=== PATIENT | male | born 1950 | race Caucasian/White ===

== ENCOUNTER 2019-09-27 09:14 | Outpatient (RCR) | payer MEDICARE, BC, SELFPAY ==
[2019-09-27 09:48] VITALS: BP 123/80; PULSE 100; RESP 20; TEMP 35.9; BMI 25.7
--- NOTE | 2019-09-27 17:45 | HP.PCM_ITS ---
(1) Sacral decubitus ulcer, stage IV Status: Chronic Current Visit: Yes Code(s): L89.154 - Pressure ulcer of sacral region, stage 4 (2) Hypertension Status: Chronic Current Visit: Yes Qualifiers: Hypertension type: essential hypertension Qualified Code(s): I10 - Essential (primary) hypertension Code(s): I10 - Essential (primary) hypertension (3) Hyperlipidemia Status: Chronic Current Visit: Yes Qualifiers: Hyperlipidemia type: unspecified Qualified Code(s): E78.5 - Hyperlipidemia, unspecified Code(s): E78.5 - Hyperlipidemia, unspecified (4) Cellulitis and abscess of buttock Status: Chronic Current Visit: Yes Code(s): L02.31 - Cutaneous abscess of buttock; L03.317 - Cellulitis of buttock History of Present Illness Date of Service: 09/27/19 Chief Complaint: pressure ulcer of sacrum/coccyx History of Wound: Jose is a very pleasant 69 yo gentleman who presents to the wound healing center for treatment of a pressure ulcer of his sacral area upon suggestion of his home health nurse. He was hospitalized on 08/23/2019 for bilateral pneumonia and exposure to COVID-19 and transferred from [place] to [facility] in [place] where he was intubated and in the ICU for he thinks approx. 2 weeks. He had pressure ulcer at the end of his hospital stay and reports that he was not turned while he was in the ICU and then was transferred to [facility] facility for another 10 days for strengthening and the physician at the Rehab facility did not examine the ulcer but prescribed optifoam dressing and when he was finally discharged home on 09/19/2019 he was prescribed to use Santyl and optifoam. He began receiving Home Health services this week and the nurse evaluated his sacral ulcer and felt it was likely infected and needed treatment and evaluation by a wound healing specialist and referred him to [facility] wound center. He reports that he and his have been using maxi pads and incontinence briefs to absorb the heavy drainage from the ulcer with changing up to 4 times/day. They have also been applying Santyl daily since he was discharged from rehab facility. He was started on doxycycline on 09/26/2019 by the supervising physician from Home Health. No cultures were taken of the ulcer. He denies any fever or chills, cough, dyspnea but admits to an odor and very heavy drainage and severe pain from his wound. He has been trying to offload his sacral area as it is very painful for him to lie on his back or sit because of the ulcer. Minimal hospital reports were received from [facility] that indicate that he was tested for multiple virus and bacterial causes of pneumonia, including coronaviruses but not COVID-19 specifically but based on his hospital course as he provides history and the imaging findings desccribed in the reports it is likely that he suffered from COVID-19 infection, although he does not exhibit any respiratory symptoms currently. Past Medical History Past Medical History: Chronic Problems Cellulitis and abscess of buttock (Chronic) Former smoker (Chronic) History of pneumonia (Chronic) Sacral decubitus ulcer, stage IV (Chronic) Benign prostatic hyperplasia (Chronic) Hypertension (Chronic) Hyperlipidemia (Chronic) Surgical History: appendectomy, herniorrhaphy, total knee arthroplasty, - - Back surgery, shoulder surgery. Allergies/Adverse Reactions: Allergies meloxicam Allergy (Verified 09/27/19 11:52) Swelling Home Medications: Ambulatory Orders Medication Instructions Recorded Metoprolol(XL)Succ [Toprol Xl 50 mg PO QHS 12/12/13 (Beta Tre)] Multivitamins,Therapeutic 1 tab PO DAILY 12/12/13 [Multivitamin] Aspirin E.C. [Ecotrin] 81 mg PO DAILY@0800 09/27/19 Lisinopril [Zestril] 10 mg PO DAILY 09/27/19 Pantoprazole Sodium [Protonix] 20 mg PO DAILY 09/27/19 Simvastatin 40 mg PO QHS 09/27/19 - Family History Maternal No pertinent history Paternal No pertinent history Lives: Spouse/ Significant Other Smoking Status: Former smoker Tobacco Use: Non-smoker Alcohol: None Drugs: None Review of Systems Constitutional: Reports: Weight Change - due to hospitalization. Denies: Chill s, Fever Eyes: Denies: Pain, Vision Change HEENT: Denies: Difficulty Hearing, Difficulty Swallowing, Sinus Congestion Cardiovascular: Denies: Chest Pain, Palpitations Respiratory: Reports: Shortness of breath upon exertion. Denies: Cough, Shortness of Breath Gastrointestinal: Denies: Diarrhea, Nausea, Vomiting Genitourinary: Denies: Dysuria, Hematuria Skin: Reports: Wounds Neurological: Denies: Numbness, Tingling Endocrine: Denies: Heat/ Cold Intolerance, Polydipsia, Polyuria Hematologic/ Lymphatic: Denies: Easy Bruising, Easy Bleeding - Physical Exam Vital Signs Temp Pulse Resp BP 96.6 F L 100 20 H 123/80 H 09/27/19 09:48 09/27/19 09:48 09/27/19 09:48 09/27/19 09:48 General: Alert, Oriented x3, Cooperative, No apparent distress HEENT: Atraumatic, Normocephalic Oral: Moist Mucosa Neck: Supple Abdomen: Soft, Non Tender Extremities: No edema Skin: Ulcer/ Wound Wound Measurements and Assessment WC - Nurse 1 - General Ulcer Measurement Start: 09/27/19 09:48 Freq: Status: Active Protocol: Activity Type Activity Date Activity User E-Sign Co-Sign Detail Recorded Client Recorded Date Recorded By Document 09/27/19 09:48 MW [id number] 09/27/19 10:04 MW 09/27/19 09:48 Wound Center Nurse 1 [Ulcer Assessment] #1 Sacrum -Combined with other wound No -Current Size (cm) - Length 10.5 -Current Size (cm) - Width 6.0 -Current Size (cm) - Depth 0.6 -Total Square Cm 63.00 -Date of Last Picture (Recall this 09/27/19 field) -Photo Taken Yes -Epithelialization None Present -Tunneling No -Undermining/Tunneling No -Circular Undermining No -Exudate Amt Large -Exudate Type Yellow/Green -Wound Margin Flat & Intact -Granulation Amt None Present (0 %) -Granulation Quality N/A -Slough/Fibrin Yes -Necrosis Amt Large (67-100%) -Necrotic Tissue Type Adherent Slough -Structure Exposed N/A -Texture (Kori-wound Skin Appearance) No Abnormality, Assessed -Moisture (Kori-wound Skin Appearance Assessed ) -Color (Kori-wound Skin Appearance) Assessed, Erythema -Temperature (Kori-wound Skin No Abnormality Appearance) (Pt Warm) -Tenderness on Palpation (Kori-wound No Skin Appearance) -Ulcer Cleansing soap and water -Foul Odor after Cleansing No -Anesthetic Used 4% Lidocaine Solution,5% Lidocaine Gel [Edema Assessment] -Lower Limb Edema Present No WC - Nurse 2 - General Ulcer CM Notes Start: 09/27/19 09:48 Freq: Status: Active Protocol: Activity Type Activity Date Activity User E-Sign Co-Sign Detail Recorded Client Recorded Date Recorded By Document 09/27/19 10:42 DV [id number] 09/27/19 11:06 DV 09/27/19 10:42 Wound Center Nurse 2 [Procedure/Treatment] #1 Sacrum -Time 10:48 -Correct Patient Yes -Correct Side, Site, Position Yes -Correct Procedure Yes -Procedure Performed Yes -Type of Procedure Debridement -Clinical Debridement Subcutaneous -Post Debridement Size (cm) - Length 11.3 -Post Debridement Size (cm) - Width 5.0 -Post Debridement Size (cm) - Depth 3.5 -Total Square Cm 56.50 -Wound/Ulcer Outcome Not Healed -Ulcer Cleansing Rinsed/ Irrigated with Saline -Foul Odor after Cleansing No -Bioengineered Tissue No -Bleeding Controlled with Pressure -Offloading No -Treatment Response Procedure Tolerated Well [See Physician Procedure note for Specifics] Pain Scale: 0-10 Numeric [Pain] -Is Patient Pain Free? Yes Psych/Mental Status: Normal Affect, Appropriate Debridement Note Post-Debridement Measurements/Treatment WC - Nurse 2 - General Ulcer CM Notes Start: 09/27/19 09:48 Freq: Status: Active Protocol: Activity Type Activity Date Activity User E-Sign Co-Sign Detail Recorded Client Recorded Date Recorded By Document 09/27/19 10:42 DV [id number] 09/27/19 11:06 DV 09/27/19 10:42 Wound Center Nurse 2 #1 Sacrum -Time 10:48 -Correct Patient Yes -Correct Side, Site, Position Yes -Correct Procedure Yes -Procedure Performed Yes -Type of Procedure Debridement -Clinical Debridement Subcutaneous -Post Debridement Size (cm) - Length 11.3 -Post Debridement Size (cm) - Width 5.0 -Post Debridement Size (cm) - Depth 3.5 -Total Square Cm 56.50 -Wound/Ulcer Outcome Not Healed -Ulcer Cleansing Rinsed/ Irrigated with Saline -Foul Odor after Cleansing No -Bioengineered Tissue No -Bleeding Controlled with Pressure -Offloading No -Treatment Response Procedure Tolerated Well Pain Scale: 0-10 Numeric Is Patient Pain Free? Yes Wound debrided: sacrum Laterality: Not Applicable Wound Grade/Stage: Stage IV Type of Debridement: Excisional debridement Anesthesia Used: 4% Lidocaine Solution, 5% Lidocaine Gel Depth: Down to and including healthy tissue, in the subcutaneous layer, to muscle, to bone Percentage of wound debrided: 100 Instrument Used: #15 blade, Forceps Tissue Removed: devitalized tissue, necrotic fatty tissue Severity: Necrosis of Muscle Amount of bleeding with debridement: Mild Bleeding Controlled with: Compression and gauze Patient tolerated procedure well Assessment/Plan Active Problems Cellulitis and abscess of buttock (Chronic) Sacral decubitus ulcer, stage IV (Chronic) Hypertension (Chronic) Hyperlipidemia (Chronic) Assessment: Stage IV pressure ulcer of sacrum/coccyx - possible osteomyelitis. Cellulitis buttock. HTN. h/o bilateral pneumonia - likely COVID-19 - resolved Plan: Jose's ulcer was evaluated and debrided but debridement was discontinued once the bony sacrum was identified and it was clear that a larger more in-depth surgical debridement would be necessary. Discussed options for further treatment and he was referred to the ER at [facility] for imaging and labs as well as consultation with ID and surgery for definitive and comprehensive treatment and to expedite his care as an inpatient to improve potential outcome and prevent further tissue loss. His case was discussed with Dr. Prasad in the ER as well as Dr. Dooley. His wound was dressed with a wet to dry dressing and his transported him to the ER via their private vehicle. He will likely require a wound vac to help mediate drainage and fill the deficit that surgical debridement will leave and this was explained and discussed with the patient. Will follow up based upon his hospital course and testing. Encouraged to call when he is discharged from hospital to schedule appointment for follow up.
== END 2019-10-13 23:59 ==
LOC: WC 09:14
PROVIDERS: PCP Internal Medicine Infectious Disease; Referring Provider Internal Medicine Infectious Disease; Visit Provider Family Medicine
DX: L89.154 Pressure ulcer of sacral region, stage 4 (principal); I10 Essential (primary) hypertension; E78.5 Hyperlipidemia, unspecified; L03.317 Cellulitis of buttock; Z87.891 Personal history of nicotine dependence; Z79.82 Long term (current) use of aspirin; Z79.899 Other long term (current) drug therapy
CPT/HCPCS: 11042; 11045; 99204; G0463

== ENCOUNTER 2019-09-27 11:48 | Inpatient (IN) | payer MEDICARE, SELFPAY ==
[2019-09-27] VITALS (7 sets, daily range): BP systolic 120–138; BP diastolic 80–107; PULSE 76–104; RESP 17–18; TEMP 36.4–36.9; O2SAT 92–99; BMI 25.7; BMI 26.1
[2019-09-27 13:22] LABS: Absolute Lymphocyte Count 2.02 X10^3/uL (0.83-4.51); Absolute Neutrophil Count 6.8 X10^3/uL (2.0-7.7); Basophil# 0.06 X10^3/uL; Basophil% 0.6 % (0-1); Eosinophil# 0.07 X10^3/uL; Eosinophils% 0.7 % (0-5); Hematocrit 33.6 % (40-54); Hemoglobin 10.8 g/dL (13.0-16.5); Lymphocyte # 2.02 X10^3/ul (4.0); Lymphocyte % 20.2 % (19-41); Mean Corp Hgb Conc 32.1 g/dL (32-36); Mean Corpuscular Hgb 29.8 pg (27.0-32.0); Mean Corpuscular Volume 92.6 fL (80-94); Mean Platelet Vol. 10.1 fl (6.2-12.0); Monocyte# 0.95 X10^3/uL; Monocyte% 9.5 % (0-10); NRBC Flagged by Analyzer 0 % (0-5); Neutrophil # 6.81 X10^3/uL (2.7-7.7); Neutrophil % 68.1 % (47-70); Platelet Count 273 K/mm3 (150-450); RBC Distribution Width CV 13.4 % (11.6-14.6); RBC Distribution Width SD 45.3 fl (35.1-43.9); Red Blood Count 3.63 M/mm3 (4.6-6.2)
[2019-09-27 13:30] LABS: International Normalized Ratio 1.1
[2019-09-27 13:31] LABS: Partial Thromboplast Time 25.8 Seconds (24.1-36.2)
--- NOTE | 2019-09-27 13:36 | CT_ITS ---
STUDY: CT ABDOMEN AND PELVIS WITHOUT CONTRAST REASON FOR EXAM: Male, 69 years old. DECUBITUS ULCER SENT TO BE ADMITTED FOR SACRAL WOUND SX WAS ON VENT FOR 2 WEEKS GOT OUT OF HOSP 2 WEEKS AGO. RADIATION DOSAGE (If Supplied By Facility): CTDIvol = ( 9.05 ) mGy, DLP = ( 544.99 ) mGycm TECHNIQUE: Transaxial images were obtained from the dome of the diaphragm to the symphysis pubis without oral contrast, and without intravenous contrast. Sagittal and coronal images were reconstructed. Individualized dose optimization techniques were used for this CT. COMPARISON: None. FINDINGS: There is a 2.8 cm x 3.9 cm ulceration in the central buttocks just distal to the coccyx. The ulceration extends into the right gluteus maximum muscle with air within it. This also extends into the medial left gluteus maximum muscle. I also suspect involvement of the overlying lowest coccygeal segment. Persistent increased linear markings in the lower lobes as well as in the right middle lobe with focal areas of bronchiectasis. The visualized portions of the heart are within normal limits. Normal liver. Normal gallbladder and extrahepatic biliary system. Normal spleen. Normal pancreas. Normal bilateral adrenal glands. Normal right kidney. Normal left kidney. Moderate sized hiatal hernia. Normal small intestine. There are multiple colonic diverticula consistent with diverticulosis. The appendix is visualized and appears normal. There is diffuse atherosclerotic calcification of the abdominal aorta, without a demonstrated aneurysm. Normal inferior vena cava. There is borderline retroperitoneal lymphadenopathy with enlarged nodes no greater than 10mm in the short axis diameter. Normal urinary bladder. There is a left-sided inguinal hernia containing adipose tissue. There are diffuse degenerative changes of the visualized lumbar spine. CT/Abdomen/Pelvis without Cont IMPRESSION: Soft tissue ulceration with extension into the right and left gluteus maximum muscle as with air. I suspect involvement of the distal coccygeal bony element. Electronically Signed: Yuri Valadez, at 14:22 EDT , Service support ,
[2019-09-27 13:39] LABS: ALB/GLOB Ratio 0.7 RATIO (0.9-2.4); AST(SGOT) 18 U/L (15-37); Alanine Aminotransfer ALT/SGPT 28 U/L (16-61); Albumin, Serum 2.9 g/dL (3.2-5.0); Alkaline Phosphatase 79 U/L (45-117); Anion Gap 6 (5-15); BUN 13 mg/dL (7-18); BUN/Creat Ratio 13.9 RATIO (10-20); Calcium,Total 9.5 mg/dL (8.5-10.1); Chloride 107 mmol/L (98-107); Creatinine, Serum 0.93 mg/dL (0.70-1.30); EST Glomerular Filtration Rate 86 mL/min (>60); Est Glom Filt Rate - Afr Amer 104 mL/min (>60); Estimated Creatinine Clearance 89.61 ml/min; Glucose 98 mg/dL (74-106); Potassium 3.8 mmol/L (3.5-5.1); Protein, Total 6.9 g/dL (6.4-8.2); Sodium Level 141 mmol/L (136-145)
[2019-09-27 13:42] LABS: Lactic Acid 1.9 mmol/L (0.4-1.9)
--- NOTE | 2019-09-27 14:46 | NURSING ---
MED SURG DECUBITUS ULCER ASHELFAH
--- NOTE | 2019-09-27 14:58 | PCM.HP.STD ---
Problem List (1) Sacral decubitus ulcer, stage IV Status: Acute (2) Benign prostatic hyperplasia Status: Chronic (3) Hypertension Status: Chronic (4) Hyperlipidemia Status: Chronic History of Present Illness Date of Admission: 09/27/19 Chief Complaint: Patient was sent to ED by wound care center for infected sacral ulcer. The patient is a 69 year old M with past medical history as mentioned above who was sent by Dr. Cannon at the wound care center today for infected decubitus sacral ulcer. Patient had a history of pneumonia on August 23, 2019, ended up in the ICU on mechanical ventilation for 2 weeks at [facility] and then he was transferred to the floor for 1 week and then he went to a longterm for rehabilitation for another week. He was discharged home in early September. During that time, he developed sacral ulcer which has been draining since he came out of the longterm. Since that time, he has been having pain at the sacral region, dull aching constant pain, 4-5 out of 10 in severity, sometimes becomes more sharp pain upon moving and standing, not radiating, associated with pus discharge and without aggravating or relieving factors. He denied fever or chills. He mentioned that his has been changing the dressing almost 4 times a day because of extensive drainage which is mainly pus. In the emergency department, his vital signs were stable. Routine blood work was remarkable for hemoglobin of 10.8 g/dL, otherwise normal. Lactic acid was normal. LFT was unremarkable. CT scan abdomen and pelvis without contrast revealed soft tissue ulceration with extension into the right and left gluteus reese muscles with air, possible involvement of the distal coccygeal bone. Patient is being admitted for infected stage IV decubitus sacral ulcer with extension into the bilateral gluteal reese muscles and possible coccygeal bone involvement. Past Medical History Past Medical History (Chronic Problems): Chronic Problems Benign prostatic hyperplasia (Chronic) Hypertension (Chronic) Hyperlipidemia (Chronic) Allergies meloxicam Allergy (Verified 09/27/19 11:52) Swelling Home Medications: Ambulatory Orders Medication Instructions Recorded Metoprolol(XL)Succ [Toprol Xl 50 mg PO QHS 12/12/13 (Beta Tre)] Multivitamins,Therapeutic 1 tab PO DAILY 12/12/13 [Multivitamin] Aspirin E.C. [Ecotrin] 81 mg PO DAILY@0800 09/27/19 Lisinopril [Zestril] 10 mg PO DAILY 09/27/19 Pantoprazole Sodium [Protonix] 20 mg PO DAILY 09/27/19 Simvastatin 40 mg PO QHS 09/27/19 Surgical History: appendectomy, herniorrhaphy, total knee arthroplasty, - - Back surgery, shoulder surgery. Psychiatric History: No pertinent psych hx Lives: Spouse/ Significant Other Smoking Status: Former smoker - Smoked for short period Of time when he was younger. Alcohol: Occasional Drugs: None - *Family History Maternal History Items: No pertinent history Paternal History Items: No pertinent history Review of Systems Constitutional: Denies: Anorexia, Chills, Fever, Weakness Eyes: Denies: Blurred vision, Double vision, Drainage, Redness HEENT: Denies: Difficulty Hearing, Ear Pain, Eye Pain, Nasal Congestion, Sore Throat Cardiovascular: Denies: Chest Pain, Chest Pressure, Chest Tightness, Edema, Heaviness, Palpitations, Syncope Respiratory: Denies: Cough, Pleuritic Pain, Shortness of Breath, Sputum production, Wheezing Gastrointestinal: Denies: Abdominal Pain, Constipation, Diarrhea, Nausea, Vomiting Genitourinary: Denies: Dysuria, Frequency, Hematuria Musculoskeletal: Reports: Back Pain. Denies: Arm Pain, Foot Pain Skin: Denies: Dryness, Rash Neurological: Denies: Balance problems, Double vision, Change in Speech, Slurred speech, Headaches, Incoordination, Numbness Psychiatric: Denies: Anxiety, Depression Endocrine: Denies: Change in Body Habitus, Polydipsia, Polyuria VTE Information - Inpt Only VTE Present on Admission: No VTE Mechan Device Prophylaxis: None VTE Pharm Prophylaxis ordered?: Yes Patient Problems: Active and Suspected Problems Sacral decubitus ulcer, stage IV (Acute) - Physical Exam Vitals/I&O's: Vital Signs Temp Pulse Resp BP Pulse Ox 98.2 F 81 17 127/107 H 98 09/27/19 13:40 09/27/19 13:49 09/27/19 13:49 09/27/19 13:49 09/27/19 13:49 Oxygen Delivery Method Room Air Weight: 203 lb 6.4 oz Body Mass Index (BMI) 26.1 General: Alert, Oriented x3, Cooperative, No apparent distress HEENT: Atraumatic, PERRLA, EOMI, Normocephalic Oral: Moist Mucosa, No Gingival or Mucosal Lesions/ Ulcerations Neck: Supple, No JVD, Negative Carotid Bruits, Trachea Midline, Thyroid Normal Size and Texture Lungs: Clear to auscultation, Normal air movement, No rhonchi, No wheeze, No rales Cardiovascular: Regular rate, Regular Rhythm, Normal S1, Normal S2, PMI Normal Abdomen: Bowel Sounds Present, Soft, Non Tender, Non-Distended, No Hepato-splenomegaly Extremities: No clubbing, No cyanosis, No edema Skin: No rashes, Ulcer/ Wound, - - Lower back: Decubitus sacral ulcer measuring about 6 x 7 cm, very deep, pus with surrounding mild erythema. Lymphatic: No Cervical, Supraclavicular, or Inguinal Adenopathy Neurological: Cranial nerves II-XII grossly intact, Motor Exam 5/5 strength throughout Psych/Mental Status: Normal Affect, Appropriate, Alert and oriented to time, place, person, mood and affect Laboratory Results 09/27/19 13:10: WBC 10.0, RBC 3.63 L, Hgb 10.8 L, Hct 33.6 L, MCV 92.6, MCH 29.8, MCHC 32.1, RDW Std Deviation 45.3 H, RDW Coeff of Thelma 13.4, Plt Count 273, MPV 10.1, Immature Gran % (Auto) 0.900, Neut % (Auto) 68.1, Lymph % (Auto) 20.2, [place] % (Auto) 9.5, Eos % (Auto) 0.7, Baso % (Auto) 0.6, Absolute Neuts (auto) 6.8, Absolute Lymphs (auto) 2.02, Nucleated RBC % 0 09/27/19 13:10: PT 14.0, INR 1.1, APTT 25.8 09/27/19 13:10: Sodium 141, Potassium 3.8, Chloride 107, Carbon Dioxide 28.0, Anion Gap 6, BUN 13, Creatinine 0.93, Estim Creat Clear Calc 89.61, Est GFR (MDRD) Af Amer 104, Est GFR (MDRD) Non-Af 86, BUN/Creatinine Ratio 13.9, Glucose 98, Calcium 9.5, Total Bilirubin 0.50, AST 18, ALT 28, Alkaline Phosphatase 79, Total Protein 6.9, Albumin 2.9 L, Globulin 4.0, Albumin/Globulin Ratio 0.7 L 09/27/19 13:10: Lactic Acid 1.9 Clinical Impression(s) from Imaging Studies Abdomen/Pelvis CT 09/27/19 13:36 IMPRESSION: Soft tissue ulceration with extension into the right and left gluteus maximum muscle as with air. I suspect involvement of the distal coccygeal bony element. Electronically Signed: Yuri Valadez, at 14:22 EDT , Service support , Assessment/Plan All Active Problems Sacral decubitus ulcer, stage IV (Acute) This is a 69 years old male patient was sent to ED from the wound care center by Dr. Cannon for infected stage IV decubitus sacral ulcer and he is being admitted for treatment and he may need surgical intervention. #1 infected stage IV decubitus sacral ulcer: With involvement of bilateral gluteal reese muscles and possible coccygeal bone involvement. No evidence of sepsis or severe sepsis. This also developed after patient was in ICU for 2 weeks for pneumonia at [facility]. It has been draining pus for several weeks. Vital signs are stable, no leukocytosis. Plan: Admit to MedSurg floor, blood culture, wound culture, urinalysis, urine culture, MRSA wound screen by PCR, Tylenol PRN, OxyIR PRN, Zofran PRN, start IV vancomycin and Zosyn, plastic surgery consult, wound care nurse consult, preoperative chest x-ray and EKG, repeat CBC and BMP after tomorrow, PT OT evaluation and treatment. #2 recent history of pneumonia: Completed course of antibiotics several weeks ago, resolved. Respiratory status stable, pulse ox is maintained on room air. #3 anemia: Likely chronic because of the acute recent illness. Hemoglobin is 10.8 g/dL. No evidence of active bleeding. No indication for blood transfusion. Plan to monitor. #4 hypertension: Blood pressure stable, continue lisinopril and metoprolol as well as aspirin. #5 hyperlipidemia: Stable, continue statins. #6 benign prostatic hypertrophy: Patient told me that he does have BPH but he is not taking medications. He denied any significant urinary symptoms. #7 DVT prophylaxis: Subcu Lovenox. This note was generated with Dragon dictation software. It may contain incorrect words, spelling, and punctuation that were not noted in checking the note before signing. Inpatient E&M: 96720 Init Hosp L3
--- NOTE | 2019-09-27 15:05 | ED.DCSUM_ITS ---
- ER Visit Summary Date of Service: 09/27/19 Chief Complaint: Decubitus ulcer History of Present Illness: The patient is a [address] Alvarado. He reports that he was admitted to [facility] in August and was in the ICU on a ventilator for 2 weeks. He was then there for a week after that. During this period of time he developed a decubitus ulcer. States that he tested negative for COVID-19 twice while there. Patient went to the wound clinic today and saw Dr. Cannon and had debridement of his decubitus ulcer, but he is got purulent drainage and that extends to bone so she sent him to the emergency department for further evaluation. Physical Examination: Vitals: Stable. Afebrile. General: Well-nourished and well-developed. Head: Normocephalic atraumatic. Neck: Supple, no lymphadenopathy. No JVD. Nontender. Cardiovascular: Regular rate and rhythm. No murmurs. Respiratory: No respiratory distress. Clear to auscultation bilaterally. Abdominal: Soft, nontender, nondistended, normal bowel sounds. No guarding, rebound, or peritoneal signs. Back: Nontender. Extremities: Nontender, no edema. Skin: Approximately 11 cm in diameter decubitus ulcer over the sacrum with purulent drainage that is foul-smelling. This does appear to extend to bone. Neurologic: Alert and oriented ?3. Cranial nerves II through XII are intact. Normal strength and sensation. Psych: Normal affect. Test Results: CBC shows an H&H of 10.8 and 33.6. Chem-7 is normal. Lactic acid is 1.9. LFTs show an albumin of 2.9. INR is 1.1. PTT is 25.8. Clinical Impression(s) from Imaging Studies Abdomen/Pelvis CT 09/27/19 13:36 IMPRESSION: Soft tissue ulceration with extension into the right and left gluteus maximum muscle as with air. I suspect involvement of the distal coccygeal bony element. Electronically Signed: Yuri Valadez, at 14:22 EDT , Service support , Emergency Department Course and Treatment: Aerobic and anaerobic cultures were obtained from the wound. Blood cultures were sent. The patient was given Zosyn and vancomycin IV. Treatment Plan: The patient was discussed with Dr. Dooley and Dr. Mills. He will be admitted to the hospital for further evaluation and treatment. Disposition: Admitted in stable condition. Impression: 1. Decubitus ulcer, infected. This note was generated with [employer] dictation software. It may contain incorrect words, spelling, and punctuation that were not noted in review of the chart prior to signing
--- NOTE | 2019-09-27 15:18 | EKG12_ITS ---
Test Reason : Blood Pressure : / mmHG Vent. Rate : 084 BPM Atrial Rate : 084 BPM P-R Int : 166 ms QRS Dur : 090 ms QT Int : 408 ms P-R-T Axes : 026 021 041 degrees QTc Int : 482 ms Poor data quality, interpretation may be adversely affected Normal sinus rhythm Prolonged QT Abnormal ECG When compared with ECG of 01-AUG-2013 17:41, Vent. rate has increased BY 28 BPM Confirmed by MIRA PENN, EYAD ([id number]), assistant production editor ARIS EDMOND ([id number]) on 10/01/2019 4:03:01 PM Referred By: MAHENDRA Confirmed By:EYAD MEYERS MD
--- NOTE | 2019-09-27 15:26 | RAD_ITS ---
STUDY: X-RAY CHEST REASON FOR EXAM: Male, 69 years old. PRE-OP FOR SACRAL WOUND TECHNIQUE: 1 view COMPARISON: None. FINDINGS: Mild linear type and interstitial changes of the right lung likely to be chronic in nature. Slight elevation of the right diaphragm. Negative for substantial pleural. Negative for major consolidation. Normal size heart. Normal mediastinum and alice. Normal visualized pulmonary arteries. Mild elongation of the thoracic aorta. Normal visualized thoracic spine. Normal visualized ribs, clavicles, and shoulders. There is no demonstrated abnormality of the visualized soft tissue structures of the upper abdomen. RAD/Chest 1 View (Portable) IMPRESSION: Chronic changes right lung. Negative for major consolidation, atelectasis, cardiomegaly or pleural effusion. Electronically Signed: Andressa Mitchell MD at 16:51 EDT , Service support ,
--- NOTE | 2019-09-27 16:01 | PCM.RX.CS ---
Consult Pharmacy has been consulted to manage selected antiobiotic: Vancomycin Type of Consult: New start Suspected Infection: Skin/Soft tissue, Other - possible bone involvement Prior Doses of Antibiotics Received/Current Regimen: Received 1500mg IV x1 in E.R. starting at 15:00 today Labs: Sodium 141 mmol/L (136-145) 09/27/19 13:10 Potassium 3.8 mmol/L (3.5-5.1) 09/27/19 13:10 Chloride 107 mmol/L (98-107) 09/27/19 13:10 Carbon Dioxide 28.0 mmol/L (21.0-32.0) 09/27/19 13:10 Anion Gap 6 (5-15) 09/27/19 13:10 BUN 13 mg/dL (7-18) 09/27/19 13:10 Creatinine 0.93 mg/dL (0.70-1.30) 09/27/19 13:10 Est GFR (MDRD) Af Amer 104 mL/min (>60) 09/27/19 13:10 Est GFR (MDRD) Non-Af 86 mL/min (>60) 09/27/19 13:10 BUN/Creatinine Ratio 13.9 RATIO (10-20) 09/27/19 13:10 Glucose 98 mg/dL (74-106) 09/27/19 13:10 Microbiology: Microbiology 09/27/19 12:10 Wound - Sacral Gram Stain - Final Weight used for dosin.7 kg Estimated Creatinine Clearance: 89.6ml/min Goal Trough: 15-20 mcg/mL Pharmacy Plan for Drug Dosing: After initial dose, continue with 1500mg IV q12h. Obtain a trough level before the 4th dose in the morning of 09/29/19. Pharmacy Service will continue to monitor and adjust dosing as required. Follow-Up Labs: Trough Vancomycin Labs to be done on [date and time ordered]: 09/29/19 02:30
[2019-09-27 17:44] LABS: M R Staph aureus DNA By PCR Negative (Negative); Probe Check PASS; Specimen Processing Control PASS; Staph aureus DNA By PCR NEGATIVE (Negative)
[2019-09-27 18:21] LABS: Bacteria 0 SEEN /hpf (None Seen); Mucous, Urine 0 SEEN /hpf (<or=2+); Squamous Epithelial Cells - UA 0 SEEN /hpf (0-5)
[2019-09-27 18:38] LABS: Color, Urine Yellow (Yellow); Glucose, Dipstick Normal (Normal); Ketone-Dipstick Negative (Negative); Leukocyte Esterase-Dipstick Negative /ul (Negative); Nitrite-Dipstick Negative (Negative); Occult Blood-Urine Negative /ul (Negative); Protein-Dipstick Negative (Negative); Urine Bilirubin Dipstick Negative (Negative); Urine Clarity Clear (Clear); Urine Urobilinogen Normal (Normal)
[2019-09-27 19:01] LABS: Red Blood Cells-Urine 0-5 SEEN /hpf (0-5)
[2019-09-27 19:02] LABS: White Blood Cells 0-5 SEEN /hpf (0-5)
--- NOTE | 2019-09-27 19:09 | PCM.CONS.GEN ---
Reason for Consult Date of Consultation: 09/27/19 Reason for Consultation: Infected necrotic sacral pressure sore, Stage IV, with osteomyelitis. REFERRING PHYSICIAN: Dr. Mills. LOCKSTITCH POCKET SETTER: Dr. Dooley. History of Present Illness: The patient is a 69 year old M with recent history of pneumonia requiring hospitalization and intubation at [facility] on 08/23/19, developed a sacral pressure sore that has worsened over the last couple of weeks. Patient is ambulatory. He reports he was exposed to someone at work with COVID-19. He was recently discharged from a Rehab Unit. He went to the Wound Center for the first time with a foul smelling necrotic sacral pressure sore. The pressure sore was unroofed in the Wound Center by Dr. Cannon, and he was sent to the ED. Initial WBC was normal. CT Pelvis showed suspicion for osteomyelitis. He was started on Vancomycin and Zosyn and for more aggressive wound care. Patient does complain of pain in the sacral pressure sore area. He states he has no trouble with his bowel movements. I was asked to evaluate this patient for surgical options for treatment. Past Medical History Past Medical History (Chronic Problems): Chronic Problems Former smoker (Chronic) History of pneumonia (Chronic) Benign prostatic hyperplasia (Chronic) Hypertension (Chronic) Hyperlipidemia (Chronic) Allergies meloxicam Allergy (Verified 09/27/19 11:52) Swelling Home Medications: Ambulatory Orders Medication Instructions Recorded Metoprolol(XL)Succ [Toprol Xl 50 mg PO QHS 12/12/13 (Beta Tre)] Multivitamins,Therapeutic 1 tab PO DAILY 12/12/13 [Multivitamin] Aspirin E.C. [Ecotrin] 81 mg PO DAILY@0800 09/27/19 Lisinopril [Zestril] 10 mg PO DAILY 09/27/19 Pantoprazole Sodium [Protonix] 20 mg PO DAILY 09/27/19 Simvastatin 40 mg PO QHS 09/27/19 Surgical History: appendectomy, herniorrhaphy, total knee arthroplasty, - - Back surgery, shoulder surgery. Psychiatric History: No pertinent psych hx Lives: Spouse/ Significant Other Smoking Status: Former smoker Alcohol: Occasional Drugs: None - *Family History Maternal History Items: No pertinent history Paternal History Items: No pertinent history Review of Systems Comment: Constitutional: Denies: Anorexia, Chills, Fever, Weakness. Eyes: Denies: Blurred vision, Double vision, Drainage, Redness. HEENT: Denies: Difficulty Hearing, Ear Pain, Eye Pain, Nasal Congestion, Sore Throat. Cardiovascular: Denies: Chest Pain, Chest Pressure, Chest Tightness, Edema, Heaviness, Palpitations, Syncope. Respiratory: Denies: Cough, Pleuritic Pain, Shortness of Breath, Sputum production, Wheezing. Gastrointestinal: Denies: Abdominal Pain, Constipation, Diarrhea, Nausea, Vomiting. Genitourinary: Denies: Dysuria, Frequency, Hematuria. Musculoskeletal: Reports: Back Pain. Denies: Arm Pain, Foot Pain. Skin: Denies: Dryness, Rash. Neurological: Denies: Balance problems, Double vision, Change in Speech, Slurred speech, Headaches, Incoordination, Numbness. Psychiatric: Denies: Anxiety, Depression. Endocrine: Denies: Change in Body Habitus, Polydipsia, Polyuria - Physical Exam Vitals/I&O's: General: Alert, Oriented x3, Cooperative. HEENT: PERRLA, EOMI. Oral: Moist Mucosa. Neck: Supple, Nontender. No cervical adenopathy. Lungs: Clear to auscultation. Cardiovascular: Regular rate, Regular Rhythm. Abdomen: Soft, Non-Distended. Extremities: No clubbing, No cyanosis, No edema Skin: No rashes, Ulcer/ Wound, - - There is a large sacral pressure sore that extends through muscle down to the bone. Some periwound redness noted. Tenderness to palpation. Some drainage noted. Some odor noted. Measures 10 x 6 x 3 cm. Stage IV pressure sore. Lymphatic: No Cervical, Supraclavicular, or Inguinal Adenopathy Neurological: Cranial nerves II-XII grossly intact. Psych/Mental Status: Normal Affect, Appropriate. Vital Signs Temp Pulse Resp BP Pulse Ox 98.2 F 86 18 137/93 H 97 09/27/19 15:46 09/27/19 15:46 09/27/19 15:46 09/27/19 15:46 09/27/19 15:46 Oxygen Delivery Method Room Air Weight: 200 lb Body Mass Index (BMI) 25.7 Intake and Output for Last 24 Hours 09/25/19 09/26/19 09/27/19 23:59 23:59 23:59 Intake Total 1490 / 1490 Output Total 200 / 200 Balance 1290 / 1290 Microbiology Past 72 Hours 09/27/19 12:10 Wound - Sacral Gram Stain - Final Laboratory Results 09/27/19 13:10: WBC 10.0, RBC 3.63 L, Hgb 10.8 L, Hct 33.6 L, MCV 92.6, MCH 29.8, MCHC 32.1, RDW Std Deviation 45.3 H, RDW Coeff of Thelma 13.4, Plt Count 273, MPV 10.1, Immature Gran % (Auto) 0.900, Neut % (Auto) 68.1, Lymph % (Auto) 20.2, [place] % (Auto) 9.5, Eos % (Auto) 0.7, Baso % (Auto) 0.6, Absolute Neuts (auto) 6.8, Absolute Lymphs (auto) 2.02, Nucleated RBC % 0 09/27/19 13:10: PT 14.0, INR 1.1, APTT 25.8 09/27/19 13:10: Sodium 141, Potassium 3.8, Chloride 107, Carbon Dioxide 28.0, Anion Gap 6, BUN 13, Creatinine 0.93, Estim Creat Clear Calc 89.61, Est GFR (MDRD) Af Amer 104, Est GFR (MDRD) Non-Af 86, BUN/Creatinine Ratio 13.9, Glucose 98, Calcium 9.5, Total Bilirubin 0.50, AST 18, ALT 28, Alkaline Phosphatase 79, Total Protein 6.9, Albumin 2.9 L, Globulin 4.0, Albumin/Globulin Ratio 0.7 L 09/27/19 13:10: Lactic Acid 1.9 09/27/19 15:30: S.aureus Protein A PCR NEGATIVE, MRSA (PCR) Negative 09/27/19 18:10: Urine Color Yellow, Urine Clarity Clear, Urine pH 8.0, Ur Specific [place] 1.010, Urine Protein Negative, Urine Glucose (UA) Normal, Urine Ketones Negative, Urine Occult Blood Negative, Urine Nitrite Negative, Urine Bilirubin Negative, Urine Urobilinogen Normal, Ur Leukocyte Esterase Negative, Urine RBC 0-5 SEEN, Urine WBC 0-5 SEEN, Ur Squamous Epith Cells 0 SEEN, Urine Bacteria 0 SEEN, Urine Mucus 0 SEEN Diagnostic Data Abdomen/Pelvis CT 09/27/19 13:36 IMPRESSION: Soft tissue ulceration with extension into the right and left gluteus maximum muscle as with air. I suspect involvement of the distal coccygeal bony element. Electronically Signed: Yuri Allyson, at 14:22 EDT , Service support , Chest X-Ray 09/27/19 15:26 IMPRESSION: Chronic changes right lung. Negative for major consolidation, atelectasis, cardiomegaly or pleural effusion. Electronically Signed: Andressa Mitchell MD at 16:51 EDT , Service support , Current Medications Acetaminophen (Tylenol) 650 mg PO Q6H PRN PRN PRN Reason: Pain Score 1-10/Temp > 100.7 F Aspirin (Ecotrin) 81 mg PO DAILY@0800 [facility] Atorvastatin Calcium (Lipitor) 20 mg PO QHS [facility] Enoxaparin Sodium (Lovenox) 40 mg SC DAILY [facility] Piperacillin Sod/Tazobactam (Sod 3.375 gm/ Sodium Chloride) 50 mls @ 12.5 mls/hr IV Q8 [facility] Sodium Chloride () 250 mls @ 15 mls/hr IV .[id number] PRN PRN Reason: Saline Flush Vancomycin HCl 1,500 mg/ (Sodium Chloride) 530 mls @ 250 mls/hr IV Q12H [facility] Vancomycin IV Pharmacy to Dose (1 ea/ Sodium Chloride) 500 mls @ 250 mls/hr IV X1 PRN; Protocol PRN Reason: Rx to Dose Lisinopril (Zestril) 10 mg PO DAILY [facility] Metoprolol Succinate (Toprol Xl (Beta Tre)) 50 mg PO QHS [facility] Ondansetron HCl (Zofran) 4 mg IV Q8H PRN PRN PRN Reason: NAUSEA/VOMITING Oxycodone HCl (Oxyir) 5 mg PO Q4H PRN PRN PRN Reason: Pain Score 4-10/10 Pantoprazole Sodium (Protonix) 20 mg PO DAILY [facility] Senna/Docusate Sodium (Senokot-S, Kori-Colace) 2 tablet PO BID PRN PRN PRN Reason: Constipation Sodium Chloride () 10 - 40 ml IV UD PRN PRN Reason: SALINE FLUSH Zolpidem Tartrate (Ambien (Generic)) 5 mg PO QHS PRN PRN PRN Reason: INSOMNIA Assessment/Plan All Active Problems Osteomyelitis of pelvis (Acute) Skin necrosis (Acute) Sacral decubitus ulcer, stage IV (Acute) 1. Infected necrotic sacral pressure sore, Stage IV. 2. Clinical osteomyelitis. 3. Recent intubation for pneumonia. 4. Former smoker. Continue Vancomycin and Zosyn antibiotics. Wound cultures have been obtained. CT Pelvis reviewed. It shows suspicion for osteomyelitis. The pressure sore was unroofed of some necrotic tissue in the Wound Center today. His pressure sore is extensive and will need operative intervention. There will be excision of some nonviable muscle and I anticipate excision of bone as well that will be sent to Pathology for analysis to rule out carcinoma and to evaluate for osteomyelitis. Tissue and bone will also be sent to Microbiology for culture. A positive culture will necessitate antibiotic therapy. Postop wound care will be with the VAC. The patient is ambulatory as this pressure sore developed when he was recently hospitalized and intubated for pneumonia. I anticipate adequate enough healing of this pressure sore that I doubt a myocutaneous flap would be necessary for wound closure. Today with the size of the wound, bilateral myocutaneous flaps would be needed for wound closure. The problem with that is those muscles are useful with ambulation so detaching them from the trochanter would have ambulatory issues for this patient. So the goal is to proceed with adequate excision and debridement, wound care with the VAC, antibiotic therapy, and maximizing nutrition in order to make the wound more manageable for would closure with a single fasciocutaneous flap where the muscle itself is not detached from the trochanter and/or a possible skin graft if enough improvement is seen in the wound with bone covered with granulation tissue. Anticipate increased metabolic demands from the wound and will check a Prealbumin. Will encourage nutritional supplementation with protein to help the healing process. Will proceed with the surgery early next week under general anesthesia. With his history of exposure at work to COVID-19 and with his recent intubation for pneumonia, a COVID-19 test will be obtained before surgery. With the size of the pressure sore, patient will need a specialty bed such as a low air loss during his hospital stay. Patient was informed of the risks and complications of the procedure including alternatives to surgery. These were discussed with the patient personally. Patient voices understanding and wishes to proceed. Patient voices understanding the wound will be made larger from the excision and debridement. He also voices understanding that additional surgery for wound closure will be necessary in the future. Essential Procedure Criteria Procedure Essential: Yes Criteria Note: On 07/30/2019 the [facility] ([facility]) Public Order signed by [facility] Director Radha Duran M.D., regarding the Management of Non-Essential Surgeries and Procedures for the purpose of preserving Personal Protective Equipment (PPE) and critical hospital capacity and resources within [place] went into effect as of 07/31/2019 at 5:00PM. According to the [facility] Public Order: This action will remain in full force and effect until the State of Emergency declared by the Governor no longer exists or the Director of the [facility] rescinds or modifies this Order.. This [facility] order stated all non-essential or elective surgeries and procedures that utilize PPE should be delayed unless there is undue risk to the current or future health of a patient. After reviewing the aforementioned [facility] Public Order and the patients clinical case, I have determined that the scheduled procedure meets the criteria to go forward. Risk to Patient if Procedure Delayed: Risk of rapidly worsening to severe symptoms if delayed - patient developed a large infected necrotic sacral pressure sore with underlying bone involvement while recently intubated for pneumonia. Inpatient E&M: 97475 Init Hosp L2 - ICD-10 - L89.154, I96, M86.9, Z87.01, Z87.891
[2019-09-27] MEDS: Acetaminophen 325 MG Tablet 650 MG PO (20:51)
[2019-09-27] MEDS: Metoprolol(XL)Succ 50 MG Tablet PO (22:23)
[2019-09-27] MEDS: Atorvastatin Calcium 20 MG Tablet PO (22:24)
[2019-09-28 03:00] VITALS: BP 112/72; PULSE 84; RESP 16; TEMP 36.7; O2SAT 95
--- NOTE | 2019-09-28 07:42 | PN_ITS ---
Patient Problems: Active and Suspected Problems Sacral decubitus ulcer, stage IV (Acute) Subjective: Chief complaint: Follow-up after admission for infected stage IV decubitus sacral ulcer. Patient seen and examined. No acute events overnight. He has no complaints apart from lower back for which he took Tylenol. He denied fever or chills. His vital signs are stable. - Physical Exam Vitals/I&O's: Vital Signs Temp Pulse Resp BP Pulse Ox 98.1 F 84 16 112/72 95 09/28/19 03:00 09/28/19 03:00 09/28/19 03:00 09/28/19 03:00 09/28/19 03:00 Oxygen Delivery Method Room Air Weight: 200 lb Body Mass Index (BMI) 25.7 Intake and Output for Last 24 Hours 09/26/19 09/27/19 09/28/19 23:59 23:59 23:59 Intake Total 1490 / 1990 1280 / 1280 Output Total 200 / 200 Balance 1290 / 1790 1280 / 1280 General: Alert, Oriented x3, Cooperative, No apparent distress HEENT: Atraumatic, PERRLA, EOMI, Normocephalic Oral: Moist Mucosa, No Gingival or Mucosal Lesions/ Ulcerations Neck: Supple, No JVD, Negative Carotid Bruits, Trachea Midline, Thyroid Normal Size and Texture Lungs: Clear to auscultation, Normal air movement, No rhonchi, No wheeze Cardiovascular: Regular rate, Regular Rhythm, Normal S1, Normal S2, PMI Normal Abdomen: Bowel Sounds Present, Soft, Non Tender, Non-Distended, No Hepato-splenomegaly Extremities: No clubbing, No cyanosis, No edema Skin: No rashes, Ulcer/ Wound Lymphatic: No Cervical, Supraclavicular, or Inguinal Adenopathy Neurological: Cranial nerves II-XII grossly intact, Motor Exam 5/5 strength throughout Psych/Mental Status: Normal Affect, Appropriate, Alert and oriented to time, place, person, mood and affect Microbiology Past 72 Hours 09/27/19 12:10 Wound - Sacral Gram Stain - Final Laboratory Results 09/27/19 13:10: WBC 10.0, RBC 3.63 L, Hgb 10.8 L, Hct 33.6 L, MCV 92.6, MCH 29.8, MCHC 32.1, RDW Std Deviation 45.3 H, RDW Coeff of Thelma 13.4, Plt Count 273, MPV 10.1, Immature Gran % (Auto) 0.900, Neut % (Auto) 68.1, Lymph % (Auto) 20.2, Early % (Auto) 9.5, Eos % (Auto) 0.7, Baso % (Auto) 0.6, Absolute Neuts (auto) 6.8, Absolute Lymphs (auto) 2.02, Nucleated RBC % 0 09/27/19 13:10: PT 14.0, INR 1.1, APTT 25.8 09/27/19 13:10: Sodium 141, Potassium 3.8, Chloride 107, Carbon Dioxide 28.0, Anion Gap 6, BUN 13, Creatinine 0.93, Estim Creat Clear Calc 89.61, Est GFR (MDRD) Af Amer 104, Est GFR (MDRD) Non-Af 86, BUN/Creatinine Ratio 13.9, Glucose 98, Calcium 9.5, Total Bilirubin 0.50, AST 18, ALT 28, Alkaline Phosphatase 79, Total Protein 6.9, Albumin 2.9 L, Globulin 4.0, Albumin/Globulin Ratio 0.7 L 09/27/19 13:10: Lactic Acid 1.9 09/27/19 15:30: S.aureus Protein A PCR NEGATIVE, MRSA (PCR) Negative 09/27/19 18:10: Urine Color Yellow, Urine Clarity Clear, Urine pH 8.0, Ur Specific Freeman 1.010, Urine Protein Negative, Urine Glucose (UA) Normal, Urine Ketones Negative, Urine Occult Blood Negative, Urine Nitrite Negative, Urine Bilirubin Negative, Urine Urobilinogen Normal, Ur Leukocyte Esterase Negative, Urine RBC 0-5 SEEN, Urine WBC 0-5 SEEN, Ur Squamous Epith Cells 0 SEEN, Urine Bacteria 0 SEEN, Urine Mucus 0 SEEN Clinical Impression(s) from Imaging Studies Abdomen/Pelvis CT 09/27/19 13:36 IMPRESSION: Soft tissue ulceration with extension into the right and left gluteus maximum muscle as with air. I suspect involvement of the distal coccygeal bony element. Electronically Signed: Yuri Valadez, at 14:22 EDT , Service support , Chest X-Ray 09/27/19 15:26 IMPRESSION: Chronic changes right lung. Negative for major consolidation, atelectasis, cardiomegaly or pleural effusion. Electronically Signed: Andressa Mitchell MD at 16:51 EDT , Service support , Current Medications Acetaminophen (Tylenol) 650 mg PO Q6H PRN PRN PRN Reason: Pain Score 1-10/Temp > 100.7 F Last Admin: 09/27/19 20:51 Dose: 650 mg Documented by: Aspirin (Ecotrin) 81 mg PO DAILY@0800 [facility] Atorvastatin Calcium (Lipitor) 20 mg PO QHS [facility] Last Admin: 09/27/19 22:24 Dose: 20 mg Documented by: Enoxaparin Sodium (Lovenox) 40 mg SC DAILY [facility] Piperacillin Sod/Tazobactam (Sod 3.375 gm/ Sodium Chloride) 50 mls @ 12.5 mls/hr IV Q8 [facility] Last Admin: 09/28/19 05:53 Dose: 12.5 mls/hr Documented by: Sodium Chloride () 250 mls @ 15 mls/hr IV .[id number] PRN PRN Reason: Saline Flush Vancomycin HCl 1,500 mg/ (Sodium Chloride) 530 mls @ 250 mls/hr IV Q12H [facility] Last Infusion: 09/28/19 05:39 Dose: Infused Documented by: Vancomycin IV Pharmacy to Dose (1 ea/ Sodium Chloride) 500 mls @ 250 mls/hr IV X1 PRN; Protocol PRN Reason: Rx to Dose Lisinopril (Zestril) 10 mg PO DAILY [facility] Metoprolol Succinate (Toprol Xl (Beta Tre)) 50 mg PO QHS [facility] Last Admin: 09/27/19 22:23 Dose: 50 mg Documented by: Ondansetron HCl (Zofran) 4 mg IV Q8H PRN PRN PRN Reason: NAUSEA/VOMITING Oxycodone HCl (Oxyir) 5 mg PO Q4H PRN PRN PRN Reason: Pain Score 4-10/10 Pantoprazole Sodium (Protonix) 20 mg PO DAILY [facility] Senna/Docusate Sodium (Senokot-S, Kori-Colace) 2 tablet PO BID PRN PRN PRN Reason: Constipation Sodium Chloride () 10 - 40 ml IV UD PRN PRN Reason: SALINE FLUSH Zolpidem Tartrate (Ambien (Generic)) 5 mg PO QHS PRN PRN PRN Reason: INSOMNIA Medical Necessity - Tobacco Use Smoking Status: Former smoker Assessment/Plan All Active Problems Sacral decubitus ulcer, stage IV (Acute) This is a 69 years old male patient was sent to ED from the wound care center by Dr. Cannon for infected stage IV decubitus sacral ulcer and he is being admitted for treatment and he may need surgical intervention. #1 infected stage IV decubitus sacral ulcer: With involvement of bilateral gl uteal reese muscles and possible coccygeal bone involvement. He is on IV vancomycin and Zosyn. Blood and wound cultures are pending. Vital signs are stable, has been afebrile, no leukocytosis. Dr. Dooley evaluated the patient and plan to go for surgery on Monday. Preoperative chest x-ray showed no acute findings. Preoperative EKG revealed normal sinus rhythm, normal [place] interval, normal QRS, no acute ischemic changes. Pain is well controlled. Plan to continue same treatment, repeat CBC and BMP tomorrow morning, surgery on Monday. #2 recent history of pneumonia: Completed course of antibiotics several weeks ago, resolved. Respiratory status stable, remained pulse ox is maintained on room air. #3 anemia: Likely chronic because of the acute recent illness. Admission hemoglobin is 10.8 g/dL. No evidence of active bleeding. No indication for blood transfusion. Plan to repeat CBC tomorrow morning. #4 hypertension: Blood pressure stable, continue lisinopril and metoprolol as w ell as aspirin. #5 hyperlipidemia: Stable, continue statins. #6 benign prostatic hypertrophy: Patient told me that he does have BPH but he is not taking medications. He denied any significant urinary symptoms. #7 DVT prophylaxis: Subcu Lovenox. This note was generated with [employer] dictation software. It may contain incorrect words, spelling, and punctuation that were not noted in checking the note before signing. Inpatient E&M: 16433 Subs Hosp L2
[2019-09-28] MEDS: Aspirin E.C. 81 MG Tablet PO (08:07)
[2019-09-28 08:33] VITALS: BP 122/84; PULSE 82; RESP 18; TEMP 37.2; O2SAT 98
--- NOTE | 2019-09-28 10:19 | CASEMGMT ---
TANA MOTTA called patient in room for initial transition planning/care coordination assessment. TANA MOTTA introduced self and role at [facility]. Patient alert and oriented. Patient willing to participate in assessment and is able to answer all questions appropriately. Care providers, pharmacy, and demographics verified. Patient wishes to discharge home with resumption of HHC through [facility]. Patient states he has no further needs or concerns at this time. CM to follow for discharge planning needs that may arise. PCP: [facility] Specialists: Follows in wound center [facility]erred [facility]acy: [facility] Insurance: [facility] Prescription Benefit: yes, [employer] Living Will/HPOA: yes, Agnieszka Wise LNOK: Living Arrangements: Patient lives with in 2 story home with bed and bath on first floor. 2 step with railing to enter the home. Patient states that he is independent at home. Transportation: self/ DME/HHC: Patient states he has cane and walker at home. Patient states he is active with [facility]. TANA MOTTA attempted to call [facility], no answer. Patient states that the doctor mentioned a wound vac at discharge. CM will continue to monitor. Disposition Plan: Patient to discharge home with resumption of HHC, family support, and follow-up plans in place. Yancy PEREZ, RN, CM
[2019-09-28] MEDS: DAKIN'S SOL HALF STRENGTH (=0.25%) 1 APPLIC TOPICAL ×2 (10:57→22:23)
[2019-09-28] MEDS: Enoxaparin 40 MG/0.4 ML Syringe SC (10:58)
[2019-09-28] MEDS: Lisinopril 10 MG Tablet PO (10:58)
[2019-09-28] MEDS: Pantoprazole Sodium 20 MG Tablet PO (10:58)
[2019-09-28] MEDS: Acetaminophen 325 MG Tablet 650 MG PO ×2 (14:36→22:22)
[2019-09-28 15:05] VITALS: BP 99/67; PULSE 80; RESP 18; TEMP 36.9; O2SAT 98
[2019-09-28 22:19] VITALS: BP 143/79; PULSE 87; RESP 16; TEMP 36.6; O2SAT 95
[2019-09-28 22:22] VITALS: PULSE 87
[2019-09-28] MEDS: Metoprolol(XL)Succ 50 MG Tablet PO (22:22)
[2019-09-28] MEDS: Atorvastatin Calcium 20 MG Tablet PO (22:23)
[2019-09-29 03:22] VITALS: BP 129/66; PULSE 67; RESP 16; TEMP 36.6; O2SAT 95
[2019-09-29 06:29] LABS: Absolute Lymphocyte Count 1.56 X10^3/uL (0.83-4.51); Absolute Neutrophil Count 3.6 X10^3/uL (2.0-7.7); Basophil# 0.05 X10^3/uL; Basophil% 0.8 % (0-1); Eosinophil# 0.17 X10^3/uL; Eosinophils% 2.8 % (0-5); Hematocrit 30.6 % (40-54); Hemoglobin 9.8 g/dL (13.0-16.5); Lymphocyte # 1.56 X10^3/ul (4.0); Lymphocyte % 25.6 % (19-41); Mean Corpuscular Hgb 29.5 pg (27.0-32.0); Mean Corpuscular Volume 92.2 fL (80-94); Mean Platelet Vol. 10.5 fl (6.2-12.0); Monocyte# 0.71 X10^3/uL; Monocyte% 11.6 % (0-10); NRBC Flagged by Analyzer 0 % (0-5); Neutrophil # 3.58 X10^3/uL (2.7-7.7); Neutrophil % 58.7 % (47-70); Platelet Count 221 K/mm3 (150-450); RBC Distribution Width CV 13.5 % (11.6-14.6); RBC Distribution Width SD 44.4 fl (35.1-43.9); Red Blood Count 3.32 M/mm3 (4.6-6.2); White Blood Count 6.1 K/mm3 (4.4-11.0)
[2019-09-29 06:42] LABS: Anion Gap 8 (5-15); BUN 13 mg/dL (7-18); BUN/Creat Ratio 14.1 RATIO (10-20); Calcium,Total 8.5 mg/dL (8.5-10.1); Chloride 109 mmol/L (98-107); Creatinine, Serum 0.92 mg/dL (0.70-1.30); EST Glomerular Filtration Rate 87 mL/min (>60); Est Glom Filt Rate - Afr Amer 105 mL/min (>60); Estimated Creatinine Clearance 90.59 ml/min; Glucose 103 mg/dL (74-106); Potassium 3.8 mmol/L (3.5-5.1); Prealbumin 18.9 mg/dL (20.0-40.0); Sodium Level 141 mmol/L (136-145)
--- NOTE | 2019-09-29 07:38 | PN_ITS ---
Patient Problems: Active and Suspected Problems Sacral decubitus ulcer, stage IV (Acute) Subjective: Chief complaint: Follow-up after admission for infected stage IV decubitus sacral ulcer. Patient seen and examined. No acute events overnight. Apart from pain at the sacral region which is manageable, no other complaints. No fever chills. His vital signs are stable. - Physical Exam Vitals/I&O's: Vital Signs Temp Pulse Resp BP Pulse Ox 98 F 67 16 129/66 H 95 09/29/19 03:22 09/29/19 03:22 09/29/19 03:22 09/29/19 03:22 09/29/19 03:22 Oxygen Delivery Method Room Air Weight: 199 lb 15.983 oz Body Mass Index (BMI) 25.7 Intake and Output for Last 24 Hours 09/27/19 09/28/19 09/29/19 23:59 23:59 23:59 Intake Total 1490 / 1990 3510.00 / 3510.00 580 / 580 Output Total 200 / 200 Balance 1290 / 1790 3510.00 / 3510.00 580 / 580 General: Alert, Oriented x3, Cooperative, No apparent distress HEENT: Atraumatic, PERRLA, EOMI, Normocephalic Oral: Moist Mucosa, No Gingival or Mucosal Lesions/ Ulcerations Neck: Supple, No JVD, Negative Carotid Bruits, Trachea Midline, Thyroid Normal Size and Texture Lungs: Clear to auscultation, Normal air movement, No rhonchi, No wheeze, No rales Cardiovascular: Regular rate, Regular Rhythm, Normal S1, Normal S2, PMI Normal Abdomen: Bowel Sounds Present, Soft, Non Tender, Non-Distended, No Hepato- splenomegaly Extremities: No clubbing, No cyanosis, No edema Skin: No rashes, Ulcer/ Wound Lymphatic: No Cervical, Supraclavicular, or Inguinal Adenopathy Neurological: Cranial nerves II-XII grossly intact, Neuro grossly intact Psych/Mental Status: Normal Affect, Appropriate, Alert and oriented to time, place, person, mood and affect Microbiology Past 72 Hours 09/28/19 13:20 Mucosa - Nasopharyngeal Coronavirus COVID-19 PCR - Preliminary 09/27/19 18:10 Urine, Clean Catch Urine Culture - Preliminary Culture exhibits no growth. 09/27/19 12:10 Wound - Sacral Gram Stain - Final 09/27/19 12:10 Wound - Sacral Wound Culture - Preliminary No growth-Final to follow Laboratory Results 09/28/19 13:20: COVID-19 (FRANKY) Cancelled 09/29/19 05:55: WBC 6.1, RBC 3.32 L, Hgb 9.8 L, Hct 30.6 L, MCV 92.2, MCH 29.5, MCHC 32.0, RDW Std Deviation 44.4 H, RDW Coeff of Thelma 13.5, Plt Count 221, MPV 10.5, Immature Gran % (Auto) 0.500, Neut % (Auto) 58.7, Lymph % (Auto) 25.6, [place] % (Auto) 11.6 H, Eos % (Auto) 2.8, Baso % (Auto) 0.8, Absolute Neuts (auto) 3.6, Absolute Lymphs (auto) 1.56, Nucleated RBC % 0 09/29/19 05:55: Sodium 141, Potassium 3.8, Chloride 109 H, Carbon Dioxide 24.0, Anion Gap 8, BUN 13, Creatinine 0.92, Estim Creat Clear Calc 90.59, Est GFR (MDRD) Af Amer 105, Est GFR (MDRD) Non-Af 87, BUN/Creatinine Ratio 14.1, Glucose 103, Calcium 8.5, Prealbumin 18.9 L Current Medications Acetaminophen (Tylenol) 650 mg PO Q6H PRN PRN PRN Reason: Pain Score 1-10/Temp > 100.7 F Last Admin: 09/28/19 22:22 Dose: 650 mg Documented by: Aspirin (Ecotrin) 81 mg PO DAILY@0800 [facility] Last Admin: 09/28/19 08:07 Dose: 81 mg Documented by: Atorvastatin Calcium (Lipitor) 20 mg PO QHS [facility] Last Admin: 09/28/19 22:23 Dose: 20 mg Documented by: Enoxaparin Sodium (Lovenox) 40 mg SC DAILY [facility] Last Admin: 09/28/19 10:58 Dose: 40 mg Documented by: Piperacillin Sod/Tazobactam (Sod 3.375 gm/ Sodium Chloride) 50 mls @ 12.5 mls/hr IV Q8 [facility] Last Admin: 09/29/19 06:13 Dose: 12.5 mls/hr Documented by: Sodium Chloride () 250 mls @ 15 mls/hr IV .[id number] PRN PRN Reason: Saline Flush Vancomycin HCl 1,500 mg/ (Sodium Chloride) 530 mls @ 250 mls/hr IV Q12H [facility] Last Infusion: 09/29/19 05:56 Dose: Infused Documented by: Vancomycin IV Pharmacy to Dose (1 ea/ Sodium Chloride) 500 mls @ 250 mls/hr IV X1 PRN; Protocol PRN Reason: Rx to Dose Lisinopril (Zestril) 10 mg PO DAILY [facility] Last Admin: 09/28/19 10:58 Dose: 10 mg Documented by: Metoprolol Succinate (Toprol Xl (Beta Tre)) 50 mg PO QHS [facility] Last Admin: 09/28/19 22:22 Dose: 50 mg Documented by: Nutritional Formula (Yusuf - [place] Flavor[facility] Last Admin: 09/28/19 17:18 Dose: 1 packet Documented by: Ondansetron HCl (Zofran) 4 mg IV Q8H PRN PRN PRN Reason: NAUSEA/VOMITING Oxycodone HCl (Oxyir) 5 mg PO Q4H PRN PRN PRN Reason: Pain Score 4-10/10 Pantoprazole Sodium (Protonix) 20 mg PO DAILY [facility] Last Admin: 09/28/19 10:58 Dose: 20 mg Documented by: Senna/Docusate Sodium (Senokot-S, Kori-Colace) 2 tablet PO BID PRN PRN PRN Reason: Constipation Sodium Chloride () 10 - 40 ml IV UD PRN PRN Reason: SALINE FLUSH Sodium Hypochlorite (Dakins Solution 0.25% (1/2 Strength)) 1 applic TOPICAL BID [facility]; Protocol Last Admin: 09/28/19 22:23 Dose: 1 applicatio Documented by: Zolpidem Tartrate (Ambien (Generic)) 5 mg PO QHS PRN PRN PRN Reason: INSOMNIA Medical Necessity - Tobacco Use Smoking Status: Former smoker Assessment/Plan All Active Problems Sacral decubitus ulcer, stage IV (Acute) This is a 69 years old male patient was sent to ED from the wound care center by Dr. Cannon for infected stage IV decubitus sacral ulcer and he is being admitted for treatment and he may need surgical intervention. #1 infected stage IV decubitus sacral ulcer: With involvement of bilateral gluteal reese muscles and possible coccygeal bone involvement, osteomyelitis. Remained on IV vancomycin and Zosyn. Blood and wound cultures are pending. Urine culture showed no growth. Vital signs are stable, has been afebrile, no leukocytosis. Repeat routine blood work from today was remarkable for hemoglobin of 9.8 g/dL, otherwise normal. Dr. Dooley evaluated the patient and plan to go for surgery on Monday. Preoperative chest x-ray showed no acute findings. Preoperative EKG revealed normal sinus rhythm, normal [place] interval, normal QRS, no acute ischemic changes. Pain is well controlled. Plan for surgery tomorrow. #2 preoperative evaluation: 69 years old male patient with mild systemic disease, recent history of pneumonia. Preoperative chest x-ray and EKG reviewed and was unremarkable. Based on his past medical history, age, functional status and serum creatinine, his estimated risk for perioperative myocardial infarction or cardiac arrest is 0.16%. Based on ACS NSQIP surgical risk calculator, risk for serious complications as below average and predicted length of status 3.5 days after surgery. His risk for intraoperative and postoperative complications is moderate. No indication for any further work-up. We can proceed with surgery. #3 recent history of pneumonia: Completed course of antibiotics several weeks ago, resolved. Respiratory status stable, remained pulse ox is maintained on room air. #4 anemia: Likely chronic because of the recent pneumonia that required intubation and ICU stay. Admission hemoglobin is 10.8 g/dL, today's hemoglobin is 8.9 g/dL.. No evidence of active bleeding. No indication for blood transfusion. #5 hypertension: Blood pressure stable, continue lisinopril and metoprolol as well as aspirin. #6 hyperlipidemia: Stable, continue statins. #7 benign prostatic hypertrophy: Patient told me that he does have BPH but he is not taking medications. He denied any significant urinary symptoms. #8 DVT prophylaxis: Subcu Lovenox. This note was generated with [employer]arket dictation software. It may contain incorrect words, spelling, and punctuation that were not noted in checking the note before signing. Inpatient E&M: 67558 Subs Hosp L2
[2019-09-29] MEDS: Aspirin E.C. 81 MG Tablet PO (08:19)
[2019-09-29 09:22] VITALS: BP 122/76; PULSE 80; RESP 18; TEMP 37.2; O2SAT 98
[2019-09-29] MEDS: DAKIN'S SOL HALF STRENGTH (=0.25%) 1 APPLIC TOPICAL ×2 (09:38→22:00)
[2019-09-29] MEDS: Pantoprazole Sodium 20 MG Tablet PO (09:39)
[2019-09-29] MEDS: Lisinopril 10 MG Tablet PO (09:39)
[2019-09-29] MEDS: Enoxaparin 40 MG/0.4 ML Syringe SC (09:39)
[2019-09-29 15:00] LABS: Vancomycin, Trough Level 19.4 ug/mL (5.0-15.0)
--- NOTE | 2019-09-29 15:35 | PCM.RX.CS ---
Consult Pharmacy has been consulted to manage selected antiobiotic: Vancomycin Type of Consult: New start Labs: Sodium 141 mmol/L (136-145) 09/29/19 05:55 Potassium 3.8 mmol/L (3.5-5.1) 09/29/19 05:55 Chloride 109 mmol/L (98-107) H 09/29/19 05:55 Carbon Dioxide 24.0 mmol/L (21.0-32.0) 09/29/19 05:55 Anion Gap 8 (5-15) 09/29/19 05:55 BUN 13 mg/dL (7-18) 09/29/19 05:55 Creatinine 0.92 mg/dL (0.70-1.30) 09/29/19 05:55 Est GFR (MDRD) Af Amer 105 mL/min (>60) 09/29/19 05:55 Est GFR (MDRD) Non-Af 87 mL/min (>60) 09/29/19 05:55 BUN/Creatinine Ratio 14.1 RATIO (10-20) 09/29/19 05:55 Glucose 103 mg/dL (74-106) 09/29/19 05:55 Vancomycin Trough 19.4 ug/mL (5.0-15.0) H 09/29/19 14:20 Microbiology: Microbiology 09/28/19 13:20 Mucosa - Nasopharyngeal Coronavirus COVID-19 PCR - Final 09/27/19 13:35 Blood Culture (Wb) - Anticubital Right Blood Culture - Preliminary No growth in 48 hours. 09/27/19 13:10 Blood Culture (Wb) - Anticubital Left Blood Culture - Preliminary No growth in 48 hours. 09/27/19 18:10 Urine, Clean Catch Urine Culture - Preliminary Culture exhibits no growth. 09/27/19 12:10 Wound - Sacral Gram Stain - Final 09/27/19 12:10 Wound - Sacral Wound Culture - Preliminary No growth-Final to follow Weight used for dosin kg Goal Trough: 15-20 mcg/mL Pharmacy Plan for Drug Dosing: Trough 1 hour early, is within range. Continue and recheck in 4 day. Cx and PCR negative so far, may be able to stop before then. Pharmacy Service will continue to monitor and adjust dosing as required. Follow-Up Labs: Trough Vancomycin - 10/02 @ 1430
[2019-09-29 17:00] VITALS: BP 146/59; PULSE 84; RESP 18; TEMP 36.6; O2SAT 98
[2019-09-29 22:00] VITALS: BP 137/92; PULSE 84; RESP 16; TEMP 36.8; O2SAT 96
[2019-09-29] MEDS: Atorvastatin Calcium 20 MG Tablet PO (22:00)
[2019-09-29] MEDS: Metoprolol(XL)Succ 50 MG Tablet PO (22:00)
[2019-09-30] VITALS (13 sets, daily range): BP systolic 120–145; BP diastolic 69–100; PULSE 66–92; RESP 16–18; TEMP 36.2–37; O2SAT 93–99; BMI 25.7
[2019-09-30] MEDS: 0.9% Saline Lock 10 ML Syringe IV (02:30)
[2019-09-30 05:23] LABS: Hematocrit 31.8 % (40-54); Mean Corp Hgb Conc 31.4 g/dL (32-36); Mean Corpuscular Hgb 29.2 pg (27.0-32.0); Platelet Count 250 K/mm3 (150-450); RBC Distribution Width CV 13.6 % (11.6-14.6); RBC Distribution Width SD 45.9 fl (35.1-43.9); Red Blood Count 3.42 M/mm3 (4.6-6.2); White Blood Count 7.2 K/mm3 (4.4-11.0)
[2019-09-30 05:30] LABS: International Normalized Ratio 1.2; Prothrombin Time (Protime)PT. 14.6 SECONDS (11.7-14.9)
[2019-09-30 05:31] LABS: Partial Thromboplast Time 26.6 Seconds (24.1-36.2)
--- NOTE | 2019-09-30 08:21 | NURSING ---
wound photo: sacrum
--- NOTE | 2019-09-30 10:10 | PCM.PN.HOSP ---
Reason for Visit: Infected sacral decubitus ulcer Objective: Patient had prolonged hospital course in [facility] for about 3 weeks. Was intubated, 2 weeks in ICU and then 1 week on floor. Patient further said he was exposed to COVID-19 at work. Vitals/I&O's: Vital Signs Temp Pulse Resp BP Pulse Ox 98.1 F 71 16 124/80 H 98 09/30/19 07:42 09/30/19 07:42 09/30/19 07:42 09/30/19 07:42 09/30/19 07:42 Oxygen Delivery Method Room Air Weight: 199 lb 15.983 oz Body Mass Index (BMI) 25.7 Intake and Output for Last 24 Hours 09/28/19 09/29/19 09/30/19 23:59 23:59 23:59 Intake Total 3510.00 / 3510.00 2910 / 2910 630 / 630 Balance 3510.00 / 3510.00 2910 / 2910 630 / 630 General: Alert, Oriented x3, Cooperative HEENT: Atraumatic, PERRLA, EOMI, Normocephalic Neck: Supple, No JVD, Negative Carotid Bruits Lungs: Clear to auscultation, No rhonchi, No wheeze, No rales, Diminished Cardiovascular: Regular rate, Regular Rhythm, Normal S1, Normal S2, No murmurs Abdomen: Bowel Sounds Present, Soft, Non Tender, Non-Distended Extremities: No edema, Capillary Refill Less than 3 Seconds Skin: Ulcer/ Wound - Stage IV sacral decubitus pressure ulcer. It is a large, just anterior to anus. Musculoskeletal: No Tenderness to Palpation of Joints or Extremities, Arthritic Changes Neurological: Cranial nerves II-XII grossly intact, Neuro grossly intact Psych/Mental Status: Normal Affect, Appropriate Microbiology Past 72 Hours 09/27/19 12:10 Wound - Sacral Gram Stain - Final 09/27/19 12:10 Wound - Sacral Wound Culture - Preliminary Gram positive organism 09/28/19 13:20 Mucosa - Nasopharyngeal Coronavirus COVID-19 PCR - Final 09/27/19 13:35 Blood Culture (Wb) - Anticubital Right Blood Culture - Preliminary No growth in 48 hours. 09/27/19 13:10 Blood Culture (Wb) - Anticubital Left Blood Culture - Preliminary No growth in 48 hours. 09/27/19 18:10 Urine, Clean Catch Urine Culture - Preliminary Culture exhibits no growth. Laboratory Results 09/29/19 14:20: Vancomycin Trough 19.4 H 09/30/19 05:00: WBC 7.2, RBC 3.42 L, Hgb 10.0 L, Hct 31.8 L, MCV 93.0, MCH 29.2, MCHC 31.4 L, RDW Std Deviation 45.9 H, RDW Coeff of Thelma 13.6, Plt Count 250, MPV 10.0 09/30/19 05:00: PT 14.6, INR 1.2, APTT 26.6 Current Medications Acetaminophen (Tylenol) 650 mg PO Q6H PRN PRN PRN Reason: Pain Score 1-10/Temp > 100.7 F Last Admin: 09/28/19 22:22 Dose: 650 mg Documented by: Aspirin (Ecotrin) 81 mg PO DAILY@0800 [facility] Last Admin: 09/30/19 07:48 Dose: Not Given Documented by: Atorvastatin Calcium (Lipitor) 20 mg PO QHS [facility] Last Admin: 09/29/19 22:00 Dose: 20 mg Documented by: Enoxaparin Sodium (Lovenox) 40 mg SC DAILY [facility] Last Admin: 09/30/19 07:48 Dose: Not Given Documented by: Piperacillin Sod/Tazobactam (Sod 3.375 gm/ Sodium Chloride) 50 mls @ 12.5 mls/hr IV Q8 [facility] Last Infusion: 09/30/19 10:07 Dose: Infused Documented by: Sodium Chloride () 250 mls @ 15 mls/hr IV .[id number] PRN PRN Reason: Saline Flush Vancomycin HCl 1,500 mg/ (Sodium Chloride) 530 mls @ 250 mls/hr IV Q12H [facility] Last Infusion: 09/30/19 05:09 Dose: Infused Documented by: Vancomycin IV Pharmacy to Dose (1 ea/ Sodium Chloride) 500 mls @ 250 mls/hr IV X1 PRN; Protocol PRN Reason: Rx to Dose Lisinopril (Zestril) 10 mg PO DAILY [facility] Last Admin: 09/30/19 07:48 Dose: Not Given Documented by: Metoprolol Succinate (Toprol Xl (Beta Tre)) 50 mg PO QHS [facility] Last Admin: 09/29/19 22:00 Dose: 50 mg Documented by: Nutritional Formula (Yusuf - [place] Flavor) 1 packet PO BIDCM [facility] Last Admin: 09/30/19 07:48 Dose: Not Given Documented by: Ondansetron HCl (Zofran) 4 mg IV Q8H PRN PRN PRN Reason: NAUSEA/VOMITING Oxycodone HCl (Oxyir) 5 mg PO Q4H PRN PRN PRN Reason: Pain Score 4-10/10 Pantoprazole Sodium (Protonix) 20 mg PO DAILY [facility] Last Admin: 09/30/19 07:48 Dose: Not Given Documented by: Senna/Docusate Sodium (Senokot-S, Kori-Colace) 2 tablet PO BID PRN PRN PRN Reason: Constipation Sodium Chloride () 10 - 40 ml IV UD PRN PRN Reason: SALINE FLUSH Last Admin: 09/30/19 02:30 Dose: 10 ml Documented by: Sodium Hypochlorite (Dakins Solution 0.25% (1/2 Strength)) 1 applic TOPICAL BID [facility]; Protocol Last Admin: 09/29/19 22:00 Dose: 1 applicatio Documented by: Zolpidem Tartrate (Ambien (Generic)) 5 mg PO QHS PRN PRN PRN Reason: INSOMNIA STROKE Vital Signs/Narrative: Vital Signs Temp Pulse Resp BP Pulse Ox 09/30/19 07:42 98.1 F 71 16 124/80 H 98 Medical Necessity - Tobacco Use Smoking Status: Former smoker Assessment/Plan All Active Problems Osteomyelitis of pelvis (Acute) Skin necrosis (Acute) This is a 69 years old male patient was sent to ED from the wound care center by Dr. Cannon for infected stage IV decubitus sacral ulcer and was admitted. 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 Extension into the distal coccygeal bone. Clinically osteomyelitis. On IV vancomycin and Zosyn. COVID-19 PCR negative. No leukocytosis. Prelim Gram stain of wound culture shows gram-positive organism. Blood culture negative for 48 hours along with urine culture. Seen by plastic surgeon Dr. Dooley. Preoperative chest x-ray showed no acute findings. Preoperative EKG revealed normal sinus rhythm, normal ND interval, normal QRS, no acute ischemic changes. Plan for surgery today. #2 Perioperative surgical risk evaluation: The estimated risk for perioperative myocardial infarction or cardiac arrest is 0.16%. Based on ACS NSQIP surgical risk calculator, risk for serious complications as below average and predicted length of status 3.5 days after surgery. His risk for intraoperative and postoperative complications are moderate. Will follow in perioperative period. #3 Recent ecent history of pneumonia, seems COVID-19 pneumonia: [facility] COVID-19 PCR negative. Chest x-ray shows chronic changes in the right lung. #4 anemia: Likely chronic because of the recent pneumonia that required intubation and ICU stay. Admission hemoglobin is 10.8 g/dL, today hemoglobin 10.0. No evidence of active bleeding. Monitor CBC daily. #5 hypertension: Blood pressure stable, continue lisinopril and metoprolol as well as aspirin. #6 hyperlipidemia: Stable, continue statins. #7 benign prostatic hypertrophy: He denies irritative or obstructive lower urinary tract symptoms #8 DVT prophylaxis: Subcu Lovenox. Inpatient E&M: 31420 Subs Hosp L2
--- NOTE | 2019-09-30 10:24 | NURSING ---
attempted to call at home no answer.
--- NOTE | 2019-09-30 12:08 | NURSING ---
pt left for surgery
--- NOTE | 2019-09-30 12:30 | PRES_PTH ---
PATIENT: BESS EDMOND LOC: MS3 U#:[id number] AGE/SX: 69/M ROOM: AL308 RE09/27/[address]: Dr. Nato Martini MD : [id number] BED: 1 DIS: 10/02/2019 SPEC #: [id number] RECD: 10/01/19 08:04 STATUS: SWAPNA REQ #: [id number] REDD: 09/30/19 12:[address]: Solomon Dooley DEPT: SURGICAL PATHOLOGY RECD BY: Сергей Zarate ENTERED: 10/01/19 09:26 SP TYPE: PRESS SORE OTHR DR: MD Dr. 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 Skin and soft tissue of sacral region, excision: Ulceration with associated acute and chronic inflammation, granulation and fat necrosis. B. Sacral bone, biopsy: Chronic change. No evidence of acute osteomyelitis. Fragments of soft tissue with acute inflammation. AM:cleve 10/04/19 MICROSCOPIC DESCRIPTION Slides are reviewed. GROSS DESCRIPTION A - Received in fixative is one container labeled with the patient's name and designated sacral soft tissue. The specimen consists of a ring-shaped piece of ovoid skin with underlying tissue measuring 10 x 6 cm and up to 3.5 cm in thickness. Also present in the container are multiple pieces of adipose tissue measuring in aggregate 5.5 x 5.5 x 1.5 cm. The skin surface shows extensive area of ulceration. No mass lesion is identified. Center Medical Director sections are submitted in three cassettes. B - Received in fixative is one container labeled with the patient's name and designated sacral bone. The specimen consists of multiple fragments of bone that in aggregate measure 3 x 2.5 x 0.4 cm. The entire specimen is submitted in one cassette after decalcification. / SJ:cleve 10/01/19 TC:2 CPT: 94880 x2, 52236
--- NOTE | 2019-09-30 13:00 | CASEMGMT ---
Addendum entered by Yancy Max 10/01/19 14:56: SW updated pt that HCPOA/LW are not on file at [facility]. Pt states he is aware, states that he goes to the wound center and can just bring in copies to the wound center. Original Note: Social Work Note Per dredge mechanic questions, pt has completed HCPOA and LW and provided copies to [facility]. SW reviewed pt's chart, no copies found. SW attempted to update pt, pt off floor at this time. SW will update pt as time allows. Yancy Max DINNER COOK, EMBEDDED SOFTWARE TEST ENGINEER
--- NOTE | 2019-09-30 13:21 | CASEMGMT ---
[facility] notified of pt admission at this time and advised that we would let them now regarding discharge date, voices understanding. Pt is active with SN, PT through them at this time. Taz FAJARDO CM
[2019-09-30] MEDS: 0.9% Normal Saline 1,000 ML 100 ML IV ×2 (13:30→22:44)
--- NOTE | 2019-09-30 14:17 | OP.PCM_ITS ---
Report of Operation Date of Procedure: 09/30/19 Pre-Operative Diagnosis: 1. Infected necrotic sacral pressure sore, Stage IV. 2. Clinical osteomyelitis. 3. Recent intubation for pneumonia. 4. Former smoker. Post-Operative Diagnosis: Same. Surgery/Procedure Performed:: Excision infected necrotic sacral pressure sore, Stage IV, with partial ostectomy for osteomyelitis. Description of Surgical Findings:: The patient is a 69 year old M with recent history of pneumonia requiring hospitalization and intubation at [facility] on 08/23/19, developed a sacral pressure sore that has worsened over the last couple of weeks. Patient is ambulatory. He reports he was exposed to someone at work with COVID-19. He was recently discharged from a Rehab Unit. He went to the Wound Center for the first time with a foul smelling necrotic sacral pressure sore. The pressure sore was unroofed in the Wound Center by Dr. Cannon, and he was sent to the ED. Initial WBC was normal. CT Pelvis showed suspicion for osteomyelitis. He was started on Vancomycin and Zosyn and for more aggressive wound care. Patient does complain of pain in the sacral pressure sore area. He states he has no trouble with his bowel movements. I was asked to evaluate this patient for surgical options for treatment. Patient was informed of the risks and complications of the procedure including alternatives to surgery. These were discussed with the patient personally. Patient voices understanding and wishes to proceed. His COVID-19 PCR test was negative. Size of defect sacral area - 10 x 9 x 4.5 cm. transition lead: None Type of Anesthesia:: General Specimen's removed: 1. Infected necrotic sacral pressure sore soft tissue to Pathology and Microbiology. 2. Infected necrotic sacral pressure sore bone to Pathology and Microbiology. Drains: None. Estimated Blood Loss (mL): 250 ml. Description of Procedure: Patient was taken to OR in supine position and was placed under general anesthesia. He was placed in the prone position. SCD's were placed for DVT prophylaxis. Perioperative antibiotics were given intravenously. The sacral area was prepped and draped in the usual fashion. Using xylocaine with epinephrine, the sacral pressure sore was infiltrated. After waiting 5 minutes for the anesthetic to take effect, I excised the sacral pressure sore in a circular fashion through subcutaneous tissue and extensive necrotic muscle which extended down to the bone. A partial ostectomy was then performed using rongeurs. The bone looked grayish and was not very hard. Clinically the bone looked suspicious for osteomyelitis. Specimens from several areas of bone were taken. A rasp was used to smooth out the bony edges. After excising the extensive fat necrosis and muscle necrosis and abnormal bursal scar tissue, the remaining soft tissue showed good bleeding. Hemostasis was obtained with electrocautery. The size of the sacral pressure sore after excision was 10 x 9 x 4.5 cm. The wound was irrigated with saline. I placed bone wax on the sacral bone to help minimize bone bleeding. I then dressed the wound by placing Mepitel nonadherent dressing in the base of the wound followed by Kerlix gauze and Betadine and dry Kerlix gauze followed by ABD pads compression dressing. Half the soft tissue and half the bone was sent to Pathology for analysis to rule out carcinoma and to evaluate for osteomyelitis. Half the soft tissue and half the bone was sent to Microbiology for culture. A positive culture will necessitate antibiotic therapy. If pathology is positive for osteomyelitis, then shelter IV antibiotics would be needed through a PICC line. Patient tolerated the procedure well and was sent to PACU in satisfactory condition. Patient will be sent upstairs for continued postop care. The VAC will be placed tomorrow. Anticipate increased metabolic demands. Prealbumin was 18.9. Will encourage nutritional supplementation with protein to help the healing process. Grafts/Implants Used: None. - Complications None. - Admit VTE Documentation VTE Present on Admission: No VTE Mechan Device Prophylaxis: SCD's VTE Pharm Prophylaxis ordered?: Yes Surgery Charges CPT - 44585 ICD-10 - L89.154, I96, M86.9, Z87.01, Z87.891
[2019-09-30] MEDS: Atorvastatin Calcium 20 MG Tablet PO (22:34)
[2019-09-30] MEDS: Metoprolol(XL)Succ 50 MG Tablet PO (22:34)
[2019-10-01 00:28] VITALS: BP 134/83; PULSE 87; RESP 18; TEMP 37; O2SAT 95; BMI 25.7
[2019-10-01 04:33] VITALS: BP 137/74; PULSE 73; RESP 16; TEMP 36.7; O2SAT 97
[2019-10-01 04:35] VITALS: BMI 25.7
[2019-10-01 06:09] LABS: Hematocrit 29.4 % (40-54); Hemoglobin 9.4 g/dL (13.0-16.5); Mean Corpuscular Hgb 29.7 pg (27.0-32.0); Mean Corpuscular Volume 92.7 fL (80-94); Mean Platelet Vol. 10.5 fl (6.2-12.0); Platelet Count 236 K/mm3 (150-450); RBC Distribution Width CV 13.6 % (11.6-14.6); RBC Distribution Width SD 45.5 fl (35.1-43.9); Red Blood Count 3.17 M/mm3 (4.6-6.2); White Blood Count 10.9 K/mm3 (4.4-11.0)
[2019-10-01 06:27] LABS: Anion Gap 7 (5-15); BUN 9 mg/dL (7-18); Calcium,Total 8.5 mg/dL (8.5-10.1); Chloride 109 mmol/L (98-107); EST Glomerular Filtration Rate 89 mL/min (>60); Est Glom Filt Rate - Afr Amer 108 mL/min (>60); Glucose 91 mg/dL (74-106); Potassium 3.6 mmol/L (3.5-5.1); Sodium Level 141 mmol/L (136-145)
[2019-10-01 07:48] VITALS: BMI 25.7
[2019-10-01 07:57] VITALS: BP 139/80; PULSE 80; RESP 20; TEMP 36.8; O2SAT 96
[2019-10-01] MEDS: Enoxaparin 40 MG/0.4 ML Syringe SC (08:02)
[2019-10-01] MEDS: Pantoprazole Sodium 20 MG Tablet PO (08:03)
[2019-10-01] MEDS: Aspirin E.C. 81 MG Tablet PO (08:03)
[2019-10-01] MEDS: Lisinopril 10 MG Tablet PO (08:03)
--- NOTE | 2019-10-01 10:50 | PN_ITS ---
Reason for Visit: Decubitus ulcer sacrococcygeal region, stage IV with osteomyelitis Objective: General: Alert, Oriented x3, Cooperative HEENT: Atraumatic, PERRLA, EOMI, Normocephalic Neck: Supple, No JVD, Negative Carotid Bruits Lungs: Clear to auscultation, No rhonchi, No wheeze, No rales, air entry bilaterally diminished Cardiovascular: Regular rate, Regular Rhythm, Normal S1, Normal S2, No murmurs Abdomen: Bowel Sounds Present, Soft, Non Tender, Non-Distended Extremities: No edema, Capillary Refill Less than 3 Seconds Skin: Ulcer/ Wound - Stage IV sacral decubitus pressure ulcer, just anterior to anus present on admission. Had operative debridement and ostectomy. Surgical dressing dry with Betadine stain. Musculoskeletal: No Tenderness to Palpation of Joints or Extremities, Arthritic Changes Neurological: Cranial nerves II-XII grossly intact, Neuro grossly intact Psych/Mental Status: Normal Affect, Appropriate Vitals/I&O's: Vital Signs Temp Pulse Resp BP Pulse Ox 98.3 F 80 20 H 139/80 H 96 10/01/19 07:57 10/01/19 07:57 10/01/19 07:57 10/01/19 07:57 10/01/19 07:57 Oxygen Flow Rate (L/min) 2 Oxygen Delivery Method Room Air Weight: 199 lb 15.983 oz Body Mass Index (BMI) 25.7 Intake and Output for Last 24 Hours 09/29/19 09/30/19 10/01/19 23:59 23:59 23:59 Intake Total 2910 / 2910 2578.33 / 2578.33 1351.58 / 1351.58 Output Total 500 / 500 500 / 500 Balance 2910 / 2910 2078.33 / 2078.33 851.58 / 851.58 Microbiology Past 72 Hours 09/27/19 12:10 Wound - Sacral Gram Stain - Final 09/27/19 12:10 Wound - Sacral Wound Culture - Final Granulicatella adiacens 09/27/19 18:10 Urine, Clean Catch Urine Culture - Final Culture exhibits no growth. 09/28/19 13:20 Mucosa - Nasopharyngeal Coronavirus COVID-19 PCR - Final 09/27/19 13:35 Blood Culture (Wb) - Anticubital Right Blood Culture - Preliminary No growth in 48 hours. 09/27/19 13:10 Blood Culture (Wb) - Anticubital Left Blood Culture - Preliminary No growth in 48 hours. Laboratory Results 10/01/19 05:28: WBC 10.9, RBC 3.17 L, Hgb 9.4 L, Hct 29.4 L, MCV 92.7, MCH 29.7, MCHC 32.0, RDW Std Deviation 45.5 H, RDW Coeff of Thelma 13.6, Plt Count 236, MPV 10.5 10/01/19 05:28: Sodium 141, Potassium 3.6, Chloride 109 H, Carbon Dioxide 25.0, Anion Gap 7, BUN 9, Creatinine 0.90, Estim Creat Clear Calc 92.60, Est GFR (MDRD) Af Amer 108, Est GFR (MDRD) Non-Af 89, BUN/Creatinine Ratio 10.0, Glucose 91, Calcium 8.5 Current Medications Acetaminophen (Tylenol) 650 mg PO Q6H PRN PRN PRN Reason: Pain Score 1-10/Temp > 100.7 F Last Admin: 09/28/19 22:22 Dose: 650 mg Documented by: Aspirin (Ecotrin) 81 mg PO DAILY@0800 [facility] Last Admin: 10/01/19 08:03 Dose: 81 mg Documented by: Atorvastatin Calcium (Lipitor) 20 mg PO QHS [facility] Last Admin: 09/30/19 22:34 Dose: 20 mg Documented by: Diazepam (Valium) 5 mg PO 4X/DAY PRN PRN PRN Reason: SPASMS Enoxaparin Sodium (Lovenox) 40 mg SC DAILY [facility] Last Admin: 10/01/19 08:02 Dose: 40 mg Documented by: Hydromorphone HCl (Dilaudid Inj) 1 mg IV Q3H PRN PRN PRN Reason: Pain Score 6-10/10 Piperacillin Sod/Tazobactam (Sod 3.375 gm/ Sodium Chloride) 50 mls @ 12.5 mls/hr IV Q8 [facility] Last Infusion: 10/01/19 10:31 Dose: Infused Documented by: Sodium Chloride () 250 mls @ 15 mls/hr IV .[id number] PRN PRN Reason: Saline Flush Last Infusion: 10/01/19 06:30 Dose: 0 mls/hr Documented by: Vancomycin HCl 1,500 mg/ (Sodium Chloride) 530 mls @ 250 mls/hr IV Q12H [facility] Last Infusion: 10/01/19 06:00 Dose: Infused Documented by: Vancomycin IV Pharmacy to Dose (1 ea/ Sodium Chloride) 500 mls @ 250 mls/hr IV X1 PRN; Protocol PRN Reason: Rx to Dose Sodium Chloride () 1,000 mls @ 100 mls/hr IV .Q10H [facility] Last Infusion: 10/01/19 06:00 Dose: 100 mls/hr Documented by: Lisinopril (Zestril) 10 mg PO DAILY [facility] Last Admin: 10/01/19 08:03 Dose: 10 mg Documented by: Metoprolol Succinate (Toprol Xl (Beta Tre)) 50 mg PO QHS [facility] Last Admin: 09/30/19 22:34 Dose: 50 mg Documented by: Nutritional Formula (Yusuf - [place] Flavor) [facility] Last Admin: 10/01/19 08:01 Dose: Not Given Documented by: Ondansetron HCl (Zofran) 4 mg IV Q8H PRN PRN PRN Reason: NAUSEA/VOMITING Oxycodone HCl (Oxyir) 5 mg PO Q4H PRN PRN PRN Reason: Pain Score 4-10/10 Pantoprazole Sodium (Protonix) 20 mg PO DAILY [facility] Last Admin: 10/01/19 08:03 Dose: 20 mg Documented by: Senna/Docusate Sodium (Senokot-S, Kori-Colace) 2 tablet PO BID PRN PRN PRN Reason: Constipation Sodium Chloride () 10 - 40 ml IV UD PRN PRN Reason: SALINE FLUSH Last Admin: 09/30/19 02:30 Dose: 10 ml Documented by: Sodium Hypochlorite (Dakins Solution 0.25% (1/2 Strength)) 1 applic TOPICAL BID [facility]; Protocol Last Admin: 10/01/19 09:44 Dose: Not Given Documented by: Zolpidem Tartrate (Ambien (Generic)) 5 mg PO QHS PRN PRN PRN Reason: INSOMNIA STROKE Vital Signs/Narrative: Vital Signs Temp Pulse Resp BP Pulse Ox 10/01/19 07:57 98.3 F 80 20 H 139/80 H 96 Medical Necessity - Tobacco Use Smoking Status: Former smoker Assessment/Plan All Active Problems Osteomyelitis of pelvis (Acute) Skin necrosis (Acute) This is a 69 years old male patient was sent to ED from the wound care center by Dr. Cannon for infected stage IV decubitus sacral ulcer and was admitted. 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 Extension into the distal coccygeal bone. Clinically osteomyelitis. On IV vancomycin and Zosyn. COVID-19 PCR negative. No leukocytosis. Prelim Gram stain of wound culture shows gram-positive organism. Blood culture negative for 48 hours along with urine culture. Seen by plastic surgeon Dr. Dooley. Preoperative chest x-ray showed no acute findings. Preoperative EKG revealed normal sinus rhythm, normal WI interval, normal QRS, no acute ischemic changes. 09/30: Patient had surgery on 09/29. Patient had PICC line on left arm. Discussed with ID. Operative tissue culture and bone culture are still pending therefore will need to follow culture and select antibiotic for discharge based on culture. Patient will need prolonged IV antibiotic about 6 weeks for osteomyelitis. Patient being seen by wound nurse for wound VAC #2 Perioperative surgical risk evaluation: The estimated risk for perioperative myocardial infarction or cardiac arrest is 0.16%. Based on ACS NSQIP surgical risk calculator, risk for serious complications as below average and predicted length of status 3.5 days after surgery. His risk for intraoperative and postoperative complications are moderate. #3 Recent ecent history of pneumonia, seems COVID-19 pneumonia: Patient had an [facility]. COVID-19 PCR negative. Chest x-ray shows chronic changes in the right lung. #4 anemia: Likely chronic because of the recent pneumonia that required intubation and ICU stay. Admission hemoglobin is 10.8 g/dL, today hemoglobin 10.0. No evidence of active bleeding. Monitor CBC daily. #5 hypertension: Blood pressure stable, continue lisinopril and metoprolol as well as aspirin. #6 hyperlipidemia: Stable, continue statins. #7 benign prostatic hypertrophy: He denies irritative or obstructive lower urinary tract symptoms #8 DVT prophylaxis: Subcu Lovenox. Inpatient E&M: 48366 Subs Hosp L2
--- NOTE | 2019-10-01 11:29 | NURSING ---
wound photo: sacrum
[2019-10-01] MEDS: 0.9% Normal Saline 1,000 ML 100 ML IV (13:16)
[2019-10-01 13:22] VITALS: BMI 25.7
--- NOTE | 2019-10-01 13:26 | CASEMGMT ---
TANA MOTTA updated that patient will need IV ATBs at discharge. TANA MOTTA discussed discharge planning with patient regarding IV ATBs, wound vac, and HHC. TANA MOTTA provided list of infusion companies to patient and he would like [facility]. Patient is established with [facility] for SN and PT. TANA MOTTA sent referral to [facility] and updated HHC. TANA MOTTA inquired if patient had his prescription coverage card with him, he stated no. TANA MOTTA received permission to call and obtain RX coverage [facility] RX: ID: [id number] Plan: [id number] RxBIN: [id number] RX PCN: [id number] RxGroup: [id number]
[2019-10-01 15:30] VITALS: BP 109/55; PULSE 75; RESP 16; TEMP 36.8; O2SAT 98
[2019-10-01 15:39] VITALS: BMI 25.7
--- NOTE | 2019-10-01 18:13 | PN.SURG_ITS ---
Subjective: Postop #1 VAC applied today. Patient is resting comfortably. - Physical Exam Vitals/I&O's: Vital Signs Temp Pulse Resp BP Pulse Ox 98.2 F 75 16 109/55 L 98 10/01/19 15:30 10/01/19 15:30 10/01/19 15:30 10/01/19 15:30 10/01/19 15:30 Oxygen Flow Rate (L/min) 2 Oxygen Delivery Method Room Air Weight: 199 lb 15.983 oz Body Mass Index (BMI) 25.7 Intake and Output for Last 24 Hours 09/29/19 09/30/19 10/01/19 23:59 23:59 23:59 Intake Total 2910 / 2910 2578.33 / 2578.33 2103.25 / 2103.25 Output Total 500 / 500 975 / 975 Balance 2910 / 2910 2078.33 / 2078.33 1128.25 / 1128.25 General: Alert, Oriented x3 HEENT: PERRLA, EOMI Oral: Moist Mucosa Neck: Supple Abdomen: Soft, Non-Distended Skin: Ulcer/ Wound - sacral wound is stable. No active bleeding seen. No evidence of further necrosis. Neurological: Cranial nerves II-XII grossly intact Psych/Mental Status: Normal Affect, Appropriate Microbiology Past 72 Hours 09/30/19 14:28 Bone - Other Gram Stain - Final 09/30/19 14:26 Tissue - Sacral Gram Stain - Final 09/27/19 12:10 Wound - Sacral Gram Stain - Final 09/27/19 12:10 Wound - Sacral Wound Culture - Final Granulicatella adiacens 09/27/19 18:10 Urine, Clean Catch Urine Culture - Final Culture exhibits no growth. 09/28/19 13:20 Mucosa - Nasopharyngeal Coronavirus COVID-19 PCR - Final 09/27/19 13:35 Blood Culture (Wb) - Anticubital Right Blood Culture - Preliminary No growth in 48 hours. 09/27/19 13:10 Blood Culture (Wb) - Anticubital Left Blood Culture - Preliminary No growth in 48 hours. Pathology - pending Laboratory Results 10/01/19 05:28: WBC 10.9, RBC 3.17 L, Hgb 9.4 L, Hct 29.4 L, MCV 92.7, MCH 29.7, MCHC 32.0, RDW Std Deviation 45.5 H, RDW Coeff of Thelma 13.6, Plt Count 236, MPV 10.5 10/01/19 05:28: Sodium 141, Potassium 3.6, Chloride 109 H, Carbon Dioxide 25.0, Anion Gap 7, BUN 9, Creatinine 0.90, Estim Creat Clear Calc 92.60, Est GFR (MDRD) Af Amer 108, Est GFR (MDRD) Non-Af 89, BUN/Creatinine Ratio 10.0, Glucose 91, Calcium 8.5 Current Medications Acetaminophen (Tylenol) 650 mg PO Q6H PRN PRN PRN Reason: Pain Score 1-10/Temp > 100.7 F Last Admin: 09/28/19 22:22 Dose: 650 mg Documented by: Aspirin (Ecotrin) 81 mg PO DAILY@0800 [facility] Last Admin: 10/01/19 08:03 Dose: 81 mg Documented by: Atorvastatin Calcium (Lipitor) 20 mg PO QHS [facility] Last Admin: 09/30/19 22:34 Dose: 20 mg Documented by: Diazepam (Valium) 5 mg PO 4X/DAY PRN PRN PRN Reason: SPASMS Enoxaparin Sodium (Lovenox) 40 mg SC DAILY [facility] Last Admin: 10/01/19 08:02 Dose: 40 mg Documented by: Hydromorphone HCl (Dilaudid Inj) 1 mg IV Q3H PRN PRN PRN Reason: Pain Score 6-10/10 Piperacillin Sod/Tazobactam (Sod 3.375 gm/ Sodium Chloride) 50 mls @ 12.5 mls/hr IV Q8 [facility] Last Admin: 10/01/19 13:16 Dose: 12.5 mls/hr Documented by: Sodium Chloride () 250 mls @ 15 mls/hr IV .[id number] PRN PRN Reason: Saline Flush Last Infusion: 10/01/19 06:30 Dose: 0 mls/hr Documented by: Vancomycin HCl 1,500 mg/ (Sodium Chloride) 530 mls @ 250 mls/hr IV Q12H [facility] Last Admin: 10/01/19 15:27 Dose: 250 mls/hr Documented by: Vancomycin IV Pharmacy to Dose (1 ea/ Sodium Chloride) 500 mls @ 250 mls/hr IV X1 PRN; Protocol PRN Reason: Rx to Dose Sodium Chloride () 1,000 mls @ 100 mls/hr IV .Q10H [facility] Last Infusion: 10/01/19 15:28 Dose: 0 mls/hr Documented by: Lisinopril (Zestril) 10 mg PO DAILY [facility] Last Admin: 10/01/19 08:03 Dose: 10 mg Documented by: Metoprolol Succinate (Toprol Xl (Beta Tre)) 50 mg PO QHS [facility] Last Admin: 09/30/19 22:34 Dose: 50 mg Documented by: Nutritional Formula (Yusuf - [place] Flavor) 1 packet [facility] Last Admin: 10/01/19 15:28 Dose: Not Given Documented by: Ondansetron HCl (Zofran) 4 mg IV Q8H PRN PRN PRN Reason: NAUSEA/VOMITING Oxycodone HCl (Oxyir) 5 mg PO Q4H PRN PRN PRN Reason: Pain Score 4-10/10 Pantoprazole Sodium (Protonix) 20 mg PO DAILY [facility] Last Admin: 10/01/19 08:03 Dose: 20 mg Documented by: Senna/Docusate Sodium (Senokot-S, Kori-Colace) 2 tablet PO BID PRN PRN PRN Reason: Constipation Sodium Chloride () 10 - 40 ml IV UD PRN PRN Reason: SALINE FLUSH Last Admin: 09/30/19 02:30 Dose: 10 ml Documented by: Sodium Hypochlorite (Dakins Solution 0.25% (1/2 Strength)) 1 applic TOPICAL BID [facility]; Protocol Last Admin: 10/01/19 09:44 Dose: Not Given Documented by: Zolpidem Tartrate (Ambien (Generic)) 5 mg PO QHS PRN PRN PRN Reason: INSOMNIA Medical Necessity - Tobacco Use Smoking Status: Former smoker Assessment/Plan All Active Problems Osteomyelitis of pelvis (Acute) Skin necrosis (Acute) 1. Infected necrotic sacral pressure sore, Stage IV. 2. Clinical osteomyelitis. 3. Recent intubation for pneumonia. 4. Former smoker. Continue Vancomycin and Zosyn antibiotics. Culture thus far shows Granulicatella adiacens. Pathology is pending. VAC applied today without difficulty. To be changed three times per week at 150 mmHg continuous suction. Anticipate increased metabolic demands from the wound. Prealbumin was 18.9. Will encourage nutritional supplementation with protein to help the healing process. Depending on the culture results, the patient may need IV antibiotics. Followup at Wound Center after discharge.
[2019-10-01 20:06] VITALS: BP 119/62; PULSE 81; RESP 16; TEMP 36.9; O2SAT 95
[2019-10-01 22:18] VITALS: PULSE 74
[2019-10-01] MEDS: Atorvastatin Calcium 20 MG Tablet PO (22:18)
[2019-10-01] MEDS: Metoprolol(XL)Succ 50 MG Tablet PO (22:18)
[2019-10-01] MEDS: Acetaminophen 325 MG Tablet 650 MG PO (22:18)
[2019-10-02] MEDS: 0.9% Normal Saline 1,000 ML 100 ML IV (01:36)
[2019-10-02 01:55] VITALS: BP 110/63; PULSE 71; RESP 20; TEMP 37.1; O2SAT 93
[2019-10-02 06:06] LABS: Absolute Lymphocyte Count 1.78 X10^3/uL (0.83-4.51); Absolute Neutrophil Count 5.5 X10^3/uL (2.0-7.7); Basophil# 0.06 X10^3/uL; Basophil% 0.7 % (0-1); Eosinophil# 0.16 X10^3/uL; Eosinophils% 1.9 % (0-5); Hematocrit 27.5 % (40-54); Hemoglobin 8.7 g/dL (13.0-16.5); Lymphocyte # 1.78 X10^3/ul (4.0); Lymphocyte % 21.6 % (19-41); Mean Corp Hgb Conc 31.6 g/dL (32-36); Mean Corpuscular Hgb 29.6 pg (27.0-32.0); Mean Corpuscular Volume 93.5 fL (80-94); Mean Platelet Vol. 10.1 fl (6.2-12.0); Monocyte# 0.74 X10^3/uL; NRBC Flagged by Analyzer 0 % (0-5); Neutrophil # 5.46 X10^3/uL (2.7-7.7); Neutrophil % 66.4 % (47-70); Platelet Count 210 K/mm3 (150-450); RBC Distribution Width CV 14.1 % (11.6-14.6); RBC Distribution Width SD 46.7 fl (35.1-43.9); Red Blood Count 2.94 M/mm3 (4.6-6.2); White Blood Count 8.2 K/mm3 (4.4-11.0)
[2019-10-02 06:24] LABS: Anion Gap 7 (5-15); BUN 12 mg/dL (7-18); BUN/Creat Ratio 11.2 RATIO (10-20); Chloride 114 mmol/L (98-107); Creatinine, Serum 1.07 mg/dL (0.70-1.30); EST Glomerular Filtration Rate 73 mL/min (>60); Est Glom Filt Rate - Afr Amer 89 mL/min (>60); Estimated Creatinine Clearance 77.89 ml/min; Glucose 81 mg/dL (74-106); Potassium 3.7 mmol/L (3.5-5.1); Sodium Level 146 mmol/L (136-145)
--- NOTE | 2019-10-02 09:00 | CASEMGMT ---
TANA MOTTA received message that [facility] will not be able to see patient today if discharged on q 8 hour antibiotic. [facility] would be able to do start of care for 10/03/19 at 1400. TANA MOTTA updated patient regarding C. Patient voiced understanding. TANA MOTTA awaiting script for ATB from ID.
[2019-10-02 10:02] VITALS: BP 127/72; PULSE 67; RESP 16; TEMP 36.8; O2SAT 97
[2019-10-02] MEDS: Pantoprazole Sodium 20 MG Tablet PO (10:27)
[2019-10-02] MEDS: Enoxaparin 40 MG/0.4 ML Syringe SC (10:27)
[2019-10-02] MEDS: Lisinopril 10 MG Tablet PO (10:27)
[2019-10-02] MEDS: Aspirin E.C. 81 MG Tablet PO (10:27)
--- NOTE | 2019-10-02 15:00 | CASEMGMT ---
TANA MOTTA updated by ID with script for IV ATB for Invanz once daily. TANA MOTTA updated the hospitalist and patient to discharge today. TANA MOTTA updated the patient. TANA MOTTA sent script to [facility] and [facility] and call both regarding Invanz and planned discharge for today. CSI to call patient with ATB cost.
--- NOTE | 2019-10-02 15:04 | DCINST_ITS ---
You will use the following diet at home:: Cardiac Your food should be the consistency of: Regular Your liquids should be the consistency of: Regular/Thin Discharge Activity: May Not Drive Call your doctor if you observe: Fever of 101 or Higher, Numbness or Tingling, Change in Color, Inability to have a bowel movement, Shortness of breath, Dizziness, Fainting spells, Swelling in the ankles, Increased palpitations (irregular heartbeat), Calf discomfort, Uncontrolled pain Allergies/Adverse Reactions: Allergies meloxicam Allergy (Verified 09/27/19 11:52) Swelling Medications to take at Discharge Metoprolol(XL)Succ [Toprol Xl (Beta Tre)] 50 mg PO QHS 12/12/13 Multivitamins,Therapeutic [Multivitamin] 1 tab PO DAILY 12/12/13 Aspirin E.C. [Ecotrin] 81 mg PO DAILY@0800 09/27/19 Lisinopril [Zestril] 10 mg PO DAILY 09/27/19 Pantoprazole Sodium [Protonix] 20 mg PO DAILY 09/27/19 Simvastatin 40 mg PO QHS 09/27/19 Ertapenem Sodium [Ertapenem] 1 gm IV DAILY 40 Days #40 vial 10/02/19 The following prescriptions were given: Ertapenem Sodium [Ertapenem] 1 gm IV DAILY 40 Days #40 vial Prescription Printed Primary Care Physician: Lucy Alvarado MD [Primary Care Provider] - Please follow up with your Primary Care Physician in: in 2 weeks Test Results: Test results from this visit will be discussed in further detail at your follow- up appointment, if applicable. Please Follow Up With: Solomon Dooley MD When: in 1-2 weeks. weekly visit to wound center Please Follow Up With: Lyndon Agee MD When: as needed in 2-3 weeks
--- NOTE | 2019-10-02 15:06 | DS.PCM_ITS ---
Discharge Date and Diagnosis Date of Admission: 09/27/19 Date of Discharge: 10/02/19 - Primary Discharge Diagnosis Acute Problems: Stage IV infected decubitus ulcer in the sacrococcygeal region, complicated with acute osteomyelitis - Secondary Discharge Diagnosis Chronic Problems: Chronic Problems Cellulitis and abscess of buttock (Chronic) Former smoker (Chronic) History of pneumonia (Chronic) Sacral decubitus ulcer, stage IV (Chronic) Benign prostatic hyperplasia (Chronic) Hypertension (Chronic) Hyperlipidemia (Chronic) Hospital Course and Treatment Consultations 09/27/19 15:18 Consult: Onc/Wound/assistant men's soccer coach Routine Comment: Summary of Care Provided: This is a 69 years old male patient was sent to ED from the wound care center by Dr. Cannon for infected stage IV decubitus sacral ulcer and was admitted. 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 Extension into the distal coccygeal bone. Clinically osteomyelitis. On IV vancomycin and Zosyn during the hospital stay. COVID-19 PCR negative. No leukocytosis. Blood culture negative for 48 hours along with urine culture. Preliminary Gram stain of tissue culture from 09/29 shows 2+ gram-positive cocci and first wound culture on 09/26 shows anaerobic c occi and gram-negative errol. Full culture pending. Patient has PICC line on left arm. Seen by ID and advised Invanz 1 g daily. Wound VAC was inserted at home wound VAC approved. [] Preoperative chest x-ray showed no acute findings. Preoperative EKG revealed normal sinus rhythm, normal OH interval, normal QRS, no acute ischemic changes. #2 Perioperative surgical risk evaluation: The estimated risk for perioperative myocardial infarction or cardiac arrest is 0.16%. Based on ACS NSQIP surgical risk calculator, risk for serious complications as below average and predicted length of status 3.5 days after surgery. His risk for intraoperative and postoperative complications are moderate. Patient did not had significant/major perioperative complication. #3 Recent history of pneumonia, seems COVID-19 pneumonia: Patient had an [facility] hospital. COVID-19 PCR negative. Chest x-ray shows chronic changes in the right lung. #4 anemia: Likely chronic because of the recent pneumonia that required intubation and ICU stay. Admission hemoglobin is 10.8 g/dL, today hemoglobin 10.0. No evidence of active bleeding. Monitor CBC daily. #5 hypertension: Blood pressure stable, continue lisinopril and metoprolol as well as aspirin. #6 hyperlipidemia: Stable, continue statins. #7 benign prostatic hypertrophy: He denies irritative or obstructive lower urinary tract symptoms #8 DVT prophylaxis: Subcu Lovenox. Discharge medication reconciliation done. Discharge follow-up instructions completed. Discharge process discussed with the patient and all questions were answered to patient's satisfaction. Total time spent, exact 35 minutes on discharge meds reconciliation, examination, coordination of care with nurses and ancillary staff, review of imaging and blood test and discussion with the patient on follow-up instructions Subjective: No fever or chills. Hemodynamically stable. Objective: General: Alert, Oriented x3, Cooperative HEENT: Atraumatic, PERRLA, EOMI, Normocephalic Neck: Supple, No JVD, Negative Carotid Bruits Lungs: Clear to auscultation, No rhonchi, No wheeze, No rales, air entry bilaterally diminished Cardiovascular: Regular rate, Regular Rhythm, Normal S1, Normal S2, No murmurs Abdomen: Bowel Sounds Present, Soft, Non Tender, Non-Distended Extremities: No edema, Capillary Refill Less than 3 Seconds Skin: Ulcer/ Wound - Stage IV sacral decubitus pressure ulcer, just anterior to anus present on admission. Had operative debridement and ostectomy. Wound VAC placed Musculoskeletal: No Tenderness to Palpation of Joints or Extremities, Arthritic Changes Neurological: Cranial nerves II-XII grossly intact, Neuro grossly intact Psych/Mental Status: Normal Affect, Appropriate - Physical Exam Vitals/I&O's: Vital Signs Temp Pulse Resp BP Pulse Ox 98.2 F 67 16 127/72 H 97 10/02/19 10:02 10/02/19 10:02 10/02/19 10:02 10/02/19 10:10/02/19 10:02 Oxygen Flow Rate (L/min) 2 Oxygen Delivery Method Room Air Weight: 199 lb 15.983 oz Body Mass Index (BMI) 25.7 Intake and Output for Last 24 Hours 09/30/19 10/01/19 10/02/19 23:59 23:59 23:59 Intake Total 2578.33 / 2578.33 2683.25 / 3383.25 3742.5 / 3742.5 Output Total 500 / 500 1625 / 2375 3325 / 3325 Balance 8.33 / 2077.33 1058.25 / 1008.25 417.5 / 417.5 Microbiology Past 72 Hours 09/27/19 13:35 Blood Culture (Wb) - Anticubital Right Blood Culture - Final No growth in 5 days. 09/27/19 13:10 Blood Culture (Wb) - Anticubital Left Blood Culture - Final No growth in 5 days. 09/27/19 12:10 Wound - Sacral Gram Stain - Final 09/27/19 12:10 Wound - Sacral Wound Culture - Final Granulicatella adiacens 09/27/19 12:10 Wound - Sacral Anaerobic Culture - Preliminary Anaerobic cocci Gram negative errol 09/30/19 14:26 Tissue - Sacral Gram Stain - Final 09/30/19 14:26 Tissue - Sacral Wound Culture - Preliminary No growth-Final to follow 09/30/19 14:28 Bone - Other Gram Stain - Final 09/27/19 18:10 Urine, Clean Catch Urine Culture - Final Culture exhibits no growth. 09/28/19 13:20 Mucosa - Nasopharyngeal Coronavirus COVID-19 PCR - Final Laboratory Results 10/02/19 05:46: WBC 8.2, RBC 2.94 L, Hgb 8.7 L, Hct 27.5 L, MCV 93.5, MCH 29.6, MCHC 31.6 L, RDW Std Deviation 46.7 H, RDW Coeff of Thelma 14.1, Plt Count 210, MPV 10.1, Immature Gran % (Auto) 0.400, Neut % (Auto) 66.4, Lymph % (Auto) 21.6, Preston % (Auto) 9.0, Eos % (Auto) 1.9, Baso % (Auto) 0.7, Absolute Neuts (auto) 5.5, Absolute Lymphs (auto) 1.78, Nucleated RBC % 0 10/02/19 05:46: Sodium 146 H, Potassium 3.7, Chloride 114 H, Carbon Dioxide 25.0, Anion Gap 7, BUN 12, Creatinine 1.07, Estim Creat Clear Calc 77.89, Est GFR (MDRD) Af Amer 89, Est GFR (MDRD) Non-Af 73, BUN/Creatinine Ratio 11.2, Glucose 81, Calcium 8.0 L Current Medications Acetaminophen (Tylenol) 650 mg PO Q6H PRN PRN PRN Reason: Pain Score 1-10/Temp > 100.7 F Last Admin: 10/01/19 22:18 Dose: 650 mg Documented by: Aspirin (Ecotrin) 81 mg PO DAILY@0800 [facility] Last Admin: 10/02/19 10:27 Dose: 81 mg Documented by: Atorvastatin Calcium (Lipitor) 20 mg PO QHS [facility] Last Admin: 10/01/19 22:18 Dose: 20 mg Documented by: Diazepam (Valium) 5 mg PO 4X/DAY PRN PRN PRN Reason: SPASMS Enoxaparin Sodium (Lovenox) 40 mg SC DAILY [facility] Last Admin: 10/02/19 10:27 Dose: 40 mg Documented by: Hydromorphone HCl (Dilaudid Inj) 1 mg IV Q3H PRN PRN PRN Reason: Pain Score 6-10/10 Sodium Chloride () 250 mls @ 15 mls/hr IV .[id number] PRN PRN Reason: Saline Flush Last Infusion: 10/01/19 06:30 Dose: 0 mls/hr Documented by: Sodium Chloride () 1,000 mls @ 100 mls/hr IV .Q10H [facility] Last Admin: 10/02/19 01:36 Dose: 100 mls/hr Documented by: Ertapenem 1 gm/ Sodium (Chloride) 60 mls @ 100 mls/hr IV X1 ONE Stop: 10/02/19 15:35 Lisinopril (Zestril) 10 mg PO DAILY [facility] Last Admin: 10/02/19 10:27 Dose: 10 mg Documented by: Metoprolol Succinate (Toprol Xl (Beta Tre)) 50 mg PO QHS [facility] Last Admin: 10/01/19 22:18 Dose: 50 mg Documented by: Nutritional Formula (Yusuf - [place] Flavor) 1 packet PO BIDCM [facility] Last Admin: 10/02/19 10:01 Dose: Not Given Documented by: Ondansetron HCl (Zofran) 4 mg IV Q8H PRN PRN PRN Reason: NAUSEA/VOMITING Oxycodone HCl (Oxyir) 5 mg PO Q4H PRN PRN PRN Reason: Pain Score 4-10/10 Pantoprazole Sodium (Protonix) 20 mg PO DAILY [facility] Last Admin: 10/02/19 10:27 Dose: 20 mg Documented by: Senna/Docusate Sodium (Senokot-S, Kori-Colace) 2 tablet PO BID PRN PRN PRN Reason: Constipation Sodium Chloride () 10 - 40 ml IV UD PRN PRN Reason: SALINE FLUSH Last Admin: 09/30/19 02:30 Dose: 10 ml Documented by: Zolpidem Tartrate (Ambien (Generic)) 5 mg PO QHS PRN PRN PRN Reason: INSOMNIA Discharge Activity: May Not Drive Call your doctor if you observe: Fever of 101 or Higher, Numbness or Tingling, Change in Color, Inability to have a bowel movement, Shortness of breath, Dizziness, Fainting spells, Swelling in the ankles, Increased palpitations (irregular heartbeat), Calf discomfort, Uncontrolled pain Home Medications: Medications to take at Discharge Metoprolol(XL)Succ [Toprol Xl (Beta Tre)] 50 mg PO QHS 12/12/13 Multivitamins,Therapeutic [Multivitamin] 1 tab PO DAILY 12/12/13 Aspirin E.C. [Ecotrin] 81 mg PO DAILY@0800 09/27/19 Lisinopril [Zestril] 10 mg PO DAILY 09/27/19 Pantoprazole Sodium [Protonix] 20 mg PO DAILY 09/27/19 Simvastatin 40 mg PO QHS 09/27/19 Ertapenem Sodium [Ertapenem] 1 gm IV DAILY 40 Days #40 vial 10/02/19 Following Prescrptions Were Given to Patient: Ertapenem Sodium [Ertapenem] 1 gm IV DAILY 40 Days #40 vial Prescription Printed Primary Care Physician: Lucy Alvarado MD [Primary Care Provider] - Please follow up with your Primary Care Physician in: in 2 weeks Please Follow Up With: Solomon Dooley MD When: in 1-2 weeks. weekly visit to wound center Please Follow Up With: Lyndon Agee MD When: as needed in 2-3 weeks Medical Necessity - Tobacco Use Smoking Status: Former smoker Meaningful Use Info Meaningful Use Diagnoses (Choose all that apply): None applicable Inpatient E&M: 73277 Disch Hosp
[2019-10-02 15:38] VITALS: BP 145/73; PULSE 77; RESP 18; TEMP 37; O2SAT 97
--- NOTE | 2019-10-02 15:41 | CASEMGMT ---
Social Work Note RN updated this worker that pt was at [facility] for about a month, was on the vent, some vivid dreams while on the vent and may have some depression/PTSD. SW in to speak with pt. SW spoke with pt regarding his last month of being in the hospital a lot of the time. Pt states that it has been rough to say the least. Pt states that he was on the hospital side of [facility] for three weeks with two weeks of being on the vent and then spent another week on the rehab side at [facility] for a total of 4 weeks. Pt states that he is handling things well. Pt states that he has good family support and is looking forward to returning home, retiring, and spending time with his family. 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 Pt states that his is retired and he is looking forward to being able to sit on the front porch and look over his pond and watch deer. Pt states that it has been hard not being able to see his all that much lately. Pt states that he was only home for about a week before he was admitted to [facility]. Pt again states that he is very much so looking forward to getting home and enjoying his life at home. SW asked pt about any Mental Health History, depression specifically, etc. Pt denied any mental health history, denied any depressive symptoms, didn't mention any vivid dreams to this worker during conversation. Pt appears in good spirits during conversation and was laughing during conversation. Pt denied additional needs or concerns at this time. Pt thanked this worker for speaking to him. Yancy Max CONCRETE PRODUCTS MACHINE OPERATOR, WIRE COATING MACHINE OPERATOR
--- NOTE | 2019-10-02 17:09 | CON.PCM_ITS ---
Problem List (1) Osteomyelitis of pelvis Status: Acute Reason for Consult: osteo Consulted by: Dr. Martini History of Present Illness: The patient is a 69 year old M with admission to [facility] in August for pneumonia and suspected covid. Was on vent for 2 weeks. Discharged home with home health, had progressive decub ulcer, referred to wound care here, sent to the hospital. No fever, no cough or SOB, does not think stool was contaminating the wound. Started on vanc/zosyn, taken to OR 09/[address] Dooley. Feeling better, wound vac in place. Full ROS performed and neg except as noted above. - Medical History Past Medical History (Chronic Problems): Chronic Problems Cellulitis and abscess of buttock (Chronic) Former smoker (Chronic) History of pneumonia (Chronic) Sacral decubitus ulcer, stage IV (Chronic) Benign prostatic hyperplasia (Chronic) Hypertension (Chronic) Hyperlipidemia (Chronic) Allergies/Adverse Reactions: Allergies meloxicam Allergy (Verified 09/27/19 11:52) Swelling Home Medications: Ambulatory Orders Medication Instructions Recorded Metoprolol(XL)Succ [Toprol Xl 50 mg PO QHS 12/12/13 (Beta Tre)] Multivitamins,Therapeutic 1 tab PO DAILY 12/12/13 [Multivitamin] Aspirin E.C. [Ecotrin] 81 mg PO DAILY@0800 09/27/19 Lisinopril [Zestril] 10 mg PO DAILY 09/27/19 Pantoprazole Sodium [Protonix] 20 mg PO DAILY 09/27/19 Simvastatin 40 mg PO QHS 09/27/19 Ertapenem Sodium [Ertapenem] 1 gm IV DAILY 40 Days #40 vial 10/02/19 - Social History SMOKING STATUS:: Former smoker Vital Signs Temp Pulse Resp BP Pulse Ox 98.6 F 77 18 145/73 H 97 10/02/19 15:38 10/02/19 15:38 10/02/19 15:38 10/02/19 15:38 10/02/19 15:38 Oxygen Flow Rate (L/min) 2 Oxygen Delivery Method Room Air Weight: 90.718 kg Body Mass Index (BMI) 25.7 Microbiology Past 72 Hours 09/27/19 12:10 Gram Stain - Final Wound - Sacral Wound Culture - Final Granulicatella adiacens Anaerobic Culture - Final Anaerobic cocci Bacteroides thetaiotaomicron 09/27/19 13:35 Blood Culture - Final Blood Culture (Wb) - Anticubital Right No growth in 5 days. 09/27/19 13:10 Blood Culture - Final Blood Culture (Wb) - Anticubital Left No growth in 5 days. 09/30/19 14:26 Gram Stain - Final Tissue - Sacral Wound Culture - Preliminary No growth-Final to follow 09/30/19 14:28 Gram Stain - Final Bone - Other 09/27/19 18:10 Urine Culture - Final Urine, Clean Catch Culture exhibits no growth. 09/28/19 13:20 Coronavirus COVID-19 PCR - Final Mucosa - Nasopharyngeal Laboratory Tests Past 24 Hrs 10/02/19 10/02/19 05:46 05:46 WBC 8.2 RBC 2.94 L Hgb 8.7 L Hct 27.5 L MCV 93.5 MCH 29.6 MCHC 31.6 L RDW Std Deviation 46.7 H RDW Coeff of Thelma 14.1 Plt Count 210 MPV 10.1 Immature Gran % (Auto) 0.400 Neut % (Auto) 66.4 Lymph % (Auto) 21.6 Ralls % (Auto) 9.0 Eos % (Auto) 1.9 Baso % (Auto) 0.7 Absolute Neuts (auto) 5.5 Absolute Lymphs (auto) 1.78 Nucleated RBC % 0 Sodium 146 H Potassium 3.7 Chloride 114 H Carbon Dioxide 25.0 Anion Gap 7 BUN 12 Creatinine 1.07 Estim Creat Clear Calc 77.89 Est GFR (MDRD) Af Amer 89 Est GFR (MDRD) Non-Af 73 BUN/Creatinine Ratio 11.2 Glucose 81 Calcium 8.0 L - Other Studies Radiology: [] reviewed Other Studies: [] Route of nutrition/ use of supplements: [] Nutritional Intake: [] IV Site: [] Banks Catheter: [] - Physical Exam General: Alert, Oriented x3, Cooperative, No apparent distress HEENT: Atraumatic, PERRLA, EOMI Neck: Supple, No Nodes Lungs: Clear to auscultation, Normal air movement Cardiovascular: Regular rate, Regular Rhythm Abdomen: Soft, Non Tender, Non-Distended Extremities: No edema Skin: Ulcer/ Wound - wound vac in place IV Site: PICC, without redness Musculoskeletal: No Tenderness to Palpation of Joints or Extremities Neurological: Cranial nerves II-XII grossly intact - Assessment/Plan Antibiotics: [] Assessment/Plan: [] Pelvic osteo after long hospital stay at [facility] with suspected covid - now s/p OR with Dr. Dooley 10/01/19. Bone cx neg so far. Wound cx with granulicatella and anaerobes. Ok for d/c home on 6 week course of iv ertapenem, stop date 11/12/19, weekly bmp, cbc, LFT, and esr. Followup with me in 2-3 weeks at wound center. Will follow, thank you, d/w bilingual patient support caseworker and primary team.
== END 2019-10-02 16:51 | disposition home health service (06) | DRG 981 ==
LOC: ED 14:28 → MS3 14:52
PROVIDERS: Anesthesiology; Surgery; Admitting Provider Hospitalist; Emergency Provider Emergency Medicine; PCP Internal Medicine Infectious Disease; Visit Provider Internal Medicine
PROC: 0QB10ZZ Excision of Sacrum, Open Approach (ICD-10-PCS; CPT 15999; principal; 2019-09-30 12:15)
DX: I96 Gangrene, not elsewhere classified (principal); L89.154 Pressure ulcer of sacral region, stage 4; L02.31 Cutaneous abscess of buttock; L03.317 Cellulitis of buttock; M86.18 Other acute osteomyelitis, other site; B96.89 Other specified bacterial agents as the cause of diseases classified elsewhere; I10 Essential (primary) hypertension; E78.5 Hyperlipidemia, unspecified; N40.0 Benign prostatic hyperplasia without lower urinary tract symptoms; D64.89 Other specified anemias; Z87.891 Personal history of nicotine dependence; Z87.898 Personal history of other specified conditions; Z87.01 Personal history of pneumonia (recurrent); Z79.82 Long term (current) use of aspirin; Z79.899 Other long term (current) drug therapy
CPT/HCPCS: 11042; 11045; 36415; 36569; 71045; 74176; 80048; 80053; 80202; 81001; 83605; 84134; 85025; 85027; 85610; 85730; 87015; 87040; 87070; 87075; 87076; 87077; 87086; 87102; 87116; 87186; 87205; 87206; 87635; 87640; 88305; 88311; 93005; 96365; 97161; 97802; 99204; 99285; G2023; J7030; J7040; J7050; A4216; G0463; J2405; U0002

== ENCOUNTER 2019-11-11 13:30 | Outpatient (RCR) | payer MEDICARE, BC, SELFPAY ==
[2019-09-30 02:38] VITALS: BMI 25.7
[2019-10-14 00:34] VITALS: BP 123/80; PULSE 100; RESP 20; TEMP 35.9
[2019-10-21 14:26] VITALS: BP 186/102; PULSE 87; RESP 16; TEMP 36.8; BMI 25.7
--- NOTE | 2019-10-21 15:59 | PCM.WC.PN ---
(1) Sacral decubitus ulcer, stage IV Status: Chronic Code(s): L89.154 - Pressure ulcer of sacral region, stage 4 (2) Osteomyelitis of pelvis Status: Acute Code(s): M86.9 - Osteomyelitis, unspecified (3) Former smoker Status: Chronic Code(s): Z87.891 - Personal history of nicotine dependence (4) History of pneumonia Status: Chronic Code(s): Z87.01 - Personal history of pneumonia (recurrent) Type of Wound Date of Service: 10/21/19 Chief Complaint: pressure ulcer of sacrum/coccyx History of Wound: Jose is a very pleasant 69 yo gentleman who presents to the wound healing center for treatment of a pressure ulcer of his sacral area upon suggestion of his home health nurse. He was hospitalized on 08/23/2019 for bilateral pneumonia and exposure to COVID-19 and transferred from [place] to [facility] in [place] where he was intubated and in the ICU for he thinks approx. 2 weeks. He had pressure ulcer at the end of his hospital stay and reports that he was not turned while he was in the ICU and then was transferred to [facility] [place] [facility] for another 10 days for strengthening and the physician at the Rehab facility did not examine the ulcer but prescribed optifoam dressing and when he was finally discharged home on 09/19/2019 he was prescribed to use Santyl and optifoam. He began receiving Home Health services this week and the nurse evaluated his sacral ulcer and felt it was likely infected and needed treatment and evaluation by a wound healing specialist and referred him to [facility] wound center. He reports that he and his have been using maxi pads and incontinence briefs to absorb the heavy drainage from the ulcer with changing up to 4 times/day. They have also been applying Santyl daily since he was discharged from rehab facility. He was started on doxycycline on 09/26/2019 by the supervising physician from Home Health. No cultures were taken of the ulcer. He denies any fever or chills, cough, dyspnea but admits to an odor and very heavy drainage and severe pain from his wound. He has been trying to offload his sacral area as it is very painful for him to lie on his back or sit because of the ulcer. Minimal hospital reports were received from [place] that indicate that he was tested for multiple virus and bacterial causes of pneumonia, including coronaviruses but not COVID-19 specifically but based on his hospital course as he provides history and the imaging findings desccribed in the reports it is likely that he suffered from COVID-19 infection, although he does not exhibit any respiratory symptoms currently. Surgery 10/10/19 - Excision infected necrotic sacral pressure sore, Stage IV, with partial ostectomy for osteomyelitis. Surgical wound culture from 09/30/19 of soft tissue positive for Anaerobic cocci and Bacteroides thetaiotaomicron and from bone positive for Anaerobic cocci. Dr. Agee was consulted and he was placed on Ertapenem daily. Wound Care - Wound VAC with adaptic over the exposed bone. Today denies fever or chills. States appetite is good. Progress of Wound: Stable. - Physical Exam Vital Signs Temp Pulse Resp BP 98.2 F 87 16 186/102 H 10/21/19 14:26 10/21/19 14:26 10/21/19 14:26 10/21/19 14:26 General: Alert, Oriented x3, Cooperative HEENT: Atraumatic Oral: Moist Mucosa Lungs: Normal air movement Cardiovascular: Regular rate, Regular Rhythm Abdomen: Bowel Sounds Present Extremities: No edema, Capillary Refill Less than 3 Seconds Skin: Ulcer/ Wound - Sacral ulcer, stage IV, beefy pink in color. No odor Wound Measurements and Assessment WC - Nurse 1 - General Ulcer Measurement Start: 10/21/19 09:45 Freq: Status: Active Protocol: Activity Type Activity Date Activity User E-Sign Co-Sign Detail Recorded Client Recorded Date Recorded By Document 10/21/19 14:26 [facility] [id number] 10/21/19 14:42 [facility] 10/21/19 14:26 Wound Center Nurse 1 [Ulcer Assessment] #1 Sacrum -Combined with other wound No -Current Size (cm) - Length 11.1 -Current Size (cm) - Width 6 -Current Size (cm) - Depth 2.4 -Total Square Cm 66.6 -Date of Last Picture (Recall this 10/21/19 field) -Photo Taken Yes -Epithelialization None Present -Tunneling No -Undermining/Tunneling Yes -Undermining/Tunneling Starts (O' 1 clock) -Undermining/Tunneling Ends (O'clock) 4 -Maximum Distance (cm) 4 -Circular Undermining No -Exudate Amt Medium -Exudate Type Serosanguineous -Wound Margin Distinct, Outline Attached -Granulation Amt Medium (34-66%) -Granulation Quality Red -Slough/Fibrin Yes -Necrosis Amt Medium (34-66%) -Necrotic Tissue Type Adherent Slough -Texture (Kori-wound Skin Appearance) Assessed, Scarring -Moisture (Kori-wound Skin Appearance Assessed ) -Color (Kori-wound Skin Appearance) Assessed, Erythema -Temperature (Kori-wound Skin No Abnormality Appearance) (Pt Warm) -Tenderness on Palpation (Kori-wound No Skin Appearance) -Ulcer Cleansing soapy water -Foul Odor after Cleansing No -Anesthetic Used 4% Lidocaine Solution - Nurse 2 - General Ulcer CM Notes Start: 10/21/19 09:45 Freq: Status: Active Protocol: Activity Type Activity Date Activity User E-Sign Co-Sign Detail Recorded Client Recorded Date Recorded By Document 10/21/19 15:28 CINDY [id number] 10/21/19 15:29 10/21/19 15:28 Wound Center Nurse 2 [Procedure/Treatment] -Time 15:28 -Correct Patient Yes -Correct Side, Site, Position Yes -Correct Procedure Yes -Procedure Performed Yes -Type of Procedure Debridement -Clinical Debridement Muscle -Post Debridement Size (cm) - Length 11.0 -Post Debridement Size (cm) - Width 6.4 -Post Debridement Size (cm) - Depth 2.5 -Total Square Cm 70.40 -Wound/Ulcer Outcome Not Healed -Ulcer Cleansing Rinsed/ Irrigated with Saline -Foul Odor after Cleansing No -Bioengineered Tissue No -Bleeding Controlled with Pressure -Other tunnel-12-3:00- --4.0cm -Offloading No -Treatment Response Procedure Tolerated Well [See Physician Procedure note for Specifics] Pain Scale: 0-10 Numeric [Pain] -Is Patient Pain Free? Yes Musculoskeletal: No Tenderness to Palpation of Joints or Extremities Neurological: Neuro grossly intact Psych/Mental Status: Normal Affect, Appropriate Debridement Note Post-Debridement Measurements/Treatment - Nurse 2 - General Ulcer CM Notes Start: 10/21/19 09:45 Freq: Status: Active Protocol: Activity Type Activity Date Activity User E-Sign Co-Sign Detail Recorded Client Recorded Date Recorded By Document 10/21/19 15:28 [id number] 10/21/19 15:29 06/08/20 15:28 Wound Center Nurse 2 #1 Sacrum -Time 15:28 -Correct Patient Yes -Correct Side, Site, Position Yes -Correct Procedure Yes -Procedure Performed Yes -Type of Procedure Debridement -Clinical Debridement Muscle -Post Debridement Size (cm) - Length 11.0 -Post Debridement Size (cm) - Width 6.4 -Post Debridement Size (cm) - Depth 2.5 -Total Square Cm 70.40 -Wound/Ulcer Outcome Not Healed -Ulcer Cleansing Rinsed/ Irrigated with Saline -Foul Odor after Cleansing No -Bioengineered Tissue No -Bleeding Controlled with Pressure -Other tunnel-12-3:00- --4.0cm -Offloading No -Treatment Response Procedure Tolerated Well Pain Scale: 0-10 Numeric Is Patient Pain Free? Yes Wound debrided: Sacral ulcer Laterality: Not Applicable Type of Debridement: Excisional debridement Anesthesia Used: 5% Lidocaine Gel Depth: Down to and including healthy tissue, in the subcutaneous layer, to muscle Percentage of wound debrided: 100 Instrument Used: 7mm curette Tissue Removed: Subcutaneous tissue and slough into the muscle. Severity: Fat Layer Exposed Amount of bleeding with debridement: Mild Bleeding Controlled with: Pressure Patient tolerated procedure well Assessment/Plan Assessment: Stage IV pressure ulcer of sacrum/coccyx - possible osteomyelitis. Cellulitis buttock. HTN. h/o bilateral pneumonia - likely COVID-19 - resolved Plan: Surgery 10/10/19 - Excision infected necrotic sacral pressure sore, Stage IV, with partial ostectomy for osteomyelitis. Surgical wound culture from 09/30/19 of soft tissue positive for Anaerobic cocci and Bacteroides thetaiotaomicron and from bone positive for Anaerobic cocci. Dr. Agee was consulted and he was placed on Ertapenem daily. Wound Care - Wound VAC with adaptic over the exposed bone. Make sure to wash the ulcer and periwound with soap and water at the VAC changes and to coil the foam into the ulcer to make sure that it is getting into the base of the ulcer. Encouraged to increase protein in his diet. Follow up one week. [id number]: [id number] Global Visit
[2019-10-28 15:29] VITALS: BP 174/86; PULSE 70; RESP 16; TEMP 36.2; BMI 25.7
--- NOTE | 2019-10-28 15:38 | PN.PCM_ITS ---
<Solomon Dooley - Last Filed: 10/29/19 12:16> Type of Wound Date of Service: 10/29/19 - Physical Exam Vital Signs Temp Pulse Resp BP 97.2 F L 70 16 174/86 H 10/28/19 15:29 10/28/19 15:29 10/28/19 15:29 10/28/19 15:29 Wound Measurements and Assessment WC - Nurse 1 - General Ulcer Measurement Start: 10/21/19 09:45 Freq: Status: Active Protocol: Activity Type Activity Date Activity User E-Sign Co-Sign Detail Recorded Client Recorded Date Recorded By Document 10/28/19 15:29 CS [id number] 10/28/19 15:36 CS 10/28/19 15:29 Wound Center Nurse 1 [Ulcer Assessment] #1 Sacrum -Combined with other wound No -Current Size (cm) - Length 10.9 -Current Size (cm) - Width 6 -Current Size (cm) - Depth 1.3 -Total Square Cm 65.4 -Photo Taken No -Epithelialization None Present -Tunneling No -Undermining/Tunneling Yes -Undermining/Tunneling Starts (O' 12 clock) -Undermining/Tunneling Ends (O'clock) 4 -Maximum Distance (cm) 3.7 -Circular Undermining No -Exudate Amt Large -Exudate Type Serosanguineous -Wound Margin Distinct, Outline Attached -Granulation Amt Medium (34-66%) -Granulation Quality [place],Red -Slough/Fibrin Yes -Necrosis Amt Small (1-33%) -Necrotic Tissue Type Adherent Slough -Structure Exposed Bone -Texture (Kori-wound Skin Appearance) No Abnormality, Scarring -Moisture (Kori-wound Skin Appearance No Abnormality, ) Assessed -Color (Kori-wound Skin Appearance) No Abnormality, Assessed -Temperature (Kori-wound Skin No Abnormality Appearance) (Pt Warm) -Tenderness on Palpation (Kori-wound Yes Skin Appearance) -Ulcer Cleansing Rinsed/ Irrigated with Saline -Foul Odor after Cleansing No -Anesthetic Used 4% Lidocaine Solution [Edema Assessment] -Lower Limb Edema Present NA WC - Nurse 2 - General Ulcer CM Notes Start: 10/21/19 09:45 Freq: Status: Active Protocol: Activity Type Activity Date Activity User E-Sign Co-Sign Detail Recorded Client Recorded Date Recorded By Document 10/28/19 16:24 PL [id number] 10/28/19 16:25 PL 10/28/19 16:24 Wound Center Nurse 2 [Procedure/Treatment] #1 Sacrum -Time 15:50 -Correct Patient Yes -Correct Side, Site, Position Yes -Correct Procedure Yes -Procedure Performed Yes -Type of Procedure Debridement -Clinical Debridement Muscle -Post Debridement Size (cm) - Length 11 -Post Debridement Size (cm) - Width 6.3 -Post Debridement Size (cm) - Depth 1.9 -Total Square Cm 69.3 -Wound/Ulcer Outcome Not Healed -Ulcer Cleansing Rinsed/ Irrigated with Saline -Foul Odor after Cleansing No -Bleeding Controlled with Pressure -Treatment Response Procedure Tolerated Well [See Physician Procedure note for Specifics] Pain Scale: 0-10 Numeric [Pain] -Is Patient Pain Free? Yes Debridement Note Post-Debridement Measurements/Treatment WC - Nurse 2 - General Ulcer CM Notes Start: 10/21/19 09:45 Freq: Status: Active Protocol: Activity Type Activity Date Activity User E-Sign Co-Sign Detail Recorded Client Recorded Date Recorded By Document 10/21/19 15:28 [id number] 10/21/19 15:29 Document 10/28/19 16:24 [id number] 10/28/19 16:25 10/21/19 10/28/19 15:28 16:24 Wound Center Nurse 2 #1 Sacrum -Time 15:28 15:50 -Correct Patient Yes Yes -Correct Side, Site, Position Yes Yes -Correct Procedure Yes Yes -Procedure Performed Yes Yes -Type of Procedure Debridement Debridement -Clinical Debridement Muscle Muscle -Post Debridement Size (cm) - Length 11.0 11 -Post Debridement Size (cm) - Width 6.4 6.3 -Post Debridement Size (cm) - Depth 2.5 1.9 -Total Square Cm 70.40 69.3 -Wound/Ulcer Outcome Not Healed Not Healed -Ulcer Cleansing Rinsed/ Rinsed/ Irrigated with Irrigated with Saline Saline -Foul Odor after Cleansing No No -Bioengineered Tissue No -Bleeding Controlled with Pressure Pressure -Other tunnel-12-3:00- --4.0cm -Offloading No -Treatment Response Procedure Procedure Tolerated Well Tolerated Well Pain Scale: 0-10 Numeric Is Patient Pain Free? Yes Yes Assessment/Plan Active Problems Former smoker (Chronic) History of pneumonia (Chronic) Osteomyelitis of pelvis (Acute) Sacral decubitus ulcer, stage IV (Chronic) <Lin Rosales E - Last Filed: 10/30/19 14:00> (1) Sacral decubitus ulcer, stage IV Status: Chronic Current Visit: Yes Code(s): L89.154 - Pressure ulcer of sacral region, stage 4 (2) Osteomyelitis of pelvis Status: Acute Current Visit: Yes Code(s): M86.9 - Osteomyelitis, unspecified (3) Former smoker Status: Chronic Current Visit: Yes Code(s): Z87.891 - Personal history of nicotine dependence (4) History of pneumonia Status: Chronic Current Visit: Yes Code(s): Z87.01 - Personal history of pneumonia (recurrent) Type of Wound Date of Service: 10/28/19 Chief Complaint: pressure ulcer of sacrum/coccyx History of Wound: Jose is a very pleasant 69 yo gentleman who presents to the wound healing center for treatment of a pressure ulcer of his sacral area upon suggestion of his home health nurse. He was hospitalized on 08/23/2019 for bilateral pneumonia and exposure to COVID-19 and transferred from [place] to [facility] in [place] where he was intubated and in the ICU for he thinks approx. 2 weeks. He had pressure ulcer at the end of his hospital stay and reports that he was not turned while he was in the ICU and then was transferred to [facility] for another 10 days for strengthening and the physician at the Rehab facility did not examine the ulcer but prescribed optifoam dressing and when he was finally discharged home on 09/19/2019 he was prescribed to use Santyl and optifoam. He began receiving Home Health services this week and the nurse evaluated his sacral ulcer and felt it was likely infected and needed treatment and evaluation by a wound healing specialist and referred him to [facility] wound center. He reports that he and his have been using maxi pads and incontinence briefs to absorb the heavy drainage from the ulcer with changing up to 4 times/day. They have also been applying Santyl daily since he was discharged from rehab facility. He was started on doxycycline on 09/26/2019 by the supervising physician from Home Health. No cultures were taken of the ulcer. He denies any fever or chills, cough, dyspnea but admits to an odor and very heavy drainage and severe pain from his wound. He has been trying to offload his sacral area as it is very painful for him to lie on his back or sit because of the ulcer. Minimal hospital reports were received from [place] that indicate that he was tested for multiple virus and bacterial causes of pneumonia, including coronaviruses but not COVID-19 specifically but based on his hospital course as he provides history and the imaging findings desccribed in the reports it is likely that he suffered from COVID-19 infection, although he does not exhibit any respiratory symptoms currently. Surgery 10/10/19 - Excision infected necrotic sacral pressure sore, Stage IV, with partial ostectomy for osteomyelitis. Surgical wound culture from 09/30/19 of soft tissue positive for Anaerobic cocci and Bacteroides thetaiotaomicron and from bone positive for Anaerobic cocci. Dr. Agee was consulted and he was placed on Ertapenem daily. Wound Care - Wound VAC with adaptic over the exposed bone. Today denies fever or chills. States appetite is good. Progress of Wound: Stable. - Physical Exam Vital Signs Temp Pulse Resp BP 97.2 F L 70 16 174/86 H 10/28/19 15:29 10/28/19 15:29 10/28/19 15:29 10/28/19 15:29 General: Alert, Oriented x3, Cooperative HEENT: Atraumatic Oral: Moist Mucosa Lungs: Normal air movement Cardiovascular: Regular rate Extremities: No edema, Capillary Refill Less than 3 Seconds Skin: Ulcer/ Wound - Sacral ulcer is beefy pink. Kori wound looks good. Wound Measurements and Assessment WC - Nurse 1 - General Ulcer Measurement Start: 10/21/19 09:45 Freq: Status: Active Protocol: Activity Type Activity Date Activity User E-Sign Co-Sign Detail Recorded Client Recorded Date Recorded By Document 10/28/19 15:29 [id number] 10/28/19 15:36 CS 10/28/19 15:29 Wound Center Nurse 1 [Ulcer Assessment] #1 Sacrum -Combined with other wound No -Current Size (cm) - Length 10.9 -Current Size (cm) - Width 6 -Current Size (cm) - Depth 1.3 -Total Square Cm 65.4 -Photo Taken No -Epithelialization None Present -Tunneling No -Undermining/Tunneling Yes -Undermining/Tunneling Starts (O' 12 clock) -Undermining/Tunneling Ends (O'clock) 4 -Maximum Distance (cm) 3.7 -Circular Undermining No -Exudate Amt Large -Exudate Type Serosanguineous -Wound Margin Distinct, Outline Attached -Granulation Amt Medium (34-66%) -Granulation Quality [place],Red -Slough/Fibrin Yes -Necrosis Amt Small (1-33%) -Necrotic Tissue Type Adherent Slough -Structure Exposed Bone -Texture (Kori-wound Skin Appearance) No Abnormality, Scarring -Moisture (Kori-wound Skin Appearance No Abnormality, ) Assessed -Color (Kori-wound Skin Appearance) No Abnormality, Assessed -Temperature (Kori-wound Skin No Abnormality Appearance) (Pt Warm) -Tenderness on Palpation (Kori-wound Yes Skin Appearance) -Ulcer Cleansing Rinsed/ Irrigated with Saline -Foul Odor after Cleansing No -Anesthetic Used 4% Lidocaine Solution [Edema Assessment] -Lower Limb Edema Present NA Musculoskeletal: No Tenderness to Palpation of Joints or Extremities Neurological: Neuro grossly intact Psych/Mental Status: Normal Affect, Appropriate Debridement Note Post-Debridement Measurements/Treatment WC - Nurse 2 - General Ulcer CM Notes Start: 10/21/19 09:45 Freq: Status: Active Protocol: Activity Type Activity Date Activity User E-Sign Co-Sign Detail Recorded Client Recorded Date Recorded By Document 10/21/19 15:28 [id number] 10/21/19 15:29 10/21/19 15:28 Wound Center Nurse 2 #1 Sacrum -Time 15:28 -Correct Patient Yes -Correct Side, Site, Position Yes -Correct Procedure Yes -Procedure Performed Yes -Type of Procedure Debridement -Clinical Debridement Muscle -Post Debridement Size (cm) - Length 11.0 -Post Debridement Size (cm) - Width 6.4 -Post Debridement Size (cm) - Depth 2.5 -Total Square Cm 70.40 -Wound/Ulcer Outcome Not Healed -Ulcer Cleansing Rinsed/ Irrigated with Saline -Foul Odor after Cleansing No -Bioengineered Tissue No -Bleeding Controlled with Pressure -Other tunnel-12-3:00- --4.0cm -Offloading No -Treatment Response Procedure Tolerated Well Pain Scale: 0-10 Numeric Is Patient Pain Free? Yes Wound debrided: Sacral ulcer Type of Debridement: Excisional debridement Anesthesia Used: 5% Lidocaine Gel Depth: Down to and including healthy tissue, in the subcutaneous layer, to muscle Percentage of wound debrided: 100 Instrument Used: 7mm curette Tissue Removed: Subcutaneous tissue and slough into the muscle. Severity: Fat Layer Exposed Amount of bleeding with debridement: Mild Bleeding Controlled with: Compression and gauze Patient tolerated procedure well Assessment/Plan Assessment: Stage IV pressure ulcer of sacrum/coccyx - possible osteomyelitis. Cellulitis buttock. HTN. h/o bilateral pneumonia - likely COVID-19 - resolved Plan: Surgery 10/10/19 - Excision infected necrotic sacral pressure sore, Stage IV, with partial ostectomy for osteomyelitis. Surgical wound culture from 09/30/19 of soft tissue positive for Anaerobic cocci and Bacteroides thetaiotaomicron and from bone positive for Anaerobic cocci. Dr. Agee was consulted and he was placed on Ertapenem daily. Wound Care - Wound VAC with adaptic over the exposed bone. Make sure to wash the ulcer and periwound with soap and water at the VAC changes and to coil the foam into the ulcer to make sure that it is getting into the base of the ulcer. Encouraged to increase protein in his diet. Follow up one week. [id number]: [id number] Global Visit
[2019-11-04 08:32] VITALS: BP 158/83; PULSE 63; RESP 18; TEMP 36; BMI 25.7
--- NOTE | 2019-11-04 11:10 | PN.PCM_ITS ---
(1) Sacral decubitus ulcer, stage IV Status: Chronic Current Visit: Yes Code(s): L89.154 - Pressure ulcer of sacral region, stage 4 (2) Osteomyelitis of pelvis Status: Acute Current Visit: Yes Code(s): M86.9 - Osteomyelitis, unspecified (3) Former smoker Status: Chronic Current Visit: Yes Code(s): Z87.891 - Personal history of nicotine dependence (4) History of pneumonia Status: Chronic Current Visit: Yes Code(s): Z87.01 - Personal history of pneumonia (recurrent) Type of Wound Date of Service: 11/04/19 Chief Complaint: pressure ulcer of sacrum/coccyx History of Wound: Jose is a very pleasant 69 yo gentleman who presents to the wound healing center for treatment of a pressure ulcer of his sacral area upon suggestion of his home health nurse. He was hospitalized on 08/23/2019 for bilateral pneumonia and exposure to COVID-19 and transferred from [place] to [facility] in [place] where he was intubated and in the ICU for he thinks approx. 2 weeks. He had pressure ulcer at the end of his hospital stay and reports that he was not turned while he was in the ICU and then was transferred to [facility] facility for another 10 days for strengthening and the physician at the Rehab facility did not examine the ulcer but prescribed optifoam dressing and when he was finally discharged home on 09/19/2019 he was prescribed to use Santyl and optifoam. He began receiving Home Health services this week and the nurse evaluated his sacral ulcer and felt it was likely infected and needed treatment and evaluation by a wound healing specialist and referred him to [facility] wound center. He reports that he and his have been using maxi pads and incontinence briefs to absorb the heavy drainage from the ul cer with changing up to 4 times/day. They have also been applying Santyl daily since he was discharged from rehab facility. He was started on doxycycline on 09/26/2019 by the supervising physician from Home Health. No cultures were taken of the ulcer. He denies any fever or chills, cough, dyspnea but admits to an odor and very heavy drainage and severe pain from his wound. He has been trying to offload his sacral area as it is very painful for him to lie on his back or sit because of the ulcer. Minimal hospital reports were received from [facility] that indicate that he was tested for multiple virus and bacterial causes of pneumonia, including coronaviruses but not COVID-19 specifically but based on his hospital course as he provides history and the imaging findings desccribed in the reports it is likely that he suffered from COVID-19 infection, although he does not exhibit any respiratory symptoms currently. Surgery 10/10/19 - Excision infected necrotic sacral pressure sore, Stage IV, with partial ostectomy for osteomyelitis. Surgical wound culture from 09/30/19 of soft tissue positive for Anaerobic cocci and Bacteroides thetaiotaomicron and from bone positive for Anaerobic cocci. Dr. Agee was consulted and he was placed on Ertapenem daily. Wound Care - Wound VAC, will stop the adaptic over the exposed bone due to increased biofilm. If he doesn't tolerate not having the adaptic over the bone, then we can restart it. Today denies fever or chills. States appetite is good. Progress of Wound: Improved. - Physical Exam Vital Signs Temp Pulse Resp BP 96.8 F L 63 18 158/83 H 11/04/19 08:32 11/04/19 08:32 11/04/19 08:32 11/04/19 08:32 General: Alert, Oriented x3, Cooperative HEENT: Atraumatic Oral: Moist Mucosa Lungs: Normal air movement Cardiovascular: Regular rate Abdomen: Soft Extremities: Capillary Refill Less than 3 Seconds Skin: Ulcer/ Wound - Sacral ulcer, stage IV, into the muscle with bone exposure. Increased biofilm over the bone. He has a tunnel at 2-3 o'clock with significant amount of depth. Wound Measurements and Assessment WC - Nurse 1 - General Ulcer Measurement Start: 10/21/19 09:45 Freq: Status: Active Protocol: Activity Type Activity Date Activity User E-Sign Co-Sign Detail Recorded Client Recorded Date Recorded By Document 11/04/19 08:32 [facility] [id number] 11/04/19 08:46 [facility] 11/04/19 08:32 Wound Center Nurse 1 [Ulcer Assessment] #1 Sacrum -Combined with other wound No -Current Size (cm) - Length 11 -Current Size (cm) - Width 5.7 -Current Size (cm) - Depth 1.1 -Total Square Cm 62.7 -Photo Taken No -Epithelialization Small 1-33% -Tunneling No -Undermining/Tunneling Yes -Undermining/Tunneling Starts (O' 1 clock) -Undermining/Tunneling Ends (O'clock) 4 -Maximum Distance (cm) 3.6 -Circular Undermining No -Exudate Amt Large -Exudate Type Serosanguineous -Wound Margin Distinct, Outline Attached -Granulation Amt Medium (34-66%) -Granulation Quality Red -Slough/Fibrin Yes -Necrosis Amt Medium (34-66%) -Necrotic Tissue Type Adherent Slough -Structure Exposed Bone -Texture (Kori-wound Skin Appearance) Assessed, Scarring -Moisture (Kori-wound Skin Appearance Assessed ) -Color (Kori-wound Skin Appearance) Assessed -Temperature (Kori-wound Skin No Abnormality Appearance) (Pt Warm) -Tenderness on Palpation (Kori-wound Yes Skin Appearance) -Ulcer Cleansing soapy water -Foul Odor after Cleansing No -Anesthetic Used 4% Lidocaine Solution WC - Nurse 2 - General Ulcer CM Notes Start: 10/21/19 09:45 Freq: Status: Active Protocol: Activity Type Activity Date Activity User E-Sign Co-Sign Detail Recorded Client Recorded Date Recorded By Document 11/04/19 09:06 CINDY [id number] 11/04/19 09:10 CINDY 11/04/19 09:06 Wound Center Nurse 2 [Procedure/Treatment] -Time 09:08 -Correct Patient Yes -Correct Side, Site, Position Yes -Correct Procedure Yes -Procedure Performed Yes -Type of Procedure Debridement -Clinical Debridement Muscle -Post Debridement Size (cm) - Length 10.6 -Post Debridement Size (cm) - Width 5.8 -Post Debridement Size (cm) - Depth 2.0 -Total Square Cm 61.48 -Wound/Ulcer Outcome Not Healed -Ulcer Cleansing Rinsed/ Irrigated with Saline -Foul Odor after Cleansing No -Bioengineered Tissue No -Bleeding Controlled with Pressure -Other tunnel 1-3:00=3 .6cm 7:00-- small tunnel area noted. -Offloading No -Treatment Response Procedure Tolerated Well [See Physician Procedure note for Specifics] Pain Scale: 0-10 Numeric [Pain] -Is Patient Pain Free? Yes Musculoskeletal: No Muscle Wasting Neurological: Neuro grossly intact Psych/Mental Status: Normal Affect, Appropriate Debridement Note Post-Debridement Measurements/Treatment WC - Nurse 2 - General Ulcer CM Notes Start: 10/21/19 09:45 Freq: Status: Active Protocol: Activity Type Activity Date Activity User E-Sign Co-Sign Detail Recorded Client Recorded Date Recorded By Document 10/21/19 15:28 [id number] 10/21/19 15:29 JF Document 10/28/19 16:24 PL [id number] 10/28/19 16:25 PL Document 11/04/19 09:06 [id number] 11/04/19 09:10 10/21/19 10/28/19 11/04/19 15:28 16:24 09:06 Wound Center Nurse 2 #1 Sacrum -Time 15:28 15:50 09:08 -Correct Patient Yes Yes Yes -Correct Side, Site, Position Yes Yes Yes -Correct Procedure Yes Yes Yes -Procedure Performed Yes Yes Yes -Type of Procedure Debridement Debridement Debridement -Clinical Debridement Muscle Muscle Muscle -Post Debridement Size (cm) - Length 11.0 11 10.6 -Post Debridement Size (cm) - Width 6.4 6.3 5.8 -Post Debridement Size (cm) - Depth 2.5 1.9 2.0 -Total Square Cm 70.40 69.3 61.48 -Wound/Ulcer Outcome Not Healed Not Healed Not Healed -Ulcer Cleansing Rinsed/ Rinsed/ Rinsed/ Irrigated with Irrigated with Irrigated with Saline Saline Saline -Foul Odor after Cleansing No No No -Bioengineered Tissue No No -Bleeding Controlled with Pressure Pressure Pressure -Other tunnel-12-3:00- tunnel 1-3:00=3 --4.0cm .6cm 7:00-- small tunnel area noted. -Offloading No No -Treatment Response Procedure Procedure Procedure Tolerated Well Tolerated Well Tolerated Well Pain Scale: 0-10 Numeric Is Patient Pain Free? Yes Yes Yes Wound debrided: Sacral ulcer Wound Grade/Stage: Stage IV Type of Debridement: Excisional debridement Anesthesia Used: 5% Lidocaine Gel Depth: Down to and including healthy tissue, in the subcutaneous layer, to muscle Percentage of wound debrided: 100 Instrument Used: 3mm curette, 7mm curette Tissue Removed: Subcutaneous tissue and slough, into the muscle Severity: Fat Layer Exposed Amount of bleeding with debridement: Mild Bleeding Controlled with: Pressure, Compression and gauze Patient tolerated procedure well Exposed bone with increased biofilm. #3 used in the tunneled area at 2-3 o'clock Assessment/Plan Active Problems Former smoker (Chronic) History of pneumonia (Chronic) Osteomyelitis of pelvis (Acute) Sacral decubitus ulcer, stage IV (Chronic) Assessment: Stage IV pressure ulcer of sacrum/coccyx - possible osteomyelitis. Cellulitis buttock. HTN. h/o bilateral pneumonia - likely COVID-19 - resolved Plan: Surgery 10/10/19 - Excision infected necrotic sacral pressure sore, Stage IV, with partial ostectomy for osteomyelitis. Surgical wound culture from 09/30/19 of soft tissue positive for Anaerobic cocci and Bacteroides thetaiotaomicron and from bone positive for Anaerobic cocci. Dr. Agee was consulted and he was placed on Ertapenem daily. Wound Care - Wound VAC, will stop adaptic over the exposed bone due to the increased biofilm. If he has increased pain with no adaptic, then we can restart it if necessary. Instructions for packing foam into the tunnel sent to home health. Make sure to wash the ulcer and periwound with soap and water at the VAC changes and to coil the foam into the ulcer to make sure that it is getting into the base of the ulcer. Encouraged to increase protein in his diet. Follow up one week. [id number]: [id number] Global Visit
[2019-11-11 13:47] VITALS: BP 148/72; PULSE 65; RESP 16; TEMP 36.3; BMI 25.7
--- NOTE | 2019-11-11 16:09 | PCM.WC.PN ---
(1) Sacral decubitus ulcer, stage IV Status: Chronic Code(s): L89.154 - Pressure ulcer of sacral region, stage 4 (2) Osteomyelitis of pelvis Status: Acute Code(s): M86.9 - Osteomyelitis, unspecified (3) Former smoker Status: Chronic Code(s): Z87.891 - Personal history of nicotine dependence (4) History of pneumonia Status: Chronic Code(s): Z87.01 - Personal history of pneumonia (recurrent) Type of Wound Date of Service: 11/11/19 Chief Complaint: pressure ulcer of sacrum/coccyx History of Wound: Jose is a very pleasant 69 yo gentleman who presents to the wound healing center for treatment of a pressure ulcer of his sacral area upon suggestion of his home health nurse. He was hospitalized on 08/23/2019 for bilateral pneumonia and exposure to COVID-19 and transferred from [place] to [facility] in [place] where he was intubated and in the ICU for he thinks approx. 2 weeks. He had pressure ulcer at the end of his hospital stay and reports that he was not turned while he was in the ICU and then was transferred to [facility] for another 10 days for strengthening and the physician at the Rehab facility did not examine the ulcer but prescribed optifoam dressing and when he was finally discharged home on 09/19/2019 he was prescribed to use Santyl and optifoam. He began receiving Home Health services this week and the nurse evaluated his sacral ulcer and felt it was likely infected and needed treatment and evaluation by a wound healing specialist and referred him to [facility] wound center. He reports that he and his have been using maxi pads and incontinence briefs to absorb the heavy drainage from the ulcer with changing up to 4 times/day. They have also been applying Santyl daily since he was discharged from rehab facility. He was started on doxycycline on 09/26/2019 by the supervising physician from Home Health. No cultures were taken of the ulcer. He denies any fever or chills, cough, dyspnea but admits to an odor and very heavy drainage and severe pain from his wound. He has been trying to offload his sacral area as it is very painful for him to lie on his back or sit because of the ulcer. Minimal hospital reports were received from [facility] that indicate that he was tested for multiple virus and bacterial causes of pneumonia, including coronaviruses but not COVID-19 specifically but based on his hospital course as he provides history and the imaging findings desccribed in the reports it is likely that he suffered from COVID-19 infection, although he does not exhibit any respiratory symptoms currently. Surgery 10/10/19 - Excision infected necrotic sacral pressure sore, Stage IV, with partial ostectomy for osteomyelitis. Surgical wound culture from 09/30/19 of soft tissue positive for Anaerobic cocci and Bacteroides thetaiotaomicron and from bone positive for Anaerobic cocci. Dr. Agee was consulted and he was placed on Ertapenem daily. Wound Care - Wound VAC, will stop the adaptic over the exposed bone due to increased biofilm. He is tolerating not having the adaptic over the bone. Today denies fever or chills. States appetite is good. Progress of Wound: Improved. - Physical Exam Vital Signs Temp Pulse Resp BP 97.3 F L 65 16 148/72 H 11/11/19 13:47 11/11/19 13:47 11/11/19 13:47 11/11/19 13:47 General: Alert, Oriented x3, Cooperative HEENT: Atraumatic Oral: Moist Mucosa Lungs: Normal air movement Cardiovascular: Regular rate Extremities: Capillary Refill Less than 3 Seconds Skin: Ulcer/ Wound - Sacral ulcer with bone exposure Wound Measurements and Assessment WC - Nurse 1 - General Ulcer Measurement Start: 10/21/19 09:45 Freq: Status: Active Protocol: Activity Type Activity Date Activity User E-Sign Co-Sign Detail Recorded Client Recorded Date Recorded By Document 11/11/19 13:47 [facility] [id number] 11/11/19 14:09 [facility] 11/11/19 13:47 Wound Center Nurse 1 [Ulcer Assessment] #1 Sacrum -Combined with other wound No -Current Size (cm) - Length 10.4 -Current Size (cm) - Width 5.5 -Current Size (cm) - Depth 1.2 -Total Square Cm 57.20 -Photo Taken No -Epithelialization Small 1-33% -Tunneling No -Undermining/Tunneling Yes -Undermining/Tunneling Starts (O' 12 clock) -Undermining/Tunneling Ends (O'clock) 3 -Maximum Distance (cm) 2.8 -Circular Undermining No -Exudate Amt Medium -Exudate Type Serosanguineous -Wound Margin Distinct, Outline Attached -Granulation Amt Large (67-100%) -Granulation Quality Red -Slough/Fibrin Yes -Necrosis Amt Medium (34-66%) -Necrotic Tissue Type Adherent Slough -Structure Exposed Bone -Texture (Kori-wound Skin Appearance) Assessed, Scarring -Moisture (Kori-wound Skin Appearance Assessed ) -Color (Kori-wound Skin Appearance) Assessed -Temperature (Kori-wound Skin No Abnormality Appearance) (Pt Warm) -Tenderness on Palpation (Kori-wound Yes Skin Appearance) -Ulcer Cleansing soapy water -Foul Odor after Cleansing No -Anesthetic Used 4% Lidocaine Solution - Nurse 2 - General Ulcer CM Notes Start: 10/21/19 09:45 Freq: Status: Active Protocol: Activity Type Activity Date Activity User E-Sign Co-Sign Detail Recorded Client Recorded Date Recorded By Document 11/11/19 14:43 [id number] 11/11/19 14:46 11/11/19 14:43 Wound Center Nurse 2 [Procedure/Treatment] -Time 14:44 -Correct Patient Yes -Correct Side, Site, Position Yes -Correct Procedure Yes -Procedure Performed Yes -Type of Procedure Debridement -Clinical Debridement Muscle -Post Debridement Size (cm) - Length 10.5 -Post Debridement Size (cm) - Width 5.5 -Post Debridement Size (cm) - Depth 2.0 -Total Square Cm 57.75 -Wound/Ulcer Outcome Not Healed -Ulcer Cleansing Rinsed/ Irrigated with Saline -Foul Odor after Cleansing No -Bioengineered Tissue No -Bleeding Controlled with Pressure -Other tunnel 2-3:00-- -3.0cm -Offloading No -Treatment Response Procedure Tolerated Well [See Physician Procedure note for Specifics] Pain Scale: 0-10 Numeric [Pain] -Is Patient Pain Free? Yes Musculoskeletal: No Tenderness to Palpation of Joints or Extremities Neurological: Neuro grossly intact Psych/Mental Status: Normal Affect, Appropriate Debridement Note Post-Debridement Measurements/Treatment - Nurse 2 - General Ulcer CM Notes Start: 10/21/19 09:45 Freq: Status: Active Protocol: Activity Type Activity Date Activity User E-Sign Co-Sign Detail Recorded Client Recorded Date Recorded By Document 10/21/19 15:28 JF [id number] 10/21/19 15:29 Document 10/28/19 16:24 PL [id number] 10/28/19 16:25 Document 11/04/19 09:06 [id number] 11/04/19 09:10 JF Document 11/11/19 14:43 [id number] 11/11/19 14:46 10/21/19 10/28/19 11/04/19 15:28 16:24 09:06 Wound Center Nurse 2 #1 Sacrum -Time 15:28 15:50 09:08 -Correct Patient Yes Yes Yes -Correct Side, Site, Position Yes Yes Yes -Correct Procedure Yes Yes Yes -Procedure Performed Yes Yes Yes -Type of Procedure Debridement Debridement Debridement -Clinical Debridement Muscle Muscle Muscle -Post Debridement Size (cm) - Length 11.0 11 10.6 -Post Debridement Size (cm) - Width 6.4 6.3 5.8 -Post Debridement Size (cm) - Depth 2.5 1.9 2.0 -Total Square Cm 70.40 69.3 61.48 -Wound/Ulcer Outcome Not Healed Not Healed Not Healed -Ulcer Cleansing Rinsed/ Rinsed/ Rinsed/ Irrigated with Irrigated with Irrigated with Saline Saline Saline -Foul Odor after Cleansing No No No -Bioengineered Tissue No No -Bleeding Controlled with Pressure Pressure Pressure -Other tunnel-12-3:00- tunnel 1-3:00=3 --4.0cm .6cm 7:00-- small tunnel area noted. -Offloading No No -Treatment Response Procedure Procedure Procedure Tolerated Well Tolerated Well Tolerated Well Pain Scale: 0-10 Numeric Is Patient Pain Free? Yes Yes Yes 11/11/19 14:43 Wound Center Nurse 2 #1 Sacrum -Time 14:44 -Correct Patient Yes -Correct Side, Site, Position Yes -Correct Procedure Yes -Procedure Performed Yes -Type of Procedure Debridement -Clinical Debridement Muscle -Post Debridement Size (cm) - Length 10.5 -Post Debridement Size (cm) - Width 5.5 -Post Debridement Size (cm) - Depth 2.0 -Total Square Cm 57.75 -Wound/Ulcer Outcome Not Healed -Ulcer Cleansing Rinsed/ Irrigated with Saline -Foul Odor after Cleansing No -Bioengineered Tissue No -Bleeding Controlled with Pressure -Other tunnel 2-3:00-- -3.0cm -Offloading No -Treatment Response Procedure Tolerated Well Pain Scale: 0-10 Numeric Is Patient Pain Free? Yes Wound debrided: Sacral ulcer Type of Debridement: Excisional debridement Anesthesia Used: 5% Lidocaine Gel Depth: Down to and including healthy tissue, in the subcutaneous layer, to muscle Percentage of wound debrided: 100 Instrument Used: 7mm curette Tissue Removed: Subcutaneous tissue and slough into te muscle with bone exposure Severity: Fat Layer Exposed Amount of bleeding with debridement: Mild Bleeding Controlled with: Pressure Patient tolerated procedure well Assessment/Plan Assessment: Stage IV pressure ulcer of sacrum/coccyx - possible osteomyelitis. Cellulitis buttock. HTN. h/o bilateral pneumonia - likely COVID-19 - resolved Plan: Surgery 10/10/19 - Excision infected necrotic sacral pressure sore, Stage IV, with partial ostectomy for osteomyelitis. Surgical wound culture from 09/30/19 of soft tissue positive for Anaerobic cocci and Bacteroides thetaiotaomicron and from bone positive for Anaerobic cocci. Dr. Agee was consulted and he was placed on Ertapenem daily. Wound Care - Wound VAC, no adaptic over the exposed bone due to the increased biofilm. He is tolerating the dressing changes with no adaptic. Instructions for packing foam into the tunnel sent to home health. Make sure to wash the ulcer and periwound with soap and water at the VAC changes and to coil the foam into the ulcer to make sure that it is getting into the base of the ulcer. He finishes his antibiotics on Monday and then his PICC line can be pulled. Encouraged to increase protein in his diet. Follow up two weeks. [id number]: [id number] Global Visit
== END 2019-11-12 23:59 ==
LOC: WC 13:30
PROVIDERS: PCP Internal Medicine Infectious Disease; Referring Provider Internal Medicine Infectious Disease; Visit Provider Family Medicine
DX: L89.154 Pressure ulcer of sacral region, stage 4 (principal); M86.9 Osteomyelitis, unspecified; Z87.891 Personal history of nicotine dependence; Z87.01 Personal history of pneumonia (recurrent); Z20.828 Contact with and (suspected) exposure to other viral communicable diseases; L03.317 Cellulitis of buttock; I10 Essential (primary) hypertension
CPT/HCPCS: 11043; 11046; 97606

== ENCOUNTER 2019-12-09 11:30 | Outpatient (RCR) | payer MEDICARE, BC, SELFPAY ==
[2019-11-13 00:31] VITALS: BP 148/72; PULSE 65; RESP 16; TEMP 36.3
[2019-11-25 13:18] VITALS: BP 171/102; PULSE 74; RESP 18; TEMP 36.6; BMI 25.7
--- NOTE | 2019-11-25 15:44 | PN.PCM_ITS ---
(1) Sacral decubitus ulcer, stage IV Status: Chronic Current Visit: Yes Code(s): L89.154 - Pressure ulcer of sacral region, stage 4 (2) Osteomyelitis of pelvis Status: Chronic Current Visit: Yes Code(s): M86.9 - Osteomyelitis, unspecified (3) History of pneumonia Status: Chronic Current Visit: Yes Code(s): Z87.01 - Personal history of pneumonia (recurrent) (4) Former smoker Status: Chronic Current Visit: Yes Code(s): Z87.891 - Personal history of nicotine dependence Type of Wound Date of Service: 11/25/19 Chief Complaint: pressure ulcer of sacrum/coccyx History of Wound: Jose is a very pleasant 69 yo gentleman who presents to the wound healing center for treatment of a pressure ulcer of his sacral area upon suggestion of his home health nurse. He was hospitalized on 08/23/2019 for bilateral pneumonia and exposure to COVID-19 and transferred from [place] to [facility] in [place] where he was intubated and in the ICU for he thinks approx. 2 weeks. He had pressure ulcer at the end of his hospital stay and reports that he was not turned while he was in the ICU and then was transferred to [facility] for another 10 days for strengthening and the physician at the Rehab facility did not examine the ulcer but prescribed optifoam dressing and when he was finally discharged home on 09/19/2019 he was prescribed to use Santyl and optifoam. He began receiving Home Health services this week and the nurse evaluated his sacral ulcer and felt it was likely infected and needed treatment and evaluation by a wound healing specialist and referred him to [facility] wound center. He reports that he and his have been using maxi pads and incontinence briefs to absorb the heavy drainage from the ulcer with changing up to 4 times/day. They have also been applying Santyl daily since he was discharged from rehab facility. He was started on doxycycline on 09/26/2019 by the supervising physician from Home Health. No cultures were taken of the ulcer. He denies any fever or chills, cough, dyspnea but admits to an odor and very heavy drainage and severe pain from his wound. He has been trying to offload his sacral area as it is very painful for him to lie on his back or sit because of the ulcer. Minimal hospital reports were received from [facility] that indicate that he was tested for multiple virus and bacterial causes of pneumonia, including coronaviruses but not COVID-19 specifically but based on his hospital course as he provides history and the imaging findings desccribed in the reports it is likely that he suffered from COVID-19 infection, although he does not exhibit any respiratory symptoms currently. Surgery 10/10/19 - Excision infected necrotic sacral pressure sore, Stage IV, with partial ostectomy for osteomyelitis. Surgical wound culture from 09/30/19 of soft tissue positive for Anaerobic cocci and Bacteroides thetaiotaomicron and from bone positive for Anaerobic cocci. Dr. Agee was consulted and he was placed on Ertapenem daily. Wound Care - Wound VAC, will stop the adaptic over the exposed bone due to increased biofilm. He is tolerating not having the adaptic over the bone. Today denies fever or chills. States appetite is good. Progress of Wound: Improved. - Physical Exam Vital Signs Temp Pulse Resp BP 97.8 F 74 18 171/102 H 11/25/19 13:18 11/25/19 13:18 11/25/19 13:18 11/25/19 13:18 General: Alert, Oriented x3, Cooperative HEENT: Atraumatic Oral: Moist Mucosa Neck: Supple Lungs: Clear to auscultation Cardiovascular: Regular rate Extremities: Capillary Refill Less than 3 Seconds Skin: Ulcer/ Wound - Sacral ulcer with improvement Wound Measurements and Assessment WC - Nurse 1 - General Ulcer Measurement Start: 11/25/19 13:17 Freq: Status: Active Protocol: Activity Type Activity Date Activity User E-Sign Co-Sign Detail Recorded Client Recorded Date Recorded By Document 11/25/19 13:18 PL [id number] 11/25/19 13:31 PL 11/25/19 13:18 Wound Center Nurse 1 [Ulcer Assessment] #1 Sacrum -Combined with other wound No -Current Size (cm) - Length 9.0 -Current Size (cm) - Width 4.5 -Current Size (cm) - Depth 1.0 -Total Square Cm 40.50 -Photo Taken No -Epithelialization None Present -Tunneling Yes -Tunneling Position (O'clock) 2 -Tunneling Distance (cm) 1.5 -Undermining/Tunneling No -Exudate Amt Large -Exudate Type Serosanguineous -Granulation Amt Large (67-100%) -Granulation Quality [place],Red -Slough/Fibrin Yes -Necrosis Amt Small (1-33%) -Necrotic Tissue Type Adherent Slough -Texture (Kori-wound Skin Appearance) No Abnormality -Moisture (Kori-wound Skin Appearance No Abnormality ) -Color (Kori-wound Skin Appearance) Erythema -Temperature (Kori-wound Skin No Abnormality Appearance) (Pt Warm) -Tenderness on Palpation (Kori-wound No Skin Appearance) -Ulcer Cleansing Rinsed/ Irrigated with Saline -Foul Odor after Cleansing No -Anesthetic Used 4% Lidocaine Solution WC - Nurse 2 - General Ulcer CM Notes Start: 11/25/19 13:17 Freq: Status: Active Protocol: Activity Type Activity Date Activity User E-Sign Co-Sign Detail Recorded Client Recorded Date Recorded By Document 11/25/19 13:45 [email or web address] [id number] 11/25/19 13:50 11/25/19 13:45 Wound Center Nurse 2 [Procedure/Treatment] -Time 13:47 -Correct Patient Yes -Correct Side, Site, Position Yes -Correct Procedure Yes -Procedure Performed Yes -Type of Procedure Debridement -Clinical Debridement Muscle -Post Debridement Size (cm) - Length 9.7 -Post Debridement Size (cm) - Width 4.5 -Post Debridement Size (cm) - Depth 1.6 -Total Square Cm 43.65 -Wound/Ulcer Outcome Not Healed -Ulcer Cleansing Rinsed/ Irrigated with Saline -Foul Odor after Cleansing No -Bioengineered Tissue No -Bleeding Controlled with Pressure -Other tunnel 2-3:00 2.3cm -Offloading No -Treatment Response Procedure Tolerated Well [See Physician Procedure note for Specifics] Pain Scale: 0-10 Numeric [Pain] -Is Patient Pain Free? Yes Musculoskeletal: No Tenderness to Palpation of Joints or Extremities Neurological: Cranial nerves II-XII grossly intact Psych/Mental Status: Normal Affect, Appropriate Debridement Note Post-Debridement Measurements/Treatment - Nurse 2 - General Ulcer CM Notes Start: 11/25/19 13:17 Freq: Status: Active Protocol: Activity Type Activity Date Activity User E-Sign Co-Sign Detail Recorded Client Recorded Date Recorded By Document 11/25/19 13:45 [id number] [id number] 11/25/19 13:50 11/25/19 13:45 Wound Center Nurse 2 #1 Sacrum -Time 13:47 -Correct Patient Yes -Correct Side, Site, Position Yes -Correct Procedure Yes -Procedure Performed Yes -Type of Procedure Debridement -Clinical Debridement Muscle -Post Debridement Size (cm) - Length 9.7 -Post Debridement Size (cm) - Width 4.5 -Post Debridement Size (cm) - Depth 1.6 -Total Square Cm 43.65 -Wound/Ulcer Outcome Not Healed -Ulcer Cleansing Rinsed/ Irrigated with Saline -Foul Odor after Cleansing No -Bioengineered Tissue No -Bleeding Controlled with Pressure -Other tunnel 2-3:00 2.3cm -Offloading No -Treatment Response Procedure Tolerated Well Pain Scale: 0-10 Numeric Is Patient Pain Free? Yes Wound debrided: Sacral ulcer Type of Debridement: Excisional debridement Anesthesia Used: 5% Lidocaine Gel Depth: Down to and including healthy tissue, in the subcutaneous layer, to muscle Percentage of wound debrided: 100 Instrument Used: 7mm curette Tissue Removed: Subcutaneous tissue and slough into the muscle Severity: Fat Layer Exposed Amount of bleeding with debridement: Mild Bleeding Controlled with: Pressure Patient tolerated procedure well Assessment/Plan Active Problems Former smoker (Chronic) History of pneumonia (Chronic) Osteomyelitis of pelvis (Chronic) Sacral decubitus ulcer, stage IV (Chronic) Assessment: Stage IV pressure ulcer of sacrum/coccyx - possible osteomyelitis. Cellulitis buttock. HTN. h/o bilateral pneumonia - likely COVID-19 - resolved Plan: Surgery 10/10/19 - Excision infected necrotic sacral pressure sore, Stage IV, with partial ostectomy for osteomyelitis. Surgical wound culture from 09/30/19 of soft tissue positive for Anaerobic cocci and Bacteroides thetaiotaomicron and from bone positive for Anaerobic cocci. Dr. Agee was consulted and he was placed on Ertapenem daily. Wound Care - Wound VAC, no adaptic over the exposed bone due to the increased biofilm. He is tolerating the dressing changes with no adaptic. Wound bed is improving. Instructions for packing foam into the tunnel sent to home health. Make sure to wash the ulcer and periwound with soap and water at the VAC changes and to coil the foam into the ulcer to make sure that it is getting into the base of the ulcer. He finished his antibiotics, PICC was pulled. Encouraged to increase protein in his diet. Follow up two weeks. [id number]: [id number] Global Visit
[2019-12-09 12:12] VITALS: BP 168/94; PULSE 66; RESP 16; TEMP 36.8; BMI 25.7
--- NOTE | 2019-12-09 13:19 | PN.PCM_ITS ---
(1) Sacral decubitus ulcer, stage IV Status: Chronic Current Visit: Yes Code(s): L89.154 - Pressure ulcer of sacral region, stage 4 (2) Osteomyelitis of pelvis Status: Chronic Current Visit: Yes Code(s): M86.9 - Osteomyelitis, unspecified (3) History of pneumonia Status: Chronic Current Visit: Yes Code(s): Z87.01 - Personal history of pneumonia (recurrent) (4) Former smoker Status: Chronic Current Visit: Yes Code(s): Z87.891 - Personal history of nicotine dependence Type of Wound Date of Service: 12/09/19 Chief Complaint: pressure ulcer of sacrum/coccyx History of Wound: Jose is a very pleasant 69 yo gentleman who presents to the wound healing center for treatment of a pressure ulcer of his sacral area upon suggestion of his home health nurse. He was hospitalized on 08/23/2019 for bilateral pneumonia and exposure to COVID-19 and transferred from [place] to [facility] in [place] where he was intubated and in the ICU for he thinks approx. 2 weeks. He had pressure ulcer at the end of his hospital stay and reports that he was not turned while he was in the ICU and then was transferred to [facility] for another 10 days for strengthening and the physician at the Rehab facility did not examine the ulcer but prescribed optifoam dressing and when he was finally discharged home on 09/19/2019 he was prescribed to use Santyl and optifoam. He began receiving Home Health services this week and the nurse evaluated his sacral ulcer and felt it was likely infected and needed treatment and evaluation by a wound healing specialist and referred him to [facility] wound center. He reports that he and his have been using maxi pads and incontinence briefs to absorb the heavy drainage from the ulcer with changing up to 4 times/day. They have also been applying Santyl daily since he was discharged from rehab facility. He was started on doxycycline on 09/26/2019 by the supervising physician from Home Health. No cultures were taken of the ulcer. He denies any fever or chills, cough, dyspnea but admits to an odor and very heavy drainage and severe pain from his wound. He has been trying to offload his sacral area as it is very painful for him to lie on his back or sit because of the ulcer. Minimal hospital reports were received from [facility] that indicate that he was tested for multiple virus and bacterial causes of pneumonia, including coronaviruses but not COVID-19 specifically but based on his hospital course as he provides history and the imaging findings desccribed in the reports it is likely that he suffered from COVID-19 infection, although he does not exhibit any respiratory symptoms currently. Surgery 10/10/19 - Excision infected necrotic sacral pressure sore, Stage IV, with partial ostectomy for osteomyelitis. Surgical wound culture from 09/30/19 of soft tissue positive for Anaerobic cocci and Bacteroides thetaiotaomicron and from bone positive for Anaerobic cocci. Dr. Agee was consulted and he was placed on Ertapenem daily. Wound Care - Wound VAC. Will take a wound VAC holiday for a week and do daily silver dressing changes, will instruct his how to do dressing change so she can assist him. Today denies fever or chills. States appetite is good. Progress of Wound: Improved. - Physical Exam Vital Signs Temp Pulse Resp BP 98.3 F 66 16 168/94 H 12/09/19 12:12 12/09/19 12:12 12/09/19 12:12 12/09/19 12:12 General: Alert, Oriented x3, Cooperative HEENT: Atraumatic Oral: Moist Mucosa Lungs: Normal air movement Cardiovascular: Regular rate Extremities: Capillary Refill Less than 3 Seconds Skin: Ulcer/ Wound - sacral ulcer with granulation tissue present Wound Measurements and Assessment WC - Nurse 1 - General Ulcer Measurement Start: 11/25/19 13:17 Freq: Status: Active Protocol: Activity Type Activity Date Activity User E-Sign Co-Sign Detail Recorded Client Recorded Date Recorded By Document 12/09/19 12:12 [facility] [id number] 12/09/19 12:22 [facility] 12/09/19 12:12 Wound Center Nurse 1 [Ulcer Assessment] #1 Sacrum -Combined with other wound No -Current Size (cm) - Length 8.2 -Current Size (cm) - Width 3.6 -Current Size (cm) - Depth 0.5 -Total Square Cm 29.52 -Photo Taken No -Epithelialization Small 1-33% -Tunneling No -Undermining/Tunneling No -Circular Undermining No -Exudate Amt Medium -Exudate Type Sanguineous -Wound Margin Distinct, Outline Attached -Granulation Amt Large (67-100%) -Granulation Quality Red -Slough/Fibrin Yes -Necrosis Amt Small (1-33%) -Necrotic Tissue Type Adherent Slough -Structure Exposed Bone -Texture (Kori-wound Skin Appearance) Assessed -Moisture (Kori-wound Skin Appearance Assessed ) -Color (Kori-wound Skin Appearance) Assessed -Temperature (Kori-wound Skin No Abnormality Appearance) (Pt Warm) -Tenderness on Palpation (Kori-wound Yes Skin Appearance) -Ulcer Cleansing soapy water -Foul Odor after Cleansing No -Anesthetic Used 4% Lidocaine Solution - Nurse 2 - General Ulcer CM Notes Start: 11/25/19 13:17 Freq: Status: Active Protocol: Activity Type Activity Date Activity User E-Sign Co-Sign Detail Recorded Client Recorded Date Recorded By Document 12/09/19 12:56 [id number] 12/09/19 13:01 12/09/19 12:56 Wound Center Nurse 2 [Procedure/Treatment] -Time 12:56 -Correct Patient Yes -Correct Side, Site, Position Yes -Correct Procedure Yes -Procedure Performed Yes -Type of Procedure Debridement -Clinical Debridement Muscle -Post Debridement Size (cm) - Length 8.8 -Post Debridement Size (cm) - Width 4 -Post Debridement Size (cm) - Depth 0.8 -Total Square (cm) 35.2 -Wound/Ulcer Outcome Not Healed -Ulcer Cleansing Rinsed/ Irrigated with Saline -Foul Odor after Cleansing No -Bioengineered Tissue No -Bleeding Controlled with Pressure -Offloading No -Treatment Response Procedure Tolerated Well [See Physician Procedure note for Specifics] Pain Scale: 0-10 Numeric [Pain] -Is Patient Pain Free? Yes Musculoskeletal: No Tenderness to Palpation of Joints or Extremities Neurological: Cranial nerves II-XII grossly intact Psych/Mental Status: Normal Affect, Appropriate Debridement Note Post-Debridement Measurements/Treatment - Nurse 2 - General Ulcer CM Notes Start: 11/25/19 13:17 Freq: Status: Active Protocol: Activity Type Activity Date Activity User E-Sign Co-Sign Detail Recorded Client Recorded Date Recorded By Document 11/25/19 13:45 [id number] 11/25/19 13:50 Document 12/09/19 12:56 [id number] 12/09/19 13:01 11/25/19 12/09/19 13:45 12:56 Wound Center Nurse 2 #1 Sacrum -Time 13:47 12:56 -Correct Patient Yes Yes -Correct Side, Site, Position Yes Yes -Correct Procedure Yes Yes -Procedure Performed Yes Yes -Type of Procedure Debridement Debridement -Clinical Debridement Muscle Muscle -Post Debridement Size (cm) - Length 9.7 8.8 -Post Debridement Size (cm) - Width 4.5 4 -Post Debridement Size (cm) - Depth 1.6 0.8 -Total Square (cm) 43.65 35.2 -Wound/Ulcer Outcome Not Healed Not Healed -Ulcer Cleansing Rinsed/ Rinsed/ Irrigated with Irrigated with Saline Saline -Foul Odor after Cleansing No No -Bioengineered Tissue No No -Bleeding Controlled with Pressure Pressure -Other tunnel 2-3:00 2.3cm -Offloading No No -Treatment Response Procedure Procedure Tolerated Well Tolerated Well Pain Scale: 0-10 Numeric Is Patient Pain Free? Yes Yes Wound debrided: Sacral ulcer Type of Debridement: Excisional debridement Anesthesia Used: 5% Lidocaine Gel Depth: Down to and including healthy tissue, in the subcutaneous layer, to muscle Percentage of wound debrided: 100 Instrument Used: 7mm curette Tissue Removed: Subcutaneous tissue into the muscle Severity: Fat Layer Exposed Amount of bleeding with debridement: Mild Bleeding Controlled with: Pressure Patient tolerated procedure well Assessment/Plan Active Problems Former smoker (Chronic) History of pneumonia (Chronic) Osteomyelitis of pelvis (Chronic) Sacral decubitus ulcer, stage IV (Chronic) Assessment: Stage IV pressure ulcer of sacrum/coccyx - possible osteomyelitis. Cellulitis buttock. HTN. h/o bilateral pneumonia - likely COVID-19 - resolved Plan: Surgery 10/10/19 - Excision infected necrotic sacral pressure sore, Stage IV, with partial ostectomy for osteomyelitis. Surgical wound culture from 09/30/19 of soft tissue positive for Anaerobic cocci and Bacteroides thetaiotaomicron and from bone positive for Anaerobic cocci. Dr. Agee was consulted and he was placed on Ertapenem daily. Wound Care - Wound VAC. Will take one week vac holiday and do daily silver dressing changes. Will instruct his how to do dressing changes. Home health can restart the wound VAC next week. He finished his antibiotics, PICC was pulled. Encouraged to increase protein in his diet. Follow up two weeks. [id number]: [id number] Global Visit
== END 2019-12-13 23:59 ==
LOC: WC 11:30
PROVIDERS: PCP Internal Medicine Infectious Disease; Referring Provider Internal Medicine Infectious Disease; Visit Provider Nurse Practitioner Family
DX: L89.154 Pressure ulcer of sacral region, stage 4 (principal); Z87.01 Personal history of pneumonia (recurrent); Z87.891 Personal history of nicotine dependence; M46.28 Osteomyelitis of vertebra, sacral and sacrococcygeal region; I10 Essential (primary) hypertension; Z20.828 Contact with and (suspected) exposure to other viral communicable diseases
CPT/HCPCS: 11043; 11046; 97605

== ENCOUNTER 2020-01-13 10:30 | Outpatient (RCR) | payer MEDICARE, BC, SELFPAY ==
[2019-12-14 00:29] VITALS: BP 168/94; PULSE 66; RESP 16; TEMP 36.8
[2019-12-23 10:57] VITALS: BP 166/89; PULSE 61; RESP 16; TEMP 36.3; BMI 25.7
--- NOTE | 2019-12-23 15:48 | PN.PCM_ITS ---
(1) Sacral decubitus ulcer, stage IV Status: Chronic Code(s): L89.154 - Pressure ulcer of sacral region, stage 4 (2) Osteomyelitis of pelvis Status: Chronic Code(s): M86.9 - Osteomyelitis, unspecified (3) Former smoker Status: Chronic Code(s): Z87.891 - Personal history of nicotine dependence Type of Wound Date of Service: 12/23/19 Chief Complaint: pressure ulcer of sacrum/coccyx History of Wound: Jose is a very pleasant 69 yo gentleman who presents to the wound healing center for treatment of a pressure ulcer of his sacral area upon suggestion of his home health nurse. He was hospitalized on 08/23/2019 for bilateral pneumonia and exposure to COVID-19 and transferred from [place] to [facility] in [place] where he was intubated and in the ICU for he thinks approx. 2 weeks. He had pressure ulcer at the end of his hospital stay and reports that he was not turned while he was in the ICU and then was transferred to [facility] facility for another 10 days for strengthening and the physician at the Rehab facility did not examine the ulcer but prescribed optifoam dressing and when he was finally discharged home on 09/19/2019 he was prescribed to use Santyl and optifoam. He began receiving Home Health services this week and the nurse evaluated his sacral ulcer and felt it was likely infected and needed treatment and evaluation by a wound healing specialist and referred him to [facility] wound center. He reports that he and his have been using maxi pads and incontinence briefs to absorb the heavy drainage from the ulcer with changing up to 4 times/day. They have also been applying Santyl daily since he was discharged from rehab facility. He was started on doxycycline on 09/26/2019 by the supervising physician from Home Health. No cultures were taken of the ulcer. He denies any fever or chills, cough, dyspnea but admits to an odor and very heavy drainage and severe pain from his wound. He has been trying to offload his sacral area as it is very painful for him to lie on his back or sit because of the ulcer. Minimal hospital reports were received from [facility] that indicate that he was tested for multiple virus and bacterial causes of pneumonia, including coronaviruses but not COVID-19 specifically but based on his hospital course as he provides history and the imaging findings desccribed in the reports it is likely that he suffered from COVID-19 infection, although he does not exhibit any respiratory symptoms currently. Surgery 10/10/19 - Excision infected necrotic sacral pressure sore, Stage IV, with partial ostectomy for osteomyelitis. Surgical wound culture from 09/30/19 of soft tissue positive for Anaerobic cocci and Bacteroides thetaiotaomicron and from bone positive for Anaerobic cocci. Dr. Agee was consulted and he was placed on Ertapenem daily. Wound Care - Wound VAC. Will take a wound VAC holiday last week. Will restart the VAC today. Today denies fever or chills. States appetite is good. Progress of Wound: Improved. - Physical Exam Vital Signs Temp Pulse Resp BP 97.4 F L 61 16 166/89 H 12/23/19 10:57 12/23/19 10:57 12/23/19 10:57 12/23/19 10:57 General: Alert, Oriented x3, Cooperative HEENT: Atraumatic Oral: Moist Mucosa Lungs: Normal air movement Cardiovascular: Regular rate Extremities: Capillary Refill Less than 3 Seconds Skin: Ulcer/ Wound - Sacral ulcer, beefy pink into the muscle. There is still a small amount of bone exposure. There is granulation tissue present. Wound Measurements and Assessment WC - Nurse 1 - General Ulcer Measurement Start: 12/23/19 10:56 Freq: Status: Active Protocol: Activity Type Activity Date Activity User E-Sign Co-Sign Detail Recorded Client Recorded Date Recorded By Document 12/23/19 10:57 [facility] [id number] 12/23/19 11:10 [facility] 12/23/19 10:57 Wound Center Nurse 1 [Ulcer Assessment] #1 Sacrum -Combined with other wound No -Current Size (cm) - Length 7.2 -Current Size (cm) - Width 2.9 -Current Size (cm) - Depth 0.3 -Total Square Cm 20.88 -Photo Taken No -Epithelialization Small 1-33% -Tunneling No -Undermining/Tunneling No -Circular Undermining No -Exudate Amt Small -Exudate Type Serosanguineous -Wound Margin Distinct, Outline Attached -Granulation Amt Medium (34-66%) -Granulation Quality Hyper- granulation,Red -Slough/Fibrin Yes -Necrosis Amt Medium (34-66%) -Necrotic Tissue Type Adherent Slough -Structure Exposed Bone -Texture (Kori-wound Skin Appearance) Assessed, Scarring -Moisture (Kori-wound Skin Appearance Assessed ) -Color (Kori-wound Skin Appearance) Assessed -Temperature (Kori-wound Skin No Abnormality Appearance) (Pt Warm) -Tenderness on Palpation (Kori-wound No Skin Appearance) -Ulcer Cleansing soapy water -Foul Odor after Cleansing No -Anesthetic Used 4% Lidocaine Solution - Nurse 2 - General Ulcer CM Notes Start: 12/23/19 10:56 Freq: Status: Active Protocol: Activity Type Activity Date Activity User E-Sign Co-Sign Detail Recorded Client Recorded Date Recorded By Document 12/23/19 11:22 JF [id number] 12/23/19 11:24 JF 12/23/19 11:22 Wound Center Nurse 2 [Procedure/Treatment] -Time 11:22 -Correct Patient Yes -Correct Side, Site, Position Yes -Correct Procedure Yes -Procedure Performed Yes -Type of Procedure Debridement -Clinical Debridement Muscle -Post Debridement Size (cm) - Length 7.5 -Post Debridement Size (cm) - Width 3.5 -Post Debridement Size (cm) - Depth 0.6 -Total Square (cm) 26.25 -Wound/Ulcer Outcome Not Healed -Ulcer Cleansing Rinsed/ Irrigated with Saline -Foul Odor after Cleansing No -Bioengineered Tissue No -Bleeding Controlled with Pressure -Offloading No -Treatment Response Procedure Tolerated Well [See Physician Procedure note for Specifics] Pain Scale: 0-10 Numeric [Pain] -Is Patient Pain Free? Yes Musculoskeletal: No Tenderness to Palpation of Joints or Extremities Neurological: Cranial nerves II-XII grossly intact Psych/Mental Status: Normal Affect, Appropriate Debridement Note Post-Debridement Measurements/Treatment - Nurse 2 - General Ulcer CM Notes Start: 12/23/19 10:56 Freq: Status: Active Protocol: Activity Type Activity Date Activity User E-Sign Co-Sign Detail Recorded Client Recorded Date Recorded By Document 12/23/19 11:22 JF [id number] 12/23/19 11:24 12/23/19 11:22 Wound Center Nurse 2 #1 Sacrum -Time 11:22 -Correct Patient Yes -Correct Side, Site, Position Yes -Correct Procedure Yes -Procedure Performed Yes -Type of Procedure Debridement -Clinical Debridement Muscle -Post Debridement Size (cm) - Length 7.5 -Post Debridement Size (cm) - Width 3.5 -Post Debridement Size (cm) - Depth 0.6 -Total Square (cm) 26.25 -Wound/Ulcer Outcome Not Healed -Ulcer Cleansing Rinsed/ Irrigated with Saline -Foul Odor after Cleansing No -Bioengineered Tissue No -Bleeding Controlled with Pressure -Offloading No -Treatment Response Procedure Tolerated Well Pain Scale: 0-10 Numeric Is Patient Pain Free? Yes Wound debrided: Sacral ulcer Type of Debridement: Excisional debridement Anesthesia Used: 5% Lidocaine Gel Depth: Down to and including healthy tissue, in the subcutaneous layer, to mu scle Percentage of wound debrided: 100 Instrument Used: 5mm curette Tissue Removed: Subcutaneous tissue and slough into the muscle. Severity: Fat Layer Exposed Amount of bleeding with debridement: Mild Bleeding Controlled with: Pressure Patient tolerated procedure well Assessment/Plan Assessment: Stage IV pressure ulcer of sacrum/coccyx - possible osteomyelitis. Cellulitis buttock. HTN. h/o bilateral pneumonia - likely COVID-19 - resolved Plan: Surgery 10/10/19 - Excision infected necrotic sacral pressure sore, Stage IV, with partial ostectomy for osteomyelitis. Surgical wound culture from 09/30/19 of soft tissue positive for Anaerobic cocci and Bacteroides thetaiotaomicron and from bone positive for Anaerobic cocci. Dr. Agee was consulted and he was placed on Ertapenem daily. Wound Care - Wound VAC. Took one week vac holiday last week. Will restart the VAC. He finished his antibiotics, PICC was pulled. Encouraged to increase protein in his diet. Follow up two weeks. [id number]: [id number] Global Visit
[2019-12-30 11:11] VITALS: BP 178/116; PULSE 71; RESP 16; TEMP 36.6; BMI 25.7
--- NOTE | 2019-12-30 16:46 | PCM.WC.PN ---
Type of Wound Date of Service: 12/30/19 Chief Complaint: Sacral pressure sore, Stage IV. History of Wound: Surgery 09/30/19 - Excision infected necrotic sacral pressure sore, Stage IV, with partial ostectomy for osteomyelitis. Wound care - VAC. Operative culture - Anaerobic cocci and Bacteroides thetaiotamicron in the soft tissue and Anaerobic cocci in the bone. He was treated with IV Ertapenem and has finished them. Pathology - negative for osteomyelitis. Prealbumin from 09/29/19 was 18.9. Encourage nutritional supplementation with protein to help the healing process. CT Abdomen from 09/27/19 showed Soft tissue ulceration with extension into the right and left gluteus maximum muscle as with air. I suspect involvement of the distal coccygeal bony element.. Today he denies fever. His appetite is good. Progress of Wound: Improved. - Physical Exam Vital Signs Temp Pulse Resp BP 97.8 F 71 16 178/116 H 12/30/19 11:11 12/30/19 11:11 12/30/19 11:11 12/30/19 11:11 Wound Measurements and Assessment WC - Nurse 1 - General Ulcer Measurement Start: 12/23/19 10:56 Freq: Status: Active Protocol: Activity Type Activity Date Activity User E-Sign Co-Sign Detail Recorded Client Recorded Date Recorded By Document 12/30/19 11:11 MW [id number] 12/30/19 11:26 MW 12/30/19 11:11 Wound Center Nurse 1 [Ulcer Assessment] #1 Sacrum -Combined with other wound No -Current Size (cm) - Length 7.0 -Current Size (cm) - Width 3.5 -Current Size (cm) - Depth 0.5 -Total Square Cm 24.50 -Photo Taken No -Epithelialization Small 1-33% -Tunneling No -Undermining/Tunneling No -Circular Undermining No -Exudate Amt Medium -Exudate Type Serosanguineous -Wound Margin Flat & Intact -Granulation Amt Large (67-100%) -Granulation Quality Red -Slough/Fibrin Yes -Necrosis Amt Small (1-33%) -Necrotic Tissue Type Adherent Slough -Structure Exposed N/A -Texture (Kori-wound Skin Appearance) Assessed, Scarring -Moisture (Kori-wound Skin Appearance No Abnormality, ) Assessed -Temperature (Kori-wound Skin No Abnormality Appearance) (Pt Warm) -Tenderness on Palpation (Kori-wound Yes Skin Appearance) -Ulcer Cleansing soap and water -Foul Odor after Cleansing No -Anesthetic Used 5% Lidocaine Gel [Edema Assessment] -Lower Limb Edema Present No WC - Nurse 2 - General Ulcer CM Notes Start: 12/30/19 10:30 Freq: Status: Active Protocol: Activity Type Activity Date Activity User E-Sign Co-Sign Detail Recorded Client Recorded Date Recorded By Document 12/30/19 11:47 [id number] 12/30/19 11:50 12/30/19 11:47 Wound Center Nurse 2 [Procedure/Treatment] #1 Sacrum -Time 11:47 -Correct Patient Yes -Correct Side, Site, Position Yes -Correct Procedure Yes -Procedure Performed Yes -Type of Procedure Debridement -Clinical Debridement Muscle / Fascia -Tissue Removed Muscle -Post Debridement (cm) - Length 7.2 -Post Debridement (cm) - Width 3.4 -Post Debridement (cm) - Depth 0.6 -Total Square (Post) (cm) 24.48 -Area of Debridement (cm) - Length 7.2 -Area of Debridement (cm) - Width 3.4 -Total Square (Area) (cm) 24.48 -Tunneling No -Undermining/Tunneling No -Circular Undermining No -Ulcer Cleansing Rinsed/ Irrigated with Saline -Foul Odor after Cleansing No -Bioengineered Tissue No -Bleeding Controlled with Pressure -Offloading No -Treatment Response Procedure Tolerated Well -Debridement - Muscle / Fascia, 1st Yes 20sq cm -Debridement, Muscle/Fascia, ea addt' 1 l 20sq cm or part thereof [See Physician Procedure note for Specifics] Pain Scale: 0-10 Numeric [Pain] -Is Patient Pain Free? Yes Debridement Note Post-Debridement Measurements/Treatment WC - Nurse 2 - General Ulcer CM Notes Start: 12/30/19 10:30 Freq: Status: Active Protocol: Activity Type Activity Date Activity User E-Sign Co-Sign Detail Recorded Client Recorded Date Recorded By Document 12/30/19 11:47 [id number] 12/30/19 11:50 12/30/19 11:47 Wound Center Nurse 2 #1 Sacrum -Time 11:47 -Correct Patient Yes -Correct Side, Site, Position Yes -Correct Procedure Yes -Procedure Performed Yes -Type of Procedure Debridement -Clinical Debridement Muscle / Fascia -Tissue Removed Muscle -Post Debridement (cm) - Length 7.2 -Post Debridement (cm) - Width 3.4 -Post Debridement (cm) - Depth 0.6 -Total Square (Post) (cm) 24.48 -Area of Debridement (cm) - Length 7.2 -Area of Debridement (cm) - Width 3.4 -Total Square (Area) (cm) 24.48 -Tunneling No -Undermining/Tunneling No -Circular Undermining No -Ulcer Cleansing Rinsed/ Irrigated with Saline -Foul Odor after Cleansing No -Bioengineered Tissue No -Bleeding Controlled with Pressure -Offloading No -Treatment Response Procedure Tolerated Well -Debridement - Muscle / Fascia, 1st Yes 20sq cm -Debridement, Muscle/Fascia, ea addt'l 1 20sq cm or part thereof Pain Scale: 0-10 Numeric Is Patient Pain Free? Yes Wound debrided: #1 Sacral area. Laterality: Not Applicable Wound Grade/Stage: IV. Type of Debridement: Excisional debridement Anesthesia Used: 4% Lidocaine Solution Depth: Down to and including healthy tissue, in the subcutaneous layer, to muscle, to bone - bone is exposed but not debrided. Percentage of wound debrided: 100 Instrument Used: 7mm curette Tissue Removed: subcutaneous tissue and muscle. Severity: Fat Layer Exposed - muscle is exposed. bone is exposed but not debrided. Amount of bleeding with debridement: Mild Bleeding Controlled with: Pressure Patient tolerated procedure well, - - a wound culture was obtained today. Assessment/Plan Assessment: 1. Sacral pressure sore, Stage IV. 2. Clinical osteomyelitis. 3. Recent intubation for pneumonia. 4. Former smoker. Plan: Continue VAC to be changed three times per week at 150 mmHg continuous suction. He is currently off antibiotics. A wound culture was obtained today since we are considering wound closure. A positive culture will necessitate antibiotic therapy. Most of the pressure sore shows good granulation tissue. A small area of exposed bone remains. If granulation continues over the remaining bone, can consider skin grafting. If exposed bone remains, can consider closing the pressure sore with fasciocutaneous flaps since he is ambulatory. That would necessitate 6 weeks bedrest after surgery. Prealbumin from 09/29/19 was 18.9. Encourage nutritional supplementation with protein to help the healing process. Will consider possible skin grafting in 6-8 weeks. Patient was informed of the risks and complications of the procedure including alternatives to surgery. These were discussed with him personally. He voices understanding and wishes to proceed. Followup 2 weeks. [id number]: [id number] Eugenia musc/fascia 20 sq cm/< - ICD-10 - L89.154, M86.9, Z87.01, Z87.891 Add On Codes: 50244 Eugenia musc/fascia add-on - ICD-10 - L89.154, M86.9, Z87.01, Z87.891
[2020-01-13 10:19] VITALS: BP 163/103; PULSE 71; RESP 20; TEMP 36.4; BMI 25.7
--- NOTE | 2020-01-13 15:28 | PCM.WC.PN ---
(1) Sacral decubitus ulcer, stage IV Status: Chronic Code(s): L89.154 - Pressure ulcer of sacral region, stage 4 (2) Osteomyelitis of pelvis Status: Chronic Code(s): M86.9 - Osteomyelitis, unspecified (3) Former smoker Status: Chronic Code(s): Z87.891 - Personal history of nicotine dependence Type of Wound Date of Service: 01/13/20 Chief Complaint: Sacral pressure sore, Stage IV. History of Wound: Surgery 09/30/19 - Excision infected necrotic sacral pressure sore, Stage IV, with partial ostectomy for osteomyelitis. Wound care - VAC. Will take a VAC holiday to give the patient a break. Will have him do daily silver dressing changes. Operative culture - Anaerobic cocci and Bacteroides thetaiotamicron in the soft tissue and Anaerobic cocci in the bone. He was treated with IV Ertapenem and has finished them. Pathology - negative for osteomyelitis. Prealbumin from 09/29/19 was 18.9. Encourage nutritional supplementation with protein to help the healing process. CT Abdomen from 09/27/19 showed Soft tissue ulceration with extension into the right and left gluteus maximum muscle as with air. I suspect involvement of the distal coccygeal bony element.. Today he denies fever. His appetite is good. Progress of Wound: Stable. Some hypergranulation over the superior aspect of the ulcer. There is still bone exposed. - Physical Exam Vital Signs Temp Pulse Resp BP 97.6 F L 71 20 H 163/103 H 01/13/20 10:19 01/13/20 10:19 01/13/20 10:19 01/13/20 10:19 General: Alert, Oriented x3, Cooperative HEENT: Atraumatic Oral: Moist Mucosa Lungs: Normal air movement Cardiovascular: Regular rate Extremities: Capillary Refill Less than 3 Seconds Skin: Ulcer/ Wound - Sacral ulcer that is pink. There is some hypergranulation on the superior aspect of the ulcer. There is bone exposure in the 3 o'clock area. Wound Measurements and Assessment WC - Nurse 1 - General Ulcer Measurement Start: 12/23/19 10:56 Freq: Status: Active Protocol: Activity Type Activity Date Activity User E-Sign Co-Sign Detail Recorded Client Recorded Date Recorded By Document 01/13/20 10:19 DL [id number] 01/13/20 10:27 DL 01/13/20 10:19 Wound Center Nurse 1 [Ulcer Assessment] #1 Sacrum -Current Size (cm) - Length 5.6 -Current Size (cm) - Width 2.6 -Current Size (cm) - Depth 0.7 -Total Square Cm 14.56 -Photo Taken No -Exudate Amt Small -Exudate Type Serosanguineous -Wound Margin Distinct, Outline Attached -Granulation Amt Medium (34-66%) -Granulation Quality Tracy -Necrosis Amt Large (67-100%) -Necrotic Tissue Type Adherent Slough -Structure Exposed N/A -Texture (Kori-wound Skin Appearance) Scarring -Moisture (Kori-wound Skin Appearance No Abnormality ) -Color (Kori-wound Skin Appearance) No Abnormality -Temperature (Kori-wound Skin No Abnormality Appearance) (Pt Warm) -Tenderness on Palpation (Kori-wound No Skin Appearance) -Ulcer Cleansing Wound Cleanser -Foul Odor after Cleansing No -Anesthetic Used 4% Lidocaine Solution WC - Nurse 2 - General Ulcer CM Notes Start: 12/30/19 10:30 Freq: Status: Active Protocol: Activity Type Activity Date Activity User E-Sign Co-Sign Detail Recorded Client Recorded Date Recorded By Document 01/13/20 11:00 [id number] 01/13/20 11:04 01/13/20 11:00 Wound Center Nurse 2 [Procedure/Treatment] -Time 11:01 -Correct Patient Yes -Correct Side, Site, Position Yes -Correct Procedure Yes -Procedure Performed Yes -Type of Procedure Debridement -Clinical Debridement Muscle / Fascia -Tissue Removed Muscle -Post Debridement (cm) - Length 6.5 -Post Debridement (cm) - Width 3.0 -Post Debridement (cm) - Depth 0.5 -Total Square (Post) (cm) 19.50 -Area of Debridement (cm) - Length 6.5 -Area of Debridement (cm) - Width 3.0 -Total Square (Area) (cm) 19.50 -Tunneling No -Undermining/Tunneling No -Circular Undermining No -Wound/Ulcer Outcome Not Healed -Ulcer Cleansing Rinsed/ Irrigated with Saline -Foul Odor after Cleansing No -Bioengineered Tissue No -Bleeding Controlled with Pressure -Offloading No -Treatment Response Procedure Tolerated Well -Debridement - Muscle / Fascia, 1st Yes 20sq cm [See Physician Procedure note for Specifics] Pain Scale: 0-10 Numeric [Pain] -Is Patient Pain Free? Yes - Nurse 3 - General Ulcer D/C NN Start: 12/30/19 23:19 Freq: Status: Active Protocol: Activity Type Activity Date Activity User E-Sign Co-Sign Detail Recorded Client Recorded Date Recorded By Document 01/13/20 11:16 [facility] [id number] 01/13/20 11:17 [facility] 01/13/20 11:16 Wound Care Nurse 3 [Wound Dressing] #1 Sacrum -Ulcer Cleansing Rinsed/ Irrigated with Saline -Foul Odor after Cleansing No -Primary Dressing Applied Aquacel AG 4x4 -Primary Dressing Covered/Secured Dry Gauze, with Secured with Tape,Other -Other Covering abd -Aquacel AG 4x4 1 [Post Procedure Tolerated] -Treatment Response Procedure Tolerated Well Pain Scale: 0-10 Numeric [Pain] -Is Patient Pain Free? Yes - Visit Discharge [Visit Discharge Information] -Discharge Condition Stable -Ambulatory Status Ambulatory -Transportation Private Auto [Facility Notification] -Facility Type Home Health Musculoskeletal: No Tenderness to Palpation of Joints or Extremities Neurological: Cranial nerves II-XII grossly intact Psych/Mental Status: Normal Affect, Appropriate Debridement Note Post-Debridement Measurements/Treatment - Nurse 2 - General Ulcer CM Notes Start: 12/30/19 10:30 Freq: Status: Active Protocol: Activity Type Activity Date Activity User E-Sign Co-Sign Detail Recorded Client Recorded Date Recorded By Document 12/30/19 11:47 [id number] 12/30/19 11:50 Document 01/13/20 11:00 [id number] 01/13/20 11:04 12/30/19 01/13/20 11:47 11:00 Wound Center Nurse 2 #1 Sacrum -Time 11:47 11:01 -Correct Patient Yes Yes -Correct Side, Site, Position Yes Yes -Correct Procedure Yes Yes -Procedure Performed Yes Yes -Type of Procedure Debridement Debridement -Clinical Debridement Muscle / Fascia Muscle / Fascia -Tissue Removed Muscle Muscle -Post Debridement (cm) - Length 7.2 6.5 -Post Debridement (cm) - Width 3.4 3.0 -Post Debridement (cm) - Depth 0.6 0.5 -Total Square (Post) (cm) 24.48 19.50 -Area of Debridement (cm) - Length 7.2 6.5 -Area of Debridement (cm) - Width 3.4 3.0 -Total Square (Area) (cm) 24.48 19.50 -Tunneling No No -Undermining/Tunneling No No -Circular Undermining No No -Wound/Ulcer Outcome Not Healed -Ulcer Cleansing Rinsed/ Rinsed/ Irrigated with Irrigated with Saline Saline -Foul Odor after Cleansing No No -Bioengineered Tissue No No -Bleeding Controlled with Pressure Pressure -Offloading No No -Treatment Response Procedure Procedure Tolerated Well Tolerated Well -Debridement - Muscle / Fascia, 1st Yes Yes 20sq cm -Debridement, Muscle/Fascia, ea addt'l 1 20sq cm or part thereof Pain Scale: 0-10 Numeric Is Patient Pain Free? Yes Yes - Nurse 3 - General Ulcer D/C NN Start: 12/30/19 23:19 Freq: Status: Active Protocol: Activity Type Activity Date Activity User E-Sign Co-Sign Detail Recorded Client Recorded Date Recorded By Document 01/13/20 11:16 [facility] [id number] 01/13/20 11:17 [facility] 01/13/20 11:16 Wound Care Nurse 3 #1 Sacrum -Ulcer Cleansing Rinsed/ Irrigated with Saline -Foul Odor after Cleansing No -Primary Dressing Applied Aquacel AG 4x4 -Primary Dressing Covered/Secured with Dry Gauze, Secured with Tape,Other -Other Covering abd -Aquacel AG 4x4 1 Treatment Response Procedure Tolerated Well Pain Scale: 0-10 Numeric Is Patient Pain Free? Yes - Visit Discharge Discharge Condition Stable Ambulatory Status Ambulatory Transportation [facility] Facility Type Home Health Wound debrided: sacral ulcer Type of Debridement: Excisional debridement Anesthesia Used: 5% Lidocaine Gel Depth: Down to and including healthy tissue, in the subcutaneous layer, to muscle Percentage of wound debrided: 100 Instrument Used: 5mm curette Tissue Removed: Subcutaneous tissue and slough into the muscle with bone exposure. Severity: Fat Layer Exposed Amount of bleeding with debridement: Mild Bleeding Controlled with: Pressure Patient tolerated procedure well Assessment/Plan Assessment: 1. Sacral pressure sore, Stage IV. 2. Clinical osteomyelitis. 3. Recent intubation for pneumonia. 4. Former smoker. Plan: Will take a VAC holiday to give the patient a break. Will have him do daily silver dressing changes. Wound culture from 12/30/19 was postive for Enterococcus fecalis, Corynebacterium striatum and Fusobacterium nucleatum. He is taking Augmentin to treat the wound cultures. Most of the pressure sore shows good granulation tissue. A small area of exposed bone remains. If granulation continues over the remaining bone, can consider skin grafting. If exposed bone remains, can consider closing the pressure sore with fasciocutaneous flaps since he is ambulatory. That would necessitate 6 weeks bedrest after surgery. Prealbumin from 09/29/19 was 18.9. Encourage nutritional supplementation with protein to help the healing process. Will consider possible skin grafting in 6-8 weeks. Patient was informed of the risks and complications of the procedure including alternatives to surgery. These were discussed with him personally. He voices understanding and wishes to proceed. Followup 2 weeks. [id number]: [id number] Eugenia musc/fascia 20 sq cm/<
== END 2020-01-13 23:59 ==
LOC: WC 10:30
PROVIDERS: PCP Internal Medicine Infectious Disease; Referring Provider Internal Medicine Infectious Disease; Visit Provider Nurse Practitioner Family
DX: L89.154 Pressure ulcer of sacral region, stage 4 (principal); Z87.891 Personal history of nicotine dependence; M46.28 Osteomyelitis of vertebra, sacral and sacrococcygeal region; Z20.828 Contact with and (suspected) exposure to other viral communicable diseases; Z87.01 Personal history of pneumonia (recurrent); I10 Essential (primary) hypertension; L03.317 Cellulitis of buttock
CPT/HCPCS: 11043; 11046; 87070; 87075; 87076; 87077; 87186; 87205; 97605

== ENCOUNTER 2020-02-10 10:45 | Outpatient (RCR) | payer MEDICARE, BC, SELFPAY ==
[2020-01-14 00:34] VITALS: BP 163/103; PULSE 71; RESP 20; TEMP 36.4
[2020-01-27 10:48] VITALS: BP 160/70; PULSE 63; RESP 16; TEMP 36.1; BMI 25.7
--- NOTE | 2020-01-27 13:14 | PN.PCM_ITS ---
Type of Wound Date of Service: 01/27/20 Chief Complaint: Sacral pressure sore, Stage IV. History of Wound: Surgery 09/30/19 - Excision infected necrotic sacral pressure sore, Stage IV, with partial ostectomy for osteomyelitis. Wound care - Silver. Operative culture - Anaerobic cocci and Bacteroides thetaiotamicron in the soft tissue and Anaerobic cocci in the bone. He was treated with IV Ertapenem and has finished them. Another wound culture was obtained on 12/30/19. It showed Enterococcus fecalis, Corynebacterium striatum and Fusobacterium nucleatum. He was placed on Augmentin and is finishing them. Pathology - negative for osteomyelitis. Prealbumin from 09/29/19 was 18.9. Encourage nutritional supplementation with protein to help the healing process. CT Abdomen from 09/27/19 showed Soft tissue ulceration with extension into the right and left gluteus maximum muscle as with air. I suspect involvement of the distal coccygeal bony element.. Today he denies fever. His appetite is good. Progress of Wound: Improved. - Physical Exam Vital Signs Temp Pulse Resp BP 96.9 F L 63 16 160/70 H 01/27/20 10:48 01/27/20 10:48 01/27/20 10:48 01/27/20 10:48 Wound Measurements and Assessment WC - Nurse 1 - General Ulcer Measurement Start: 01/27/20 10:48 Freq: Status: Active Protocol: Activity Type Activity Date Activity User E-Sign Co-Sign Detail Recorded Client Recorded Date Recorded By Document 01/27/20 10:48 [facility] [id number] 01/27/20 10:57 [facility] 01/27/20 10:48 Wound Center Nurse 1 [Ulcer Assessment] #1 Sacrum -Combined with other wound No -Current Size (cm) - Length 5.2 -Current Size (cm) - Width 2.6 -Current Size (cm) - Depth 0.2 -Total Square Cm 13.52 -Photo Taken No -Epithelialization Small 1-33% -Tunneling No -Undermining/Tunneling No -Circular Undermining No -Exudate Amt Small -Exudate Type Serosanguineous -Wound Margin Distinct, Outline Attached -Granulation Amt Medium (34-66%) -Granulation Quality Pale,Red -Slough/Fibrin Yes -Necrosis Amt Small (1-33%) -Necrotic Tissue Type Adherent Slough -Texture (Kori-wound Skin Appearance) Assessed, Scarring -Moisture (Kori-wound Skin Appearance Assessed ) -Color (Kori-wound Skin Appearance) Assessed -Temperature (Kori-wound Skin No Abnormality Appearance) (Pt Warm) -Tenderness on Palpation (Kori-wound No Skin Appearance) -Ulcer Cleansing Rinsed/ Irrigated with Saline -Foul Odor after Cleansing No -Anesthetic Used 4% Lidocaine Solution BAM - Nurse 2 - General Ulcer CM Notes Start: 01/27/20 10:48 Freq: Status: Active Protocol: Activity Type Activity Date Activity User E-Sign Co-Sign Detail Recorded Client Recorded Date Recorded By Document 01/27/20 11:22 [id number] 01/27/20 11:23 01/27/20 11:22 Wound Center Nurse 2 [Procedure/Treatment] -Correct Patient Yes -Correct Side, Site, Position Yes -Correct Procedure Yes -Procedure Performed Yes -Type of Procedure Debridement -Clinical Debridement Muscle / Fascia -Tissue Removed Muscle -Post Debridement (cm) - Length 4.7 -Post Debridement (cm) - Width 2.6 -Post Debridement (cm) - Depth 0.5 -Total Square (Post) (cm) 12.22 -Area of Debridement (cm) - Length 4.7 -Area of Debridement (cm) - Width 2.6 -Total Square (Area) (cm) 12.22 -Tunneling No -Undermining/Tunneling No -Circular Undermining No -Wound/Ulcer Outcome Not Healed -Ulcer Cleansing Rinsed/ Irrigated with Saline -Foul Odor after Cleansing No -Bioengineered Tissue No -Bleeding Controlled with Pressure -Offloading No -Treatment Response Procedure Tolerated Well -Debridement - Muscle / Fascia, 1st Yes 20sq cm [See Physician Procedure note for Specifics] Pain Scale: 0-10 Numeric [Pain] -Is Patient Pain Free? Yes - Nurse 3 - General Ulcer D/C NN Start: 01/27/20 10:48 Freq: Status: Active Protocol: Activity Type Activity Date Activity User E-Sign Co-Sign Detail Recorded Client Recorded Date Recorded By Document 01/27/20 11:41 [facility] [id number] 01/27/20 11:41 [facility] 01/27/20 11:41 Wound Care Nurse 3 [Wound Dressing] #1 Sacrum -Ulcer Cleansing Rinsed/ Irrigated with Saline -Foul Odor after Cleansing No -Primary Dressing Applied Aquacel AG 4x4 -Primary Dressing Covered/Secured Dry Gauze, with Secured with Tape -Aquacel AG 4x4 1 [Post Procedure Tolerated] -Treatment Response Procedure Tolerated Well Pain Scale: 0-10 Numeric [Pain] -Is Patient Pain Free? Yes - Visit Discharge [Visit Discharge Information] -Discharge Condition Stable -Ambulatory Status Ambulatory -Transportation Private Auto -Accompanied by [Facility Notification] -Facility Type Home Health Debridement Note Post-Debridement Measurements/Treatment WC - Nurse 2 - General Ulcer CM Notes Start: 01/27/20 10:48 Freq: Status: Active Protocol: Activity Type Activity Date Activity User E-Sign Co-Sign Detail Recorded Client Recorded Date Recorded By Document 01/27/20 11:22 [id number] 01/27/20 11:23 01/27/20 11:22 Wound Center Nurse 2 #1 Sacrum -Correct Patient Yes -Correct Side, Site, Position Yes -Correct Procedure Yes -Procedure Performed Yes -Type of Procedure Debridement -Clinical Debridement Muscle / Fascia -Tissue Removed Muscle -Post Debridement (cm) - Length 4.7 -Post Debridement (cm) - Width 2.6 -Post Debridement (cm) - Depth 0.5 -Total Square (Post) (cm) 12.22 -Area of Debridement (cm) - Length 4.7 -Area of Debridement (cm) - Width 2.6 -Total Square (Area) (cm) 12.22 -Tunneling No -Undermining/Tunneling No -Circular Undermining No -Wound/Ulcer Outcome Not Healed -Ulcer Cleansing Rinsed/ Irrigated with Saline -Foul Odor after Cleansing No -Bioengineered Tissue No -Bleeding Controlled with Pressure -Offloading No -Treatment Response Procedure Tolerated Well -Debridement - Muscle / Fascia, 1st Yes 20sq cm Pain Scale: 0-10 Numeric Is Patient Pain Free? Yes - Nurse 3 - General Ulcer D/C NN Start: 01/27/20 10:48 Freq: Status: Active Protocol: Activity Type Activity Date Activity User E-Sign Co-Sign Detail Recorded Client Recorded Date Recorded By Document 01/27/20 11:41 [facility] [id number] 01/27/20 11:41 [facility] 01/27/20 11:41 Wound Care Nurse 3 #1 Sacrum -Ulcer Cleansing Rinsed/ Irrigated with Saline -Foul Odor after Cleansing No -Primary Dressing Applied Aquacel AG 4x4 -Primary Dressing Covered/Secured with Dry Gauze, Secured with Tape -Aquacel AG 4x4 1 Treatment Response Procedure Tolerated Well Pain Scale: 0-10 Numeric Is Patient Pain Free? Yes WC - Visit Discharge Discharge Condition Stable Ambulatory Status Ambulatory Transportation Private Auto Accompanied by Facility Type Home Health Wound debrided: #1 Sacral area. Laterality: Not Applicable Wound Grade/Stage: IV. Type of Debridement: Excisional debridement Anesthesia Used: 4% Lidocaine Solution Depth: in the subcutaneous layer, to muscle, to bone - small amount of bone exposed but not debrided. Percentage of wound debrided: 100 Instrument Used: 5mm curette Tissue Removed: subcutaneous tissue and muscle. Severity: Fat Layer Exposed - muscle is exposed. small amount of bone exposed but not debrided. Amount of bleeding with debridement: Mild Bleeding Controlled with: Pressure Patient tolerated procedure well Assessment/Plan Assessment: 1. Sacral pressure sore, Stage IV. 2. Clinical osteomyelitis. 3. Recent intubation for pneumonia. 4. Former smoker. Plan: Continue Silver dressing changes daily. Will stop the VAC. Wound culture from 12/30/19 was postive for Enterococcus fecalis, Corynebacterium striatum and Fusobacterium nucleatum. He was placed on Augmentin and is finishing them. Most of the pressure sore shows good granulation tissue. A small area of exposed bone remains, less than his last visit. If granulation continues over the remaining bone, can consider skin grafting. If exposed bone remains, can consider closing the pressure sore with fasciocutaneous flaps since he is ambulatory. That would necessitate 6 weeks bedrest after surgery. Prealbumin from 09/29/19 was 18.9. Encourage nutritional supplementation with protein to help the healing process. Will consider possible skin grafting in 6- 8 weeks. Patient was informed of the risks and complications of the procedure including alternatives to surgery. These were discussed with him personally. He voices understanding and wishes to proceed. If an autograft is done, would place a VAC postoperatively for a week to help with compression of the graft to promote neovascularization. In the meantime, we can apply for an advanced skin product such as Epicord which is a placental connective tissue product. Followup 2 weeks. [id number]: [id number] Eugenia musc/fascia 20 sq cm/< - ICD-10 - L89.154, M86.9, Z87.01, Z87.891 116xx: - ICD-10 - L89.154, M86.9, Z87.01, Z87.891
[2020-02-10 10:39] VITALS: BP 182/99; PULSE 60; RESP 16; TEMP 35.2; BMI 25.7
[2020-02-10 11:48] VITALS: RESP 16
--- NOTE | 2020-02-10 13:05 | PN.PCM_ITS ---
Type of Wound Date of Service: 02/10/20 Chief Complaint: Sacral pressure sore, Stage IV. History of Wound: Surgery 09/30/19 - Excision infected necrotic sacral pressure sore, Stage IV, with partial ostectomy for osteomyelitis. Wound care - Silver. Operative culture - Anaerobic cocci and Bacteroides thetaiotamicron in the soft tissue and Anaerobic cocci in the bone. He was treated with IV Ertapenem and has finished them. Another wound culture was obtained on 12/30/19. It showed Enterococcus fecalis, Corynebacterium striatum and Fusobacterium nucleatum. He was placed on Augmentin and has finished them. Pathology - negative for osteomyelitis. Prealbumin from 09/29/19 was 18.9. Encourage nutritional supplementation with protein to help the healing process. CT Abdomen from 09/27/19 showed Soft tissue ulceration with extension into the right and left gluteus maximum muscle as with air. I suspect involvement of the distal coccygeal bony element.. Today he denies fever. His appetite is good. Progress of Wound: Improved. - Physical Exam Vital Signs Temp Pulse Resp BP 95.4 F L 60 16 182/99 H 02/10/20 10:39 02/10/20 10:39 02/10/20 11:48 02/10/20 10:39 Wound Measurements and Assessment WC - Nurse 1 - General Ulcer Measurement Start: 01/27/20 10:48 Freq: Status: Active Protocol: Activity Type Activity Date Activity User E-Sign Co-Sign Detail Recorded Client Recorded Date Recorded By Document 02/10/20 10:39 [facility] [id number] 02/10/20 10:48 [facility] 02/10/20 10:39 Wound Center Nurse 1 [Ulcer Assessment] #1 Sacrum -Combined with other wound No -Current Size (cm) - Length 3.6 -Current Size (cm) - Width 2.3 -Current Size (cm) - Depth 0.1 -Total Square Cm 8.28 -Photo Taken No -Epithelialization Small 1-33% -Tunneling No -Undermining/Tunneling No -Circular Undermining No -Exudate Amt Medium -Exudate Type Serosanguineous -Wound Margin Distinct, Outline Attached -Granulation Amt Medium (34-66%) -Granulation Quality Pale,Red -Slough/Fibrin Yes -Necrosis Amt Medium (34-66%) -Necrotic Tissue Type Adherent Slough -Texture (Kori-wound Skin Appearance) Assessed, Scarring -Moisture (Kori-wound Skin Appearance Assessed ) -Color (Kori-wound Skin Appearance) Assessed, Erythema -Temperature (Kori-wound Skin No Abnormality Appearance) (Pt Warm) -Tenderness on Palpation (Kori-wound No Skin Appearance) -Ulcer Cleansing Rinsed/ Irrigated with Saline -Foul Odor after Cleansing No -Anesthetic Used 4% Lidocaine Solution WC - Nurse 2 - General Ulcer CM Notes Start: 01/27/20 10:48 Freq: Status: Active Protocol: Activity Type Activity Date Activity User E-Sign Co-Sign Detail Recorded Client Recorded Date Recorded By Document 02/10/20 11:28 [id number] 02/10/20 11:36 02/10/20 11:28 Wound Center Nurse 2 [Procedure/Treatment] -Time 11:28 -Correct Patient Yes -Correct Side, Site, Position Yes -Correct Procedure Yes -Procedure Performed Yes -Type of Procedure Debridement -Clinical Debridement Subcutaneous -Tissue Removed Subcutaneous -Post Debridement (cm) - Length 3.6 -Post Debridement (cm) - Width 2.4 -Post Debridement (cm) - Depth 0.1 -Total Square (Post) (cm) 8.64 -Area of Debridement (cm) - Length 3.6 -Area of Debridement (cm) - Width 2.4 -Total Square (Area) (cm) 8.64 -Tunneling No -Undermining/Tunneling No -Circular Undermining No -Wound/Ulcer Outcome Not Healed -Bioengineered Tissue Yes -Type of Bioengineered Tissue Epicord -Expiration Date 10/13/24 -Product Lot Number [id number] -Percent Used 100 -Saline Lot Number [id number] -Bleeding Controlled with Pressure -Offloading No -Treatment Response Procedure Tolerated Well -Debridement - Subq, 1st 20sq cm No -Apply Skin Sub - 1st 25 sq cm - Legs 1 -Epicord (per sq cm) 6 [See Physician Procedure note for Specifics] Pain Scale: 0-10 Numeric [Pain] -Is Patient Pain Free? Yes BAM - Nurse 3 - General Ulcer D/C NN Start: 01/27/20 10:48 Freq: Status: Active Protocol: Activity Type Activity Date Activity User E-Sign Co-Sign Detail Recorded Client Recorded Date Recorded By Document 02/10/20 11:48 [facility] [id number] 02/10/20 11:49 [facility] 02/10/20 11:48 Wound Care Nurse 3 [Wound Dressing] #1 Sacrum -Primary Dressing Applied Other -Primary Dressing Covered/Secured Other with -Other Covering epicord per dr lee [Post Procedure Tolerated] -Treatment Response Procedure Tolerated Well Vital Signs [Respirations] -Respiratory Rate (12-18) 16 -Respiratory rate source Observation -Oxygen Delivery Method Room Air Pain Scale: 0-10 Numeric [Pain] -Is Patient Pain Free? Yes - Visit Discharge [Visit Discharge Information] -Discharge Condition Stable -Ambulatory Status Ambulatory -Transportation Private Auto -Accompanied by [Facility Notification] -Facility Type Home Health Debridement Note Post-Debridement Measurements/Treatment - Nurse 2 - General Ulcer CM Notes Start: 01/27/20 10:48 Freq: Status: Active Protocol: Activity Type Activity Date Activity User E-Sign Co-Sign Detail Recorded Client Recorded Date Recorded By Document 01/27/20 11:22 [id number] 01/27/20 11:23 Document 02/10/20 11:28 [id number] 02/10/20 11:36 01/27/20 02/10/20 11:22 11:28 Wound Center Nurse 2 #1 Sacrum -Time 11:28 -Correct Patient Yes Yes -Correct Side, Site, Position Yes Yes -Correct Procedure Yes Yes -Procedure Performed Yes Yes -Type of Procedure Debridement Debridement -Clinical Debridement Muscle / Fascia Subcutaneous -Tissue Removed Muscle Subcutaneous -Post Debridement (cm) - Length 4.7 3.6 -Post Debridement (cm) - Width 2.6 2.4 -Post Debridement (cm) - Depth 0.5 0.1 -Total Square (Post) (cm) 12.22 8.64 -Area of Debridement (cm) - Length 4.7 3.6 -Area of Debridement (cm) - Width 2.6 2.4 -Total Square (Area) (cm) 12.22 8.64 -Tunneling No No -Undermining/Tunneling No No -Circular Undermining No No -Wound/Ulcer Outcome Not Healed Not Healed -Ulcer Cleansing Rinsed/ Irrigated with Saline -Foul Odor after Cleansing No -Bioengineered Tissue No Yes -Type of Bioengineered Tissue Epicord -Expiration Date 10/13/24 -Product Lot Number [id number] -Percent Used 100 -Saline Lot Number [id number] -Bleeding Controlled with Pressure Pressure -Offloading No No -Treatment Response Procedure Procedure Tolerated Well Tolerated Well -Debridement - Subq, 1st 20sq cm No -Debridement - Muscle / Fascia, 1st Yes 20sq cm -Apply Skin Sub - 1st 25 sq cm - Legs 1 -Epicord (per sq cm) 6 Pain Scale: 0-10 Numeric Is Patient Pain Free? Yes Yes WC - Nurse 3 - General Ulcer D/C NN Start: 01/27/20 10:48 Freq: Status: Active Protocol: Activity Type Activity Date Activity User E-Sign Co-Sign Detail Recorded Client Recorded Date Recorded By Document 01/27/20 11:41 [facility] [id number] 01/27/20 11:41 BM Document 02/10/20 11:48 [facility] [id number] 02/10/20 11:49 [facility] 01/27/20 02/10/20 11:41 11:48 Wound Care Nurse 3 #1 Sacrum -Ulcer Cleansing Rinsed/ Irrigated with Saline -Foul Odor after Cleansing No -Primary Dressing Applied Aquacel AG 4x4 Other -Primary Dressing Covered/Secured with Dry Gauze, Other Secured with Tape -Other Covering epicord per dr lee -Aquacel AG 4x4 1 Treatment Response Procedure Procedure Tolerated Well Tolerated Well Pain Scale: 0-10 Numeric Is Patient Pain Free? Yes Yes Vital Signs Respiratory Rate (12-18) 16 Respiratory rate source Observation Oxygen Delivery Method Room Air WC - Visit Discharge Discharge Condition Stable Stable Ambulatory Status Ambulatory Ambulatory Transportation Private Auto Private Auto Accompanied by Facility Type Home Health Home Health Wound debrided: #1 Sacral area. Laterality: Not Applicable Wound Grade/Stage: IV. Type of Debridement: Excisional debridement Anesthesia Used: 4% Lidocaine Solution Depth: Down to and including healthy tissue, in the subcutaneous layer - bone has been covered with granulation tissue. Percentage of wound debrided: 100 Instrument Used: 3mm curette Tissue Removed: subcutaneous tissue. Severity: Fat Layer Exposed Amount of bleeding with debridement: Mild Bleeding Controlled with: Pressure Patient tolerated procedure well, - - Applied Epicord #1 today. Expiration - 10/13/24. Lot Number - [id number]. % used - 100%. Saline Lot Number - [id number]. Assessment/Plan Assessment: 1. Sacral pressure sore, Stage IV. 2. Clinical osteomyelitis. 3. Recent intubation for pneumonia. 4. Former smoker. Plan: Applied Epicord #1 today. Wound culture from 12/30/19 was postive for Enterococcus fecalis, Corynebacterium striatum and Fusobacterium nucleatum. He was placed on Augmentin and has finished them. Prealbumin from 09/29/19 was 18.9. Encourage nutritional supplementation with protein to help the healing process. Followup one week. [id number]: [id number] Skin sub graft trnk/arm/leg - ICD-10 - L89.154, M86.9, Z87.01, Z87.891
== END 2020-02-12 23:59 | disposition home or self-care (01) ==
LOC: WC 10:45
PROVIDERS: PCP Internal Medicine Infectious Disease; Referring Provider Internal Medicine Infectious Disease; Visit Provider Nurse Practitioner Family
CPT/HCPCS: 11043; 15271; Q4187

== ENCOUNTER 2020-03-09 13:30 | Outpatient (RCR) | payer MEDICARE, BC, SELFPAY ==
[2020-02-13 00:31] VITALS: BP 182/99; PULSE 60; RESP 16; TEMP 35.2
[2020-02-17 11:24] VITALS: BP 147/75; PULSE 63; RESP 16; TEMP 36.1; BMI 25.7
[2020-02-17 11:56] VITALS: BP 160/106; PULSE 65
--- NOTE | 2020-02-19 08:46 | PN.PCM_ITS ---
(1) Sacral decubitus ulcer, stage IV Status: Chronic Current Visit: Yes Code(s): L89.154 - Pressure ulcer of sacral region, stage 4 (2) Osteomyelitis of pelvis Status: Chronic Current Visit: Yes Code(s): M86.9 - Osteomyelitis, unspecified (3) Former smoker Status: Chronic Current Visit: No Code(s): Z87.891 - Personal history of nicotine dependence Type of Wound Date of Service: 02/17/20 Chief Complaint: Sacral pressure sore, Stage IV. History of Wound: Surgery 09/30/19 - Excision infected necrotic sacral pressure sore, Stage IV, with partial ostectomy for osteomyelitis. Wound care - Silver. Operative culture - Anaerobic cocci and Bacteroides thetaiotamicron in the soft tissue and Anaerobic cocci in the bone. He was treated with IV Ertapenem and has finished them. Another wound culture was obtained on 12/30/19. It showed Enterococcus fecalis, Corynebacterium striatum and Fusobacterium nucleatum. He was placed on Augmentin and has finished them. Pathology - negative for osteomyelitis. Prealbumin from 09/29/19 was 18.9. Encourage nutritional supplementation with protein to help the healing process. CT Abdomen from 09/27/19 showed Soft tissue ulceration with extension into the right and left gluteus maximum muscle as with air. I suspect involvement of the distal coccygeal bony element.. Today he denies fever. His appetite is good. Progress of Wound: Patient's wound is improved. Epicord was well-tolerated. The patient denies any fever, chills, nausea, vomiting, or diarrhea. Denies any signs of infection, including increasing pain, redness, swelling, or purulent/malodorous drainage from affected area. - Physical Exam Vital Signs Temp Pulse Resp BP 97 F L 65 16 160/106 H 02/17/20 11:24 02/17/20 11:56 02/17/20 11:24 02/17/20 11:56 General: Alert, Cooperative, No apparent distress HEENT: Atraumatic, Normocephalic Oral: Moist Mucosa Neck: Supple, Trachea Midline Lungs: Normal air movement Extremities: Capillary Refill Less than 3 Seconds Skin: Ulcer/ Wound - Sacral ulcer with good granulation tissue. No jose-ulcer erythema, edema, warmth, or tenderness. No purulent/malodorous drainage. Wound Measurements and Assessment WC - Nurse 1 - General Ulcer Measurement Start: 02/17/20 11:24 Freq: Status: Active Protocol: Activity Type Activity Date Activity User E-Sign Co-Sign Detail Recorded Client Recorded Date Recorded By Document 02/17/20 11:24 [facility] [id number] 02/17/20 11:31 [facility] 02/17/20 11:24 Wound Center Nurse 1 [Ulcer Assessment] #1 Sacrum -Combined with other wound No -Current Size (cm) - Length 3 -Current Size (cm) - Width 2 -Current Size (cm) - Depth 0.1 -Total Square Cm 6 -Photo Taken No -Epithelialization None Present -Tunneling No -Undermining/Tunneling No -Circular Undermining No -Exudate Amt Medium -Exudate Type Serosanguineous -Wound Margin Distinct, Outline Attached -Granulation Amt None Present (0 %) -Slough/Fibrin Yes -Necrosis Amt Large (67-100%) -Necrotic Tissue Type Adherent Slough -Texture (Jose-wound Skin Appearance) Assessed, Scarring -Moisture (Jose-wound Skin Appearance Assessed,Dry/ ) Scaly -Color (Jose-wound Skin Appearance) Assessed -Temperature (Jose-wound Skin No Abnormality Appearance) (Pt Warm) -Tenderness on Palpation (Jose-wound No Skin Appearance) -Ulcer Cleansing SOAPY WATER -Foul Odor after Cleansing No -Anesthetic Used 4% Lidocaine Solution - Nurse 2 - General Ulcer CM Notes Start: 02/17/20 11:24 Freq: Status: Active Protocol: Activity Type Activity Date Activity User E-Sign Co-Sign Detail Recorded Client Recorded Date Recorded By Document 02/17/20 11:37 [id number] 02/17/20 11:46 02/17/20 11:37 Wound Center Nurse 2 [Procedure/Treatment] -Time 11:38 -Correct Patient Yes -Correct Side, Site, Position Yes -Correct Procedure Yes -Procedure Performed Yes -Type of Procedure Debridement -Clinical Debridement Subcutaneous -Tissue Removed Subcutaneous -Post Debridement (cm) - Length 3.2 -Post Debridement (cm) - Width 2.2 -Post Debridement (cm) - Depth 0.2 -Total Square (Post) (cm) 7.04 -Area of Debridement (cm) - Length 3.2 -Area of Debridement (cm) - Width 2.2 -Total Square (Area) (cm) 7.04 -Tunneling No -Undermining/Tunneling No -Circular Undermining No -Wound/Ulcer Outcome Not Healed -Ulcer Cleansing Rinsed/ Irrigated with Saline -Foul Odor after Cleansing No -Bioengineered Tissue Yes -Type of Bioengineered Tissue Epifix Mesh -Expiration Date 10/13/24 -Product Lot Number [id number] -Percent Used 100 -Saline Lot Number [id number] -Bleeding Controlled with Pressure -Offloading No -Treatment Response Procedure Tolerated Well -Debridement - Subq, 1st 20sq cm No -Apply Skin Sub - 1st 25 sq cm - Legs 1 -Epifix Mesh (per sq cm) 6 [See Physician Procedure note for Specifics] Pain Scale: 0-10 Numeric [Pain] -Is Patient Pain Free? Yes - Nurse 3 - General Ulcer D/C NN Start: 02/17/20 11:24 Freq: Status: Active Protocol: Activity Type Activity Date Activity User E-Sign Co-Sign Detail Recorded Client Recorded Date Recorded By Document 02/17/20 11:56 [facility] [id number] 02/17/20 11:59 [facility] 02/17/20 11:56 Wound Care Nurse 3 [Wound Dressing] #1 Sacrum -Primary Dressing Applied Mepilex Border, Other -Other Dressing epicord per c cheuvront lead caster helper -Primary Dressing Covered/Secured Dry Gauze with -Mepilex Border 1 [Post Procedure Tolerated] -Treatment Response Procedure Tolerated Well Vital Signs [Pulse] -Pulse Rate (60-100) 65 -Pulse Location Monitor [Blood Pressure] -Blood Pressure (90/60-120/80) 160/106 H -Blood Pressure Mean (mm Hg) 124 -Source Monitor -Position Sitting -Blood Pressure Location Left Arm [Comments] -Comment pt 's pcp has been managing bp's and adjusting meds. Pain Scale: 0-10 Numeric [Pain] -Is Patient Pain Free? Yes - Visit Discharge [Visit Discharge Information] -Discharge Condition Stable -Ambulatory Status Ambulatory -Transportation Private Auto -Accompanied by Psych/Mental Status: Normal Affect, Appropriate Debridement Note Post-Debridement Measurements/Treatment WC - Nurse 2 - General Ulcer CM Notes Start: 02/17/20 11:24 Freq: Status: Active Protocol: Activity Type Activity Date Activity User E-Sign Co-Sign Detail Recorded Client Recorded Date Recorded By Document 02/17/20 11:37 [id number] 02/17/20 11:46 02/17/20 11:37 Wound Center Nurse 2 #1 Sacrum -Time 11:38 -Correct Patient Yes -Correct Side, Site, Position Yes -Correct Procedure Yes -Procedure Performed Yes -Type of Procedure Debridement -Clinical Debridement Subcutaneous -Tissue Removed Subcutaneous -Post Debridement (cm) - Length 3.2 -Post Debridement (cm) - Width 2.2 -Post Debridement (cm) - Depth 0.2 -Total Square (Post) (cm) 7.04 -Area of Debridement (cm) - Length 3.2 -Area of Debridement (cm) - Width 2.2 -Total Square (Area) (cm) 7.04 -Tunneling No -Undermining/Tunneling No -Circular Undermining No -Wound/Ulcer Outcome Not Healed -Ulcer Cleansing Rinsed/ Irrigated with Saline -Foul Odor after Cleansing No -Bioengineered Tissue Yes -Type of Bioengineered Tissue Epifix Mesh -Expiration Date 10/13/24 -Product Lot Number [id number] -Percent Used 100 -Saline Lot Number [id number] -Bleeding Controlled with Pressure -Offloading No -Treatment Response Procedure Tolerated Well -Debridement - Subq, 1st 20sq cm No -Apply Skin Sub - 1st 25 sq cm - Legs 1 -Epifix Mesh (per sq cm) 6 Pain Scale: 0-10 Numeric Is Patient Pain Free? Yes WC - Nurse 3 - General Ulcer D/C NN Start: 02/17/20 11:24 Freq: Status: Active Protocol: Activity Type Activity Date Activity User E-Sign Co-Sign Detail Recorded Client Recorded Date Recorded By Document 02/17/20 11:56 [facility] [id number] 02/17/20 11:59 [facility] 02/17/20 11:56 Wound Care Nurse 3 #1 Sacrum -Primary Dressing Applied Mepilex Border, Other -Other Dressing epicord per c cheuvront lead caster helper -Primary Dressing Covered/Secured with Dry Gauze -Mepilex Border 1 Treatment Response Procedure Tolerated Well Vital Signs Pulse Rate (60-100) 65 Pulse Location Monitor Blood Pressure (90/60-120/80) 160/106 H Blood Pressure Mean (mm Hg) 124 Source Monitor Position Sitting Blood Pressure Location Left Arm Comment pt 's pcp has been managing bp's and adjusting meds. Pain Scale: 0-10 Numeric Is Patient Pain Free? Yes WC - Visit Discharge Discharge Condition Stable Ambulatory Status Ambulatory Transportation Private Auto Accompanied by Wound debrided: Sacral ulcer Type of Debridement: Excisional debridement Anesthesia Used: 5% Lidocaine Gel Depth: Down to and including healthy tissue, in the subcutaneous layer, to muscle Percentage of wound debrided: 100 Instrument Used: 5mm curette Tissue Removed: Slough and devitalized tissue Severity: Fat Layer Exposed Amount of bleeding with debridement: Mild Bleeding Controlled with: Pressure Patient tolerated procedure well Assessment/Plan Active Problems Osteomyelitis of pelvis (Chronic) Sacral decubitus ulcer, stage IV (Chronic) Assessment: 1. Sacral pressure sore, Stage IV. 2. Clinical osteomyelitis. 3. Recent intubation for pneumonia. 4. Former smoker. Plan: New Epicord applied today following debridement. 100% of the product was used. Patient is to keep dressing clean and dry, and keep epi-cord in place until next visit. Wound culture from 12/30/19 was postive for Enterococcus fecalis, Corynebacterium striatum and Fusobacterium nucleatum. He was placed on Augmentin and has finished them. Prealbumin from 09/29/19 was 18.9. Encourage nutritional supplementation with protein to help the healing process. Follow-up in 1 week for reassessment. Follow-up sooner should new or concerning symptoms arise. Note: [employer] speech recognition hand launderer software was used to cre ate portions of this document. Sound-alike and misspelled words, as well as other hand launderer errors may be contained in the documentation. 150xxx-152xx: [id number] Skin sub graft trnk/arm/leg
[2020-02-24 12:50] VITALS: BP 156/61; PULSE 58; RESP 18; TEMP 36.2; BMI 25.7
--- NOTE | 2020-02-24 12:54 | WC ---
unable to measure wound today d/t epicord and steristrips left in place.
--- NOTE | 2020-02-24 16:06 | PCM.WC.PN ---
(1) Sacral decubitus ulcer, stage IV Status: Chronic Current Visit: Yes Code(s): L89.154 - Pressure ulcer of sacral region, stage 4 (2) Osteomyelitis of pelvis Status: Chronic Current Visit: Yes Code(s): M86.9 - Osteomyelitis, unspecified (3) Former smoker Status: Chronic Current Visit: No Code(s): Z87.891 - Personal history of nicotine dependence Type of Wound Date of Service: 02/24/20 Chief Complaint: Sacral pressure sore, Stage IV. History of Wound: Surgery 09/30/19 - Excision infected necrotic sacral pressure sore, Stage IV, with partial ostectomy for osteomyelitis. Wound care - Silver. Operative culture - Anaerobic cocci and Bacteroides thetaiotamicron in the soft tissue and Anaerobic cocci in the bone. He was treated with IV Ertapenem and has finished them. Another wound culture was obtained on 12/30/19. It showed Enterococcus fecalis, Corynebacterium striatum and Fusobacterium nucleatum. He was placed on Augmentin and has finished them. Pathology - negative for osteomyelitis. Prealbumin from 09/29/19 was 18.9. Encourage nutritional supplementation with protein to help the healing process. CT Abdomen from 09/27/19 showed Soft tissue ulceration with extension into the right and left gluteus maximum muscle as with air. I suspect involvement of the distal coccygeal bony element.. Today he denies fever. His appetite is good. Progress of Wound: Patient's wound is improved in size and appearance. Epicord was well-tolerated. The patient denies any fever, chills, nausea, vomiting, or diarrhea. Denies any signs of infection, including increasing pain, redness, swelling, or purulent/malodorous drainage from affected area. - Physical Exam Vital Signs Temp Pulse Resp BP 97.2 F L 58 L 18 156/61 H 02/24/20 12:50 02/24/20 12:50 02/24/20 12:50 02/24/20 12:50 General: Alert, Cooperative, No apparent distress HEENT: Atraumatic, Normocephalic Oral: Moist Mucosa Neck: Supple Lungs: Normal air movement Extremities: No edema Skin: Ulcer/ Wound - Sacral ulcer with good granulation tissue, subcutaneous layer exposed. No jose-ulcer erythema, edema, warmth, or tenderness. No purulent/malodorous drainage. No tunneling, undermining, or probing to bone. Wound Measurements and Assessment WC - Nurse 1 - General Ulcer Measurement Start: 02/17/20 11:24 Freq: Status: Active Protocol: Activity Type Activity Date Activity User E-Sign Co-Sign Detail Recorded Client Recorded Date Recorded By Document 02/24/20 12:50 [facility] [id number] 02/24/20 12:56 [facility] 02/24/20 12:50 Wound Center Nurse 1 [Ulcer Assessment] #1 Sacrum -Combined with other wound No -Tunneling No -Undermining/Tunneling No -Circular Undermining No -Exudate Amt Small -Exudate Type Serosanguineous -Wound Margin Flat & Intact -Texture (Jose-wound Skin Appearance) Assessed, Scarring -Moisture (Jose-wound Skin Appearance Assessed ) -Color (Jose-wound Skin Appearance) Assessed -Temperature (Jose-wound Skin No Abnormality Appearance) (Pt Warm) -Tenderness on Palpation (Jose-wound No Skin Appearance) -Ulcer Cleansing Wound Cleanser -Foul Odor after Cleansing No 02/24/20 12:54 Wound Center by Tiana Aguilar unable to measure wound today d/t epicord and steristrips left in place. Initialized on 02/24/20 12:54 - END OF NOTE WC - Nurse 2 - General Ulcer CM Notes Start: 02/17/20 11:24 Freq: Status: Active Protocol: Activity Type Activity Date Activity User E-Sign Co-Sign Detail Recorded Client Recorded Date Recorded By Document 02/24/20 13:34 [id number] 02/24/20 13:41 02/24/20 13:34 Wound Center Nurse 2 [Procedure/Treatment] -Time 13:34 -Correct Patient Yes -Correct Side, Site, Position Yes -Correct Procedure Yes -Procedure Performed Yes -Type of Procedure Debridement -Clinical Debridement Subcutaneous -Tissue Removed Subcutaneous -Post Debridement (cm) - Length 2.6 -Post Debridement (cm) - Width 2.0 -Post Debridement (cm) - Depth 0.2 -Total Square (Post) (cm) 5.20 -Area of Debridement (cm) - Length 2.6 -Area of Debridement (cm) - Width 2.0 -Total Square (Area) (cm) 5.20 -Tunneling No -Undermining/Tunneling No -Circular Undermining No -Wound/Ulcer Outcome Not Healed -Ulcer Cleansing Rinsed/ Irrigated with Saline -Foul Odor after Cleansing No -Bioengineered Tissue Yes -Type of Bioengineered Tissue Epicord -Expiration Date 08/16/24 -Product Lot Number [id number] -Percent Used 100 -Saline Lot Number [id number] -Bleeding Controlled with Pressure -Offloading No -Treatment Response Procedure Tolerated Well -Debridement - Subq, 1st 20sq cm No -Apply Skin Sub - 1st 25 sq cm - Legs 1 -Epicord (per sq cm) 6 [See Physician Procedure note for Specifics] Pain Scale: 0-10 Numeric [Pain] -Is Patient Pain Free? Yes - Nurse 3 - General Ulcer D/C NN Start: 02/17/20 11:24 Freq: Status: Active Protocol: Activity Type Activity Date Activity User E-Sign Co-Sign Detail Recorded Client Recorded Date Recorded By Document 02/24/20 13:50 [id number] 02/24/20 13:51 02/24/20 13:50 Wound Care Nurse 3 [Wound Dressing] #1 Sacrum -Primary Dressing Applied Mepilex Border -Other Dressing mepilex bordered adhesive -Mepilex Border 2 [Post Procedure Tolerated] -Treatment Response Procedure Tolerated Well Vital Signs [Comments] -Comment pt refused blood pressure post dr appointments Pain Scale: 0-10 Numeric [Pain] -Is Patient Pain Free? Yes Teaching: Wound Center [Wound Center Education] (Items with an * have Printed Materials Available- Please identify what is given to patient under the Teaching materials given to patient and caregiver Section. Skin Care -Person Taught Patient -Teaching Method Discussion -Response to teaching Verbalize understanding - Visit Discharge [Visit Discharge Information] -Discharge Condition Stable -Ambulatory Status Ambulatory -Transportation Private Auto -Medication Reconcilliation completed No & provided to patient/care provider -Clinical Summary of Care Provided Yes Psych/Mental Status: Normal Affect, Appropriate Debridement Note Post-Debridement Measurements/Treatment - Nurse 2 - General Ulcer CM Notes Start: 02/17/20 11:24 Freq: Status: Active Protocol: Activity Type Activity Date Activity User E-Sign Co-Sign Detail Recorded Client Recorded Date Recorded By Document 02/17/20 11:37 [id number] 02/17/20 11:46 Document 02/24/20 13:34 [id number] 02/24/20 13:41 JF 02/17/20 02/24/20 11:37 13:34 Wound Center Nurse 2 #1 Sacrum -Time 11:38 13:34 -Correct Patient Yes Yes -Correct Side, Site, Position Yes Yes -Correct Procedure Yes Yes -Procedure Performed Yes Yes -Type of Procedure Debridement Debridement -Clinical Debridement Subcutaneous Subcutaneous -Tissue Removed Subcutaneous Subcutaneous -Post Debridement (cm) - Length 3.2 2.6 -Post Debridement (cm) - Width 2.2 2.0 -Post Debridement (cm) - Depth 0.2 0.2 -Total Square (Post) (cm) 7.04 5.20 -Area of Debridement (cm) - Length 3.2 2.6 -Area of Debridement (cm) - Width 2.2 2.0 -Total Square (Area) (cm) 7.04 5.20 -Tunneling No No -Undermining/Tunneling No No -Circular Undermining No No -Wound/Ulcer Outcome Not Healed Not Healed -Ulcer Cleansing Rinsed/ Rinsed/ Irrigated with Irrigated with Saline Saline -Foul Odor after Cleansing No No -Bioengineered Tissue Yes Yes -Type of Bioengineered Tissue Epifix Mesh Epicord -Expiration Date 10/13/24 08/16/24 -Product Lot Number [id number] -Percent Used 100 100 -Saline Lot Number [id number] -Bleeding Controlled with Pressure Pressure -Offloading No No -Treatment Response Procedure Procedure Tolerated Well Tolerated Well -Debridement - Subq, 1st 20sq cm No No -Apply Skin Sub - 1st 25 sq cm - Legs 1 1 -Epicord (per sq cm) 6 -Epifix Mesh (per sq cm) 6 Pain Scale: 0-10 Numeric Is Patient Pain Free? Yes Yes WC - Nurse 3 - General Ulcer D/C NN Start: 02/17/20 11:24 Freq: Status: Active Protocol: Activity Type Activity Date Activity User E-Sign Co-Sign Detail Recorded Client Recorded Date Recorded By Document 02/17/20 11:56 [facility] [id number] 02/17/20 11:59 BM Document 02/24/20 13:50 RB [id number] 02/24/20 13:51 RB 02/17/20 02/24/20 11:56 13:50 Wound Care Nurse 3 #1 Sacrum -Primary Dressing Applied Mepilex Border, Mepilex Border Other -Other Dressing epicord per c mepilex cheuvront investment counselor bordered adhesive -Primary Dressing Covered/Secured with Dry Gauze -Mepilex Border 1 2 Treatment Response Procedure Procedure Tolerated Well Tolerated Well Vital Signs Pulse Rate (60-100) 65 Pulse Location Monitor Blood Pressure (90/60-120/80) 160/106 H Blood Pressure Mean (mm Hg) 124 Source Monitor Position Sitting Blood Pressure Location Left Arm Comment pt 's pcp has pt refused been managing blood pressure bp's and post dr adjusting meds. appointments Pain Scale: 0-10 Numeric Is Patient Pain Free? Yes Yes Teaching: Wound Center Skin Care -Person Taught Patient -Teaching Method Discussion -Response to teaching Verbalize understanding WC - Visit Discharge Discharge Condition Stable Stable Ambulatory Status Ambulatory Ambulatory Transportation Private Auto Private Auto Accompanied by Medication Reconcilliation completed & No provided to patient/care provider Clinical Summary of Care Provided Yes Wound debrided: Sacral ulcer Laterality: Not Applicable Type of Debridement: Excisional debridement Anesthesia Used: 4% Lidocaine Solution Depth: in the subcutaneous layer Percentage of wound debrided: 100 Instrument Used: 5mm curette Tissue Removed: Slough and devitalized tissue Severity: Fat Layer Exposed Amount of bleeding with debridement: Mild Bleeding Controlled with: Pressure Patient tolerated procedure well Assessment/Plan Active Problems Osteomyelitis of pelvis (Chronic) Sacral decubitus ulcer, stage IV (Chronic) Assessment: 1. Sacral pressure sore, Stage IV. 2. Clinical osteomyelitis. 3. Recent intubation for pneumonia. 4. Former smoker. Plan: Epicord #3 applied today following debridement. 100% of the product was used. Covered with wound veil and Steri-Strips. Patient is to keep dressing clean and dry, and keep epi-cord in place until next visit. Wound culture from 12/30/19 was postive for Enterococcus fecalis, Corynebacterium striatum and Fusobacterium nucleatum. He was placed on Augmentin and has finished them. Prealbumin from 09/29/19 was 18.9. Encourage nutritional supplementation with protein to help the healing process. Follow-up in 2 weeks for reassessment. Follow-up sooner should new or concerning symptoms arise. Note: [employer] speech recognition chronometer repairer software was used to create portions of this document. Sound-alike and misspelled words, as well as other chronometer repairer errors may be contained in the documentation. 150xxx-152xx: [id number] Skin sub graft trnk/arm/leg
[2020-03-09 13:16] VITALS: BP 166/85; PULSE 58; RESP 16; TEMP 35.8; BMI 25.7
--- NOTE | 2020-03-11 15:58 | PN.PCM_ITS ---
(1) Sacral decubitus ulcer, stage IV Status: Chronic Code(s): L89.154 - Pressure ulcer of sacral region, stage 4 (2) Osteomyelitis of pelvis Status: Chronic Code(s): M86.9 - Osteomyelitis, unspecified (3) Former smoker Status: Chronic Code(s): Z87.891 - Personal history of nicotine dependence Type of Wound Date of Service: 03/09/20 Chief Complaint: Sacral pressure sore, Stage IV. History of Wound: Surgery 09/30/19 - Excision infected necrotic sacral pressure sore, Stage IV, with partial ostectomy for osteomyelitis. Wound care - Silver. Operative culture - Anaerobic cocci and Bacteroides thetaiotamicron in the soft tissue and Anaerobic cocci in the bone. He was treated with IV Ertapenem and has finished them. Another wound culture was obtained on 12/30/19. It showed Enterococcus fecalis, Corynebacterium striatum and Fusobacterium nucleatum. He was placed on Augmentin and has finished them. Pathology - negative for osteomyelitis. Prealbumin from 09/29/19 was 18.9. Encourage nutritional supplementation with protein to help the healing process. CT Abdomen from 09/27/19 showed Soft tissue ulceration with extension into the right and left gluteus maximum muscle as with air. I suspect involvement of the distal coccygeal bony element.. Today he denies fever. His appetite is good. Progress of Wound: Patient's wound is improved in size and appearance. Epicord was well-tolerated. The patient denies any fever, chills, nausea, vomiting, or d iarrhea. Denies any signs of infection, including increasing pain, redness, swelling, or purulent/malodorous drainage from affected area. - Physical Exam Vital Signs Temp Pulse Resp BP 96.4 F L 58 L 16 166/85 H 03/09/20 13:16 03/09/20 13:16 03/09/20 13:16 03/09/20 13:16 General: Alert, Cooperative, No apparent distress HEENT: Atraumatic, Normocephalic Oral: Moist Mucosa Neck: Supple Lungs: Normal air movement Extremities: Capillary Refill Less than 3 Seconds Skin: Ulcer/ Wound - Sacral ulcer with good granulation tissue, subcutaneous layer exposed. No periulcer erythema, edema, warmth or tenderness. No purulent/malodorous drainage. No tunneling, undermining, or probing to bone. Wound Measurements and Assessment - Nurse 1 - General Ulcer Measurement Start: 02/17/20 11:24 Freq: Status: Active Protocol: Activity Type Activity Date Activity User E-Sign Co-Sign Detail Recorded Client Recorded Date Recorded By Document 03/09/20 13:16 [facility] [id number] 03/09/20 13:25 [facility] 03/09/20 13:16 Wound Center Nurse 1 [Ulcer Assessment] #1 Sacrum -Combined with other wound No -Current Size (cm) - Length 1.9 -Current Size (cm) - Width 1.6 -Current Size (cm) - Depth 0.1 -Total Square Cm 3.04 -Photo Taken No -Epithelialization Small 1-33% -Tunneling No -Undermining/Tunneling No -Circular Undermining No -Exudate Amt Large -Exudate Type Serosanguineous -Wound Margin Distinct, Outline Attached -Granulation Amt Small (1-33%) -Granulation Quality [place] -Slough/Fibrin Yes -Necrosis Amt Large (67-100%) -Necrotic Tissue Type Adherent Slough -Texture (Kori-wound Skin Appearance) Assessed, Scarring -Moisture (Kori-wound Skin Appearance Assessed,Dry/ ) Scaly -Color (Kori-wound Skin Appearance) Assessed -Temperature (Kori-wound Skin No Abnormality Appearance) (Pt Warm) -Tenderness on Palpation (Kori-wound No Skin Appearance) -Ulcer Cleansing soapy water -Foul Odor after Cleansing No -Anesthetic Used 5% Lidocaine Gel - Nurse 2 - General Ulcer CM Notes Start: 02/17/20 11:24 Freq: Status: Active Protocol: Activity Type Activity Date Activity User E-Sign Co-Sign Detail Recorded Client Recorded Date Recorded By Document 03/09/20 14:17 [id number] 03/09/20 14:30 03/09/20 14:17 Wound Center Nurse 2 [Procedure/Treatment] -Time 14:20 -Correct Patient Yes -Correct Side, Site, Position Yes -Correct Procedure Yes -Procedure Performed Yes -Type of Procedure Debridement -Clinical Debridement Subcutaneous -Tissue Removed Subcutaneous -Post Debridement (cm) - Length 2.1 -Post Debridement (cm) - Width 1.7 -Post Debridement (cm) - Depth 0.2 -Total Square (Post) (cm) 3.57 -Area of Debridement (cm) - Length 2.1 -Area of Debridement (cm) - Width 1.7 -Total Square (Area) (cm) 3.57 -Tunneling No -Undermining/Tunneling No -Circular Undermining No -Wound/Ulcer Outcome Not Healed -Ulcer Cleansing Rinsed/ Irrigated with Saline -Foul Odor after Cleansing No -Bioengineered Tissue Yes -Type of Bioengineered Tissue Epifix -Expiration Date 10/13/24 -Product Lot Number [id number] -Percent Used 100 -Saline Lot Number [id number] -Bleeding Controlled with Pressure -Offloading No -Treatment Response Procedure Tolerated Well -Debridement - Subq, 1st 20sq cm No -Apply Skin Sub - 1st 25 sq cm - Legs 1 -Epifix (per sq cm) 4 [See Physician Procedure note for Specifics] - Nurse 3 - General Ulcer D/C NN Start: 02/17/20 11:24 Freq: Status: Active Protocol: Activity Type Activity Date Activity User E-Sign Co-Sign Detail Recorded Client Recorded Date Recorded By Document 03/09/20 14:38 DL [id number] 03/09/20 14:39 DL 03/09/20 14:38 Wound Care Nurse 3 [Wound Dressing] #1 Sacrum -Foul Odor after Cleansing No -Primary Dressing Applied Allevyn Foam 6x6 -Other Dressing Epifix -Allevyn Foam 6x6 1 [Post Procedure Tolerated] -Treatment Response Procedure Tolerated Well Pain Scale: 0-10 Numeric [Pain] -Is Patient Pain Free? Yes - Visit Discharge [Visit Discharge Information] -Discharge Condition Stable -Ambulatory Status Ambulatory -Transportation Private Auto Psych/Mental Status: Normal Affect, Appropriate Debridement Note Post-Debridement Measurements/Treatment - Nurse 2 - General Ulcer CM Notes Start: 02/17/20 11:24 Freq: Status: Active Protocol: Activity Type Activity Date Activity User E-Sign Co-Sign Detail Recorded Client Recorded Date Recorded By Document 02/17/20 11:37 [id number] 02/17/20 11:46 Document 02/24/20 13:34 [id number] 02/24/20 13:41 Document 03/09/20 14:17 [id number] 03/09/20 14:30 02/17/20 02/24/20 03/09/20 11:37 13:34 14:17 Wound Center Nurse 2 #1 Sacrum -Time 11:38 13:34 14:20 -Correct Patient Yes Yes Yes -Correct Side, Site, Position Yes Yes Yes -Correct Procedure Yes Yes Yes -Procedure Performed Yes Yes Yes -Type of Procedure Debridement Debridement Debridement -Clinical Debridement Subcutaneous Subcutaneous Subcutaneous -Tissue Removed Subcutaneous Subcutaneous Subcutaneous -Post Debridement (cm) - Length 3.2 2.6 2.1 -Post Debridement (cm) - Width 2.2 2.0 1.7 -Post Debridement (cm) - Depth 0.2 0.2 0.2 -Total Square (Post) (cm) 7.04 5.20 3.57 -Area of Debridement (cm) - Length 3.2 2.6 2.1 -Area of Debridement (cm) - Width 2.2 2.0 1.7 -Total Square (Area) (cm) 7.04 5.20 3.57 -Tunneling No No No -Undermining/Tunneling No No No -Circular Undermining No No No -Wound/Ulcer Outcome Not Healed Not Healed Not Healed -Ulcer Cleansing Rinsed/ Rinsed/ Rinsed/ Irrigated with Irrigated with Irrigated with Saline Saline Saline -Foul Odor after Cleansing No No No -Bioengineered Tissue Yes Yes Yes -Type of Bioengineered Tissue Epifix Mesh Epicord Epifix -Expiration Date 10/13/24 08/16/24 10/13/24 -Product Lot Number [id number] -Percent Used 100 100 100 -Saline Lot Number [id number] -Bleeding Controlled with Pressure Pressure Pressure -Offloading No No No -Treatment Response Procedure Procedure Procedure Tolerated Well Tolerated Well Tolerated Well -Debridement - Subq, 1st 20sq cm No No No -Apply Skin Sub - 1st 25 sq cm - Legs 1 1 1 -Epicord (per sq cm) 6 -Epifix (per sq cm) 4 -Epifix Mesh (per sq cm) 6 Pain Scale: 0-10 Numeric Is Patient Pain Free? Yes Yes WC - Nurse 3 - General Ulcer D/C NN Start: 02/17/20 11:24 Freq: Status: Active Protocol: Activity Type Activity Date Activity User E-Sign Co-Sign Detail Recorded Client Recorded Date Recorded By Document 02/17/20 11:56 [facility] [id number] 02/17/20 11:59 BM Document 02/24/20 13:50 RB [id number] 02/24/20 13:51 RB Document 03/09/20 14:38 DL [id number] 03/09/20 14:39 DL 02/17/20 02/24/20 03/09/20 11:56 13:50 14:38 Wound Care Nurse 3 #1 Sacrum -Foul Odor after Cleansing No -Primary Dressing Applied Mepilex Border, Mepilex Border Allevyn Foam Other 6x6 -Other Dressing epicord per c mepilex Epifix cheuvront district sales manager bordered adhesive -Primary Dressing Covered/Secured with Dry Gauze -Allevyn Foam 6x6 1 -Mepilex Border 1 2 Treatment Response Procedure Procedure Procedure Tolerated Well Tolerated Well Tolerated Well Vital Signs Pulse Rate (60-100) 65 Pulse Location Monitor Blood Pressure (90/60-120/80) 160/106 H Blood Pressure Mean (mm Hg) 124 Source Monitor Position Sitting Blood Pressure Location Left Arm Comment pt 's pcp has pt refused been managing blood pressure bp's and post dr adjusting meds. appointments Pain Scale: 0-10 Numeric Is Patient Pain Free? Yes Yes Yes Teaching: Wound Center Skin Care -Person Taught Patient -Teaching Method Discussion -Response to teaching Verbalize understanding WC - Visit Discharge Discharge Condition Stable Stable Stable Ambulatory Status Ambulatory Ambulatory Ambulatory Transportation Private Auto Private Auto Private Auto Accompanied by Medication Reconcilliation completed & No provided to patient/care provider Clinical Summary of Care Provided Yes Wound debrided: Sacral ulcer Laterality: Not Applicable Type of Debridement: Excisional debridement Anesthesia Used: 4% Lidocaine Solution Depth: in the subcutaneous layer Percentage of wound debrided: 100 Instrument Used: 5mm curette Tissue Removed: Slough and devitalized tissue Severity: Fat Layer Exposed Amount of bleeding with debridement: Mild Bleeding Controlled with: Pressure Patient tolerated procedure well Assessment/Plan Assessment: 1. Sacral pressure sore, Stage IV. 2. Clinical osteomyelitis. 3. Recent intubation for pneumonia. 4. Former smoker. Plan: Advanced skin sub#4 applied today (Epifix) following debridement. 100% of the product was used. Covered with Adaptic touch and Steri-Strips. Patient is to keep dressing clean and dry, and keep Epifix in place until next visit. Wound culture from 12/30/19 was postive for Enterococcus fecalis, Corynebacterium striatum and Fusobacterium nucleatum. He was placed on Augmentin and has finished them. Prealbumin from 09/29/19 was 18.9. Encourage nutritional supplementation with protein to help the healing process. Follow-up in 1 week for reassessment. Follow-up sooner should new or concerning symptoms arise. Note: [employer] speech recognition communications coordinator software was used to create portions of this document. Sound-alike and misspelled words, as well as other communications coordinator errors may be contained in the documentation. 150xxx-152xx: [id number] Skin sub graft trnk/arm/leg
== END 2020-03-14 23:59 ==
LOC: WC 13:30
PROVIDERS: PCP Internal Medicine Infectious Disease; Referring Provider Internal Medicine Infectious Disease; Visit Provider Nurse Practitioner Family
DX: L89.154 Pressure ulcer of sacral region, stage 4 (principal); M46.28 Osteomyelitis of vertebra, sacral and sacrococcygeal region; Z87.891 Personal history of nicotine dependence; Z87.01 Personal history of pneumonia (recurrent)
CPT/HCPCS: 15271; Q4186; Q4187

== ENCOUNTER 2020-04-13 13:45 | Outpatient (RCR) | payer MEDICARE, BC, SELFPAY ==
[2020-03-15 00:20] VITALS: BP 166/85; PULSE 58; RESP 16; TEMP 35.8
[2020-03-16 11:04] VITALS: BP 160/95; PULSE 61; RESP 18; TEMP 36.6; BMI 25.7
--- NOTE | 2020-03-16 12:42 | PN.PCM_ITS ---
(1) Sacral decubitus ulcer, stage IV Status: Chronic Code(s): L89.154 - Pressure ulcer of sacral region, stage 4 (2) Osteomyelitis of pelvis Status: Chronic Code(s): M86.9 - Osteomyelitis, unspecified (3) Former smoker Status: Chronic Code(s): Z87.891 - Personal history of nicotine dependence Type of Wound Date of Service: 03/16/20 Chief Complaint: Sacral pressure sore, Stage IV. History of Wound: Surgery 09/30/19 - Excision infected necrotic sacral pressure sore, Stage IV, with partial ostectomy for osteomyelitis. Wound care - Epifix withwound veil. Operative culture - Anaerobic cocci and Bacteroides thetaiotamicron in the soft tissue and Anaerobic cocci in the bone. He was jorge fernando with IV Ertapenem and has finished them. Another wound culture was obtained on 12/30/19. It showed Enterococcus fecalis, Corynebacterium striatum and Fusobacterium nucleatum. He was placed on Augmentin and has finished them. Pathology - negative for osteomyelitis. Prealbumin from 09/29/19 was 18.9. Encourage nutritional supplementation with protein to help the healing process. CT Abdomen from 09/27/19 showed Soft tissue ulceration with extension into the right and left gluteus maximum muscle as with air. I suspect involvement of the distal coccygeal bony element.. Today he denies fever. His appetite is good. Progress of Wound: Improved. - Physical Exam Vital Signs Temp Pulse Resp BP 97.8 F 61 18 160/95 H 03/16/20 11:04 03/16/20 11:04 03/16/20 11:04 03/16/20 11:04 General: Alert, Oriented x3, Cooperative HEENT: Atraumatic Oral: Moist Mucosa Lungs: Normal air movement Cardiovascular: Regular rate Extremities: Capillary Refill Less than 3 Seconds Skin: Ulcer/ Wound - Sacral ulcer is beefy pink. Wound Measurements and Assessment WC - Nurse 1 - General Ulcer Measurement Start: 03/16/20 11:04 Freq: Status: Active Protocol: Activity Type Activity Date Activity User E-Sign Co-Sign Detail Recorded Client Recorded Date Recorded By Document 03/16/20 11:04 DL [id number] 03/16/20 11:14 DL 03/16/20 11:04 Wound Center Nurse 1 [Ulcer Assessment] #1 Sacrum -Current Size (cm) - Length 1.5 -Current Size (cm) - Width 1 -Current Size (cm) - Depth 0.1 -Total Square Cm 1.5 -Photo Taken No -Exudate Amt Small -Exudate Type Serosanguineous -Wound Margin Distinct, Outline Attached -Granulation Amt Medium (34-66%) -Granulation Quality Frazer -Necrosis Amt Medium (34-66%) -Necrotic Tissue Type Adherent Slough -Structure Exposed N/A -Texture (Kori-wound Skin Appearance) Scarring -Moisture (Kori-wound Skin Appearance No Abnormality ) -Color (Kori-wound Skin Appearance) No Abnormality -Temperature (Kori-wound Skin No Abnormality Appearance) (Pt Warm) -Tenderness on Palpation (Kori-wound No Skin Appearance) -Ulcer Cleansing Wound Cleanser -Foul Odor after Cleansing No -Anesthetic Used 4% Lidocaine Solution WC - Nurse 2 - General Ulcer CM Notes Start: 03/16/20 11:04 Freq: Status: Active Protocol: Activity Type Activity Date Activity User E-Sign Co-Sign Detail Recorded Client Recorded Date Recorded By Document 03/16/20 11:44 [id number] 03/16/20 11:49 [email or web address] 03/16/20 11:44 Wound Center Nurse 2 [Procedure/Treatment] -Time 11:44 -Correct Patient Yes -Correct Side, Site, Position Yes -Correct Procedure Yes -Procedure Performed Yes -Type of Procedure Debridement -Clinical Debridement Subcutaneous -Tissue Removed Subcutaneous -Post Debridement (cm) - Length 1.5 -Post Debridement (cm) - Width 1.3 -Post Debridement (cm) - Depth 0.2 -Total Square (Post) (cm) 1.95 -Area of Debridement (cm) - Length 1.5 -Area of Debridement (cm) - Width 1.3 -Total Square (Area) (cm) 1.95 -Tunneling No -Undermining/Tunneling No -Circular Undermining No -Wound/Ulcer Outcome Not Healed -Ulcer Cleansing Rinsed/ Irrigated with Saline -Foul Odor after Cleansing No -Bioengineered Tissue Yes -Type of Bioengineered Tissue Epifix 18mm Disc -Expiration Date 11/12/24 -Product Lot Number [id number] -Percent Used 100 -Saline Lot Number [id number] -Bleeding Controlled with Pressure -Offloading No -Treatment Response Procedure Tolerated Well -Debridement - Subq, 1st 20sq cm No -Apply Skin Sub - 1st 25 sq cm - Legs 1 -Epifix 18mm Disc 3 Query Text:18mm = 3 [See Physician Procedure note for Specifics] Pain Scale: 0-10 Numeric [Pain] -Is Patient Pain Free? Yes - Nurse 3 - General Ulcer D/C NN Start: 03/16/20 11:04 Freq: Status: Active Protocol: Activity Type Activity Date Activity User E-Sign Co-Sign Detail Recorded Client Recorded Date Recorded By Document 03/16/20 11:50 [id number] 03/16/20 11:50 03/16/20 11:50 Wound Care Nurse 3 [Wound Dressing] #1 Sacrum -Ulcer Cleansing Rinsed/ Irrigated with Saline -Foul Odor after Cleansing No -Primary Dressing Applied Mepilex Border -Mepilex Border 1 Pain Scale: 0-10 Numeric [Pain] -Is Patient Pain Free? Yes - Visit Discharge [Visit Discharge Information] -Discharge Condition Stable -Ambulatory Status Ambulatory -Transportation Private Auto -Medication Reconcilliation completed Yes & provided to patient/care provider -Clinical Summary of Care Provided Yes Musculoskeletal: No Tenderness to Palpation of Joints or Extremities Neurological: Cranial nerves II-XII grossly intact Psych/Mental Status: Normal Affect, Appropriate Debridement Note Post-Debridement Measurements/Treatment - Nurse 2 - General Ulcer CM Notes Start: 03/16/20 11:04 Freq: Status: Active Protocol: Activity Type Activity Date Activity User E-Sign Co-Sign Detail Recorded Client Recorded Date Recorded By Document 03/16/20 11:44 [id number] 03/16/20 11:49 03/16/20 11:44 Wound Center Nurse 2 #1 Sacrum -Time 11:44 -Correct Patient Yes -Correct Side, Site, Position Yes -Correct Procedure Yes -Procedure Performed Yes -Type of Procedure Debridement -Clinical Debridement Subcutaneous -Tissue Removed Subcutaneous -Post Debridement (cm) - Length 1.5 -Post Debridement (cm) - Width 1.3 -Post Debridement (cm) - Depth 0.2 -Total Square (Post) (cm) 1.95 -Area of Debridement (cm) - Length 1.5 -Area of Debridement (cm) - Width 1.3 -Total Square (Area) (cm) 1.95 -Tunneling No -Undermining/Tunneling No -Circular Undermining No -Wound/Ulcer Outcome Not Healed -Ulcer Cleansing Rinsed/ Irrigated with Saline -Foul Odor after Cleansing No -Bioengineered Tissue Yes -Type of Bioengineered Tissue Epifix 18mm Disc -Expiration Date 11/12/24 -Product Lot Number [id number] -Percent Used 100 -Saline Lot Number [id number] -Bleeding Controlled with Pressure -Offloading No -Treatment Response Procedure Tolerated Well -Debridement - Subq, 1st 20sq cm No -Apply Skin Sub - 1st 25 sq cm - Legs 1 -Epifix 18mm Disc 3 Query Text:18mm = 3 Pain Scale: 0-10 Numeric Is Patient Pain Free? Yes - Nurse 3 - General Ulcer D/C NN Start: 03/16/20 11:04 Freq: Status: Active Protocol: Activity Type Activity Date Activity User E-Sign Co-Sign Detail Recorded Client Recorded Date Recorded By Document 03/16/20 11:50 [id number] 03/16/20 11:50 03/16/20 11:50 Wound Care Nurse 3 #1 Sacrum -Ulcer Cleansing Rinsed/ Irrigated with Saline -Foul Odor after Cleansing No -Primary Dressing Applied Mepilex Border -Mepilex Border 1 Pain Scale: 0-10 Numeric Is Patient Pain Free? Yes - Visit Discharge Discharge Condition Stable Ambulatory Status Ambulatory Transportation Private Auto Medication Reconcilliation completed & Yes provided to patient/care provider Clinical Summary of Care Provided Yes Wound debrided: sacral ulcer Type of Debridement: Excisional debridement Anesthesia Used: 5% Lidocaine Gel Depth: Down to and including healthy tissue, in the subcutaneous layer Percentage of wound debrided: 100 Instrument Used: 5mm curette Tissue Removed: Subcutaneous tissue and slough Severity: Fat Layer Exposed Amount of bleeding with debridement: Mild Bleeding Controlled with: Pressure Patient tolerated procedure well Assessment/Plan Assessment: 1. Sacral pressure sore, Stage IV. 2. Clinical osteomyelitis. 3. Recent intubation for pneumonia. 4. Former smoker. Plan: Advanced skin sub#5 applied today (Epifix) following debridement. 100% of the product was used. Covered with Adaptic touch and Steri-Strips. Patient is to keep dressing clean and dry, and keep Epifix in place until next visit. Wound culture from 12/30/19 was postive for Enterococcus fecalis, Corynebacterium striatum and Fusobacterium nucleatum. He was placed on Augmentin and has finished them. Prealbumin from 09/29/19 was 18.9. Encourage nutritional supplementation with protein to help the healing process. Follow-up in 1 week for reassessment. Follow-up sooner should new or concerning symptoms arise. Note: [employer] speech recognition car rider software was used to create portions of this document. Sound-alike and misspelled words, as well as other car rider errors may be contained in the documentation. [id number]: [id number] Skin sub graft trnk/arm/leg
[2020-03-23 10:39] VITALS: BP 141/87; PULSE 60; RESP 16; TEMP 36.4; BMI 25.7
--- NOTE | 2020-03-23 14:27 | PCM.WC.PN ---
(1) Sacral decubitus ulcer, stage IV Status: Chronic Code(s): L89.154 - Pressure ulcer of sacral region, stage 4 (2) Osteomyelitis of pelvis Status: Chronic Code(s): M86.9 - Osteomyelitis, unspecified (3) Former smoker Status: Chronic Code(s): Z87.891 - Personal history of nicotine dependence Type of Wound Date of Service: 03/24/20 Chief Complaint: Sacral pressure sore, Stage IV. History of Wound: Surgery 09/30/19 - Excision infected necrotic sacral pressure sore, Stage IV, with partial ostectomy for osteomyelitis. Wound care - Epifix with wound veil. Operative culture - Anaerobic cocci and Bacteroides thetaiotamicron in the soft tissue and Anaerobic cocci in the bone. He was treated with IV Ertapenem and has finished them. Another wound culture was obtained on 12/30/19. It showed Enterococcus fecalis, Corynebacterium striatum and Fusobacterium nucleatum. He was placed on Augmentin and has finished them. Pathology - negative for osteomyelitis. Prealbumin from 09/29/19 was 18.9. Encourage nutritional supplementation with protein to help the healing process. CT Abdomen from 09/27/19 showed Soft tissue ulceration with extension into the right and left gluteus maximum muscle as with air. I suspect involvement of the distal coccygeal bony element.. Today he denies fever. His appetite is good. Progress of Wound: Improved. - Physical Exam Vital Signs Temp Pulse Resp BP 97.5 F L 60 16 141/87 H 03/23/20 10:39 03/23/20 10:39 03/23/20 10:39 03/23/20 10:39 General: Alert, Oriented x3, Cooperative HEENT: Atraumatic Oral: Moist Mucosa Lungs: Normal air movement Cardiovascular: Regular rate Extremities: Capillary Refill Less than 3 Seconds Skin: Ulcer/ Wound - Sacral ulcer is beefy pink and bleeds well. Wound Measurements and Assessment WC - Nurse 1 - General Ulcer Measurement Start: 03/16/20 11:04 Freq: Status: Active Protocol: Activity Type Activity Date Activity User E-Sign Co-Sign Detail Recorded Client Recorded Date Recorded By Document 03/23/20 10:39 [facility] [id number] 03/23/20 10:46 BMF 03/23/20 10:39 Wound Center Nurse 1 [Ulcer Assessment] #1 Sacrum -Combined with other wound No -Current Size (cm) - Length 1.5 -Current Size (cm) - Width 1.4 -Current Size (cm) - Depth 0.1 -Total Square Cm 2.10 -Photo Taken No -Epithelialization None Present -Tunneling No -Undermining/Tunneling No -Circular Undermining No -Exudate Amt Medium -Exudate Type Serosanguineous -Wound Margin Distinct, Outline Attached -Granulation Amt None Present (0 %) -Slough/Fibrin Yes -Necrosis Amt Large (67-100%) -Necrotic Tissue Type Adherent Slough -Texture (Kori-wound Skin Appearance) Assessed, Scarring -Moisture (Kori-wound Skin Appearance Assessed ) -Color (Kori-wound Skin Appearance) Assessed -Temperature (Kori-wound Skin No Abnormality Appearance) (Pt Warm) -Tenderness on Palpation (Kori-wound No Skin Appearance) -Ulcer Cleansing soapy water -Foul Odor after Cleansing No -Anesthetic Used 5% Lidocaine Gel WC - Nurse 2 - General Ulcer CM Notes Start: 03/16/20 11:04 Freq: Status: Active Protocol: Activity Type Activity Date Activity User E-Sign Co-Sign Detail Recorded Client Recorded Date Recorded By Document 03/23/20 11:28 [id number] 03/23/20 11:30 03/23/20 11:28 Wound Center Nurse 2 [Procedure/Treatment] -Time 11:28 -Correct Patient Yes -Correct Side, Site, Position Yes -Correct Procedure Yes -Procedure Performed Yes -Type of Procedure Debridement -Clinical Debridement Subcutaneous -Tissue Removed Subcutaneous -Post Debridement (cm) - Length 1.4 -Post Debridement (cm) - Width 1.2 -Post Debridement (cm) - Depth 0.2 -Total Square (Post) (cm) 1.68 -Area of Debridement (cm) - Length 1.4 -Area of Debridement (cm) - Width 1.2 -Total Square (Area) (cm) 1.68 -Tunneling No -Undermining/Tunneling No -Circular Undermining No -Wound/Ulcer Outcome Not Healed -Ulcer Cleansing Rinsed/ Irrigated with Saline -Foul Odor after Cleansing No -Bioengineered Tissue Yes -Type of Bioengineered Tissue Epifix 18mm Disc -Expiration Date 10/13/24 -Product Lot Number [id number] -Percent Used 100 -Saline Lot Number [id number] -Bleeding Controlled with Pressure -Offloading No -Treatment Response Procedure Tolerated Well -Debridement - Subq, 1st 20sq cm No -Apply Skin Sub - 1st 25 sq cm - Legs 1 -Epifix 18mm Disc 3 Query Text:18mm = 3 [See Physician Procedure note for Specifics] Pain Scale: 0-10 Numeric [Pain] -Is Patient Pain Free? Yes - Nurse 3 - General Ulcer D/C NN Start: 03/16/20 11:04 Freq: Status: Active Protocol: Activity Type Activity Date Activity User E-Sign Co-Sign Detail Recorded Client Recorded Date Recorded By Document 03/23/20 11:36 [facility] [id number] 03/23/20 11:37 [facility] 03/23/20 11:36 Wound Care Nurse 3 [Wound Dressing] #1 Sacrum -Ulcer Cleansing Rinsed/ Irrigated with Saline -Foul Odor after Cleansing No -Primary Dressing Applied Mepilex Border, Other -Other Dressing epifix per md -Mepilex Border 1 [Post Procedure Tolerated] -Treatment Response Procedure Tolerated Well Pain Scale: 0-10 Numeric [Pain] -Is Patient Pain Free? Yes - Visit Discharge [Visit Discharge Information] -Discharge Condition Stable -Ambulatory Status Ambulatory -Transportation Private Auto -Accompanied by Musculoskeletal: No Tenderness to Palpation of Joints or Extremities Neurological: Cranial nerves II-XII grossly intact Psych/Mental Status: Normal Affect, Appropriate Debridement Note Post-Debridement Measurements/Treatment - Nurse 2 - General Ulcer CM Notes Start: 03/16/20 11:04 Freq: Status: Active Protocol: Activity Type Activity Date Activity User E-Sign Co-Sign Detail Recorded Client Recorded Date Recorded By Document 03/16/20 11:44 [id number] 03/16/20 11:49 Document 03/23/20 11:28 [id number] 03/23/20 11:30 03/16/20 03/23/20 11:44 11:28 Wound Center Nurse 2 #1 Sacrum -Time 11:44 11:28 -Correct Patient Yes Yes -Correct Side, Site, Position Yes Yes -Correct Procedure Yes Yes -Procedure Performed Yes Yes -Type of Procedure Debridement Debridement -Clinical Debridement Subcutaneous Subcutaneous -Tissue Removed Subcutaneous Subcutaneous -Post Debridement (cm) - Length 1.5 1.4 -Post Debridement (cm) - Width 1.3 1.2 -Post Debridement (cm) - Depth 0.2 0.2 -Total Square (Post) (cm) 1.95 1.68 -Area of Debridement (cm) - Length 1.5 1.4 -Area of Debridement (cm) - Width 1.3 1.2 -Total Square (Area) (cm) 1.95 1.68 -Tunneling No No -Undermining/Tunneling No No -Circular Undermining No No -Wound/Ulcer Outcome Not Healed Not Healed -Ulcer Cleansing Rinsed/ Rinsed/ Irrigated with Irrigated with Saline Saline -Foul Odor after Cleansing No No -Bioengineered Tissue Yes Yes -Type of Bioengineered Tissue Epifix 18mm Epifix 18mm Disc Disc -Expiration Date 11/12/24 10/13/24 -Product Lot Number [id number] -Percent Used 100 100 -Saline Lot Number [id number] -Bleeding Controlled with Pressure Pressure -Offloading No No -Treatment Response Procedure Procedure Tolerated Well Tolerated Well -Debridement - Subq, 1st 20sq cm No No -Apply Skin Sub - 1st 25 sq cm - Legs 1 1 -Epifix 18mm Disc 3 3 Query Text:18mm = 3 Pain Scale: 0-10 Numeric Is Patient Pain Free? Yes Yes - Nurse 3 - General Ulcer D/C NN Start: 03/16/20 11:04 Freq: Status: Active Protocol: Activity Type Activity Date Activity User E-Sign Co-Sign Detail Recorded Client Recorded Date Recorded By Document 03/16/20 11:50 [id number] 03/16/20 11:50 Document 03/23/20 11:36 [facility] [id number] 03/23/20 11:37 [facility] 03/16/20 03/23/20 11:50 11:36 Wound Care Nurse 3 #1 Sacrum -Ulcer Cleansing Rinsed/ Rinsed/ Irrigated with Irrigated with Saline Saline -Foul Odor after Cleansing No No -Primary Dressing Applied Mepilex Border Mepilex Border, Other -Other Dressing epifix per md -Mepilex Border 1 1 Treatment Response Procedure Tolerated Well Pain Scale: 0-10 Numeric Is Patient Pain Free? Yes Yes - Visit Discharge Discharge Condition Stable Stable Ambulatory Status Ambulatory Ambulatory Transportation Private Auto Private Auto Accompanied by Medication Reconcilliation completed & Yes provided to patient/care provider Clinical Summary of Care Provided Yes Wound debrided: Sacral ulcer Type of Debridement: Excisional debridement Anesthesia Used: 5% Lidocaine Gel Depth: Down to and including healthy tissue, in the subcutaneous layer Percentage of wound debrided: 100 Instrument Used: 3mm curette Tissue Removed: Subcutaneous tissue and slough Severity: Fat Layer Exposed Amount of bleeding with debridement: Mild Bleeding Controlled with: Pressure, Compression and gauze Patient tolerated procedure well Assessment/Plan Active Problems Former smoker (Chronic) Osteomyelitis of pelvis (Chronic) Sacral decubitus ulcer, stage IV (Chronic) Assessment: 1. Sacral pressure sore, Stage IV. 2. Clinical osteomyelitis. 3. Recent intubation for pneumonia. 4. Former smoker. Plan: Advanced skin sub#6 applied today (Epifix) following debridement. 100% of the product was used. Covered with Adaptic touch and Steri-Strips. Patient is to keep dressing clean and dry, and keep Epifix in place until next visit. Wound culture from 12/30/19 was postive for Enterococcus fecalis, Corynebacterium striatum and Fusobacterium nucleatum. He was placed on Augmentin and has finished them. Prealbumin from 09/29/19 was 18.9. Encourage nutritional supplementation with protein to help the healing process. Follow-up in 1 week for reassessment. Follow-up sooner should new or concerning symptoms arise. 150xxx-152xx: [id number] Skin sub graft trnk/arm/leg
[2020-03-30 10:34] VITALS: BP 154/84; PULSE 73; RESP 16; TEMP 36; BMI 25.7
--- NOTE | 2020-03-30 16:02 | PCM.WC.PN ---
Type of Wound Date of Service: 03/30/20 Chief Complaint: Sacral pressure sore, Stage IV. History of Wound: Surgery 09/30/19 - Excision infected necrotic sacral pressure sore, Stage IV, with partial ostectomy for osteomyelitis. Wound care - Epifix #6 with wound veil. Operative culture - Anaerobic cocci and Bacteroides thetaiotamicron in the soft tissue and Anaerobic cocci in the bone. He was treated with IV Ertapenem and has finished them. Another wound culture was obtained on 12/30/19. It showed Enterococcus fecalis, Corynebacterium striatum and Fusobacterium nucleatum. He was placed on Augmentin and has finished them. Pathology - negative for osteomyelitis. Prealbumin from 09/29/19 was 18.9. Encourage nutritional supplementation with protein to help the healing process. CT Abdomen from 09/27/19 showed Soft tissue ulceration with extension into the right and left gluteus maximum muscle as with air. I suspect involvement of the distal coccygeal bony element.. Today he denies fever. His appetite is good. Progress of Wound: Improved. - Physical Exam Vital Signs Temp Pulse Resp BP 96.8 F L 73 16 154/84 H 03/30/20 10:34 03/30/20 10:34 03/30/20 10:34 03/30/20 10:34 Wound Measurements and Assessment WC - Nurse 1 - General Ulcer Measurement Start: 03/16/20 11:04 Freq: Status: Active Protocol: Activity Type Activity Date Activity User E-Sign Co-Sign Detail Recorded Client Recorded Date Recorded By Document 03/30/20 10:34 [facility] [id number] 03/30/20 10:41 [facility] 03/30/20 10:34 Wound Center Nurse 1 [Ulcer Assessment] #1 Sacrum -Combined with other wound No -Current Size (cm) - Length 0.9 -Current Size (cm) - Width 1.2 -Current Size (cm) - Depth 0.1 -Total Square Cm 1.08 -Photo Taken No -Epithelialization Small 1-33% -Tunneling No -Undermining/Tunneling No -Circular Undermining No -Exudate Amt Medium -Exudate Type Serosanguineous -Wound Margin Distinct, Outline Attached -Granulation Amt Small (1-33%) -Granulation Quality Red -Slough/Fibrin Yes -Necrosis Amt Large (67-100%) -Necrotic Tissue Type Adherent Slough -Texture (Kori-wound Skin Appearance) Assessed, Scarring -Moisture (Kori-wound Skin Appearance Assessed ) -Color (Kori-wound Skin Appearance) Assessed -Temperature (Kori-wound Skin No Abnormality Appearance) (Pt Warm) -Tenderness on Palpation (Kori-wound No Skin Appearance) -Ulcer Cleansing soapy water -Foul Odor after Cleansing No -Anesthetic Used 5% Lidocaine Gel - Nurse 2 - General Ulcer CM Notes Start: 03/16/20 11:04 Freq: Status: Active Protocol: Activity Type Activity Date Activity User E-Sign Co-Sign Detail Recorded Client Recorded Date Recorded By Document 03/30/20 10:49 [email or web address] [id number] 03/30/20 10:56 CINDY 03/30/20 10:49 Wound Center Nurse 2 [Procedure/Treatment] -Time 10:49 -Correct Patient Yes -Correct Side, Site, Position Yes -Correct Procedure Yes -Procedure Performed Yes -Type of Procedure Debridement -Clinical Debridement Subcutaneous -Tissue Removed Subcutaneous -Post Debridement (cm) - Length 1.0 -Post Debridement (cm) - Width 0.8 -Post Debridement (cm) - Depth 0.1 -Total Square (Post) (cm) 0.80 -Area of Debridement (cm) - Length 1.0 -Area of Debridement (cm) - Width 0.8 -Total Square (Area) (cm) 0.80 -Tunneling No -Undermining/Tunneling No -Circular Undermining No -Wound/Ulcer Outcome Not Healed -Ulcer Cleansing Rinsed/ Irrigated with Saline -Foul Odor after Cleansing No -Bioengineered Tissue Yes -Type of Bioengineered Tissue Epifix 18mm Disc -Expiration Date 10/13/24 -Product Lot Number [id number] -Percent Used 100 -Saline Lot Number [id number] -Bleeding Controlled with Pressure -Other saline [id number] -Offloading No -Treatment Response Procedure Tolerated Well -Debridement - Subq, 1st 20sq cm No -Apply Skin Sub - 1st 25 sq cm - Legs 1 -Epifix 18mm Disc 3 Query Text:18mm = 3 [See Physician Procedure note for Specifics] Pain Scale: 0-10 Numeric [Pain] -Is Patient Pain Free? Yes - Nurse 3 - General Ulcer D/C NN Start: 03/16/20 11:04 Freq: Status: Active Protocol: Activity Type Activity Date Activity User E-Sign Co-Sign Detail Recorded Client Recorded Date Recorded By Document 03/30/20 10:56 [id number] 03/30/20 10:57 03/30/20 10:56 Wound Care Nurse 3 [Wound Dressing] #1 Sacrum -Ulcer Cleansing Rinsed/ Irrigated with Saline -Foul Odor after Cleansing No -Primary Dressing Applied Mepilex Border -Mepilex Border 1 Pain Scale: 0-10 Numeric [Pain] -Is Patient Pain Free? Yes - Visit Discharge [Visit Discharge Information] -Discharge Condition Stable -Ambulatory Status Ambulatory -Transportation Private Auto -Medication Reconcilliation completed Yes & provided to patient/care provider -Clinical Summary of Care Provided Yes Debridement Note Post-Debridement Measurements/Treatment - Nurse 2 - General Ulcer CM Notes Start: 03/16/20 11:04 Freq: Status: Active Protocol: Activity Type Activity Date Activity User E-Sign Co-Sign Detail Recorded Client Recorded Date Recorded By Document 03/16/20 11:44 [id number] 03/16/20 11:49 Document 03/23/20 11:28 [id number] 03/23/20 11:30 Document 03/30/20 10:49 [id number] 03/30/20 10:56 03/16/20 03/23/20 03/30/20 11:44 11:28 10:49 Wound Center Nurse 2 #1 Sacrum -Time 11:44 11:28 10:49 -Correct Patient Yes Yes Yes -Correct Side, Site, Position Yes Yes Yes -Correct Procedure Yes Yes Yes -Procedure Performed Yes Yes Yes -Type of Procedure Debridement Debridement Debridement -Clinical Debridement Subcutaneous Subcutaneous Subcutaneous -Tissue Removed Subcutaneous Subcutaneous Subcutaneous -Post Debridement (cm) - Length 1.5 1.4 1.0 -Post Debridement (cm) - Width 1.3 1.2 0.8 -Post Debridement (cm) - Depth 0.2 0.2 0.1 -Total Square (Post) (cm) 1.95 1.68 0.80 -Area of Debridement (cm) - Length 1.5 1.4 1.0 -Area of Debridement (cm) - Width 1.3 1.2 0.8 -Total Square (Area) (cm) 1.95 1.68 0.80 -Tunneling No No No -Undermining/Tunneling No No No -Circular Undermining No No No -Wound/Ulcer Outcome Not Healed Not Healed Not Healed -Ulcer Cleansing Rinsed/ Rinsed/ Rinsed/ Irrigated with Irrigated with Irrigated with Saline Saline Saline -Foul Odor after Cleansing No No No -Bioengineered Tissue Yes Yes Yes -Type of Bioengineered Tissue Epifix 18mm Epifix 18mm Epifix 18mm Disc Disc Disc -Expiration Date 11/12/24 10/13/24 10/13/24 -Product Lot Number [id number] -Percent Used 100 100 100 -Saline Lot Number [id number] -Bleeding Controlled with Pressure Pressure Pressure -Other saline [id number] -Offloading No No No -Treatment Response Procedure Procedure Procedure Tolerated Well Tolerated Well Tolerated Well -Debridement - Subq, 1st 20sq cm No No No -Apply Skin Sub - 1st 25 sq cm - Legs 1 1 1 -Epifix 18mm Disc 3 3 3 Query Text:18mm = 3 Pain Scale: 0-10 Numeric Is Patient Pain Free? Yes Yes Yes - Nurse 3 - General Ulcer D/C NN Start: 03/16/20 11:04 Freq: Status: Active Protocol: Activity Type Activity Date Activity User E-Sign Co-Sign Detail Recorded Client Recorded Date Recorded By Document 03/16/20 11:50 [id number] 03/16/20 11:50 Document 03/23/20 11:36 [facility] [id number] 03/23/20 11:37 [facility] Document 03/30/20 10:56 [id number] 03/30/20 10:57 03/16/20 03/23/20 03/30/20 11:50 11:36 10:56 Wound Care Nurse 3 #1 Sacrum -Ulcer Cleansing Rinsed/ Rinsed/ Rinsed/ Irrigated with Irrigated with Irrigated with Saline Saline Saline -Foul Odor after Cleansing No No No -Primary Dressing Applied Mepilex Border Mepilex Border, Mepilex Border Other -Other Dressing epifix per md -Mepilex Border 1 1 1 Treatment Response Procedure Tolerated Well Pain Scale: 0-10 Numeric Is Patient Pain Free? Yes Yes Yes - Visit Discharge Discharge Condition Stable Stable Stable Ambulatory Status Ambulatory Ambulatory Ambulatory Transportation Private Auto Private Auto Private Auto Accompanied by Medication Reconcilliation completed & Yes Yes provided to patient/care provider Clinical Summary of Care Provided Yes Yes Wound debrided: #1 Sacral area. Laterality: Not Applicable Wound Grade/Stage: IV. Type of Debridement: Excisional debridement Anesthesia Used: 4% Lidocaine Solution Depth: Down to and including healthy tissue, in the subcutaneous layer Percentage of wound debrided: 100 Instrument Used: 3mm curette Tissue Removed: subcutaneous tissue. Severity: Fat Layer Exposed Amount of bleeding with debridement: Mild Bleeding Controlled with: Pressure Patient tolerated procedure well, - - Epifix #7 applied today. Expiration - 10/13/24. Product Lot Number - [id number]. Percent used - 100%. Saline Lot Number - [id number]. Assessment/Plan Active Problems Former smoker (Chronic) Osteomyelitis of pelvis (Chronic) Sacral decubitus ulcer, stage IV (Chronic) Assessment: 1. Sacral pressure sore, Stage IV. 2. Clinical osteomyelitis. 3. Recent intubation for pneumonia. 4. Former smoker. Plan: Epifix #7 applied today. 100% of the product was used. Covered with Adaptic touch and Steri-Strips. Expiration - 10/13/24. Lot Number - [id number]. Percent used - 100%. Saline Lot Number - [id number]. Wound culture from 12/30/19 was postive for Enterococcus fecalis, Corynebacterium striatum and Fusobacterium nucleatum. He was placed on Augmentin and has finished them. Prealbumin from 09/29/19 was 18.9. Encourage nutritional supplementation with protein to help the healing process. Followup one week. 150xxx-152xx: [id number] Skin sub graft trnk/arm/leg - ICD-10 - L89.154, M86.9, Z87.01, Z87.891
[2020-04-06 11:09] VITALS: BP 157/82; PULSE 61; TEMP 35.9; BMI 25.7
--- NOTE | 2020-04-06 13:12 | PCM.WC.PN ---
(1) Sacral decubitus ulcer, stage IV Status: Chronic Code(s): L89.154 - Pressure ulcer of sacral region, stage 4 (2) Osteomyelitis of pelvis Status: Chronic Code(s): M86.9 - Osteomyelitis, unspecified (3) Former smoker Status: Chronic Code(s): Z87.891 - Personal history of nicotine dependence Type of Wound Date of Service: 04/06/20 Chief Complaint: Sacral pressure sore, Stage IV. History of Wound: Surgery 09/30/19 - Excision infected necrotic sacral pressure sore, Stage IV, with partial ostectomy for osteomyelitis. Wound care - Epifix #7 with wound veil placed last week. Will take a break from Epifix and place collagen hydrogel covered with gauze daily. Patient may shower and wash ulcer with soap and water daily. Operative culture - Anaerobic cocci and Bacteroides thetaiotamicron in the soft tissue and Anaerobic cocci in the bone. He was treated with IV Ertapenem and has finished them. Another wound culture was obtained on 12/30/19. It showed Enterococcus fecalis, Corynebacterium striatum and Fusobacterium nucleatum. He was placed on Augmentin and has finished them. Pathology - negative for osteomyelitis. Prealbumin from 09/29/19 was 18.9. Encourage nutritional supplementation with protein to help the healing process. CT Abdomen from 09/27/19 showed Soft tissue ulceration with extension into the right and left gluteus maximum muscle as with air. I suspect involvement of the distal coccygeal bony element.. Today he denies fever. His appetite is good. Progress of Wound: Improved. - Physical Exam Vital Signs Temp Pulse Resp BP 96.6 F L 61 16 157/82 H 04/06/20 11:09 04/06/20 11:09 03/30/20 10:34 04/06/20 11:09 General: Alert, Oriented x3, Cooperative HEENT: Atraumatic Oral: Moist Mucosa Lungs: Normal air movement Cardiovascular: Regular rate Extremities: Capillary Refill Less than 3 Seconds Skin: Ulcer/ Wound - Sacral ulcer is pink and stable. Minimal improvement this week. Wound Measurements and Assessment WC - Nurse 1 - General Ulcer Measurement Start: 03/16/20 11:04 Freq: Status: Active Protocol: Activity Type Activity Date Activity User E-Sign Co-Sign Detail Recorded Client Recorded Date Recorded By Document 04/06/20 11:09 [facility] [id number] 04/06/20 11:14 [facility] 04/06/20 11:09 Wound Center Nurse 1 [Ulcer Assessment] #1 Sacrum -Current Size (cm) - Length 1 -Current Size (cm) - Width 0.7 -Current Size (cm) - Depth 0.1 -Total Square Cm 0.7 -Exudate Amt Small -Exudate Type Serosanguineous -Wound Margin Distinct, Outline Attached -Granulation Amt Small (1-33%) -Granulation Quality [place],Red -Necrosis Amt Small (1-33%) -Necrotic Tissue Type Adherent Slough -Texture (Kori-wound Skin Appearance) Assessed, Scarring -Moisture (Kori-wound Skin Appearance No Abnormality ) -Color (Kori-wound Skin Appearance) No Abnormality, Assessed -Temperature (Kori-wound Skin No Abnormality Appearance) (Pt Warm) -Tenderness on Palpation (Kori-wound No Skin Appearance) -Ulcer Cleansing soapy water -Foul Odor after Cleansing No -Anesthetic Used 5% Lidocaine Gel WC - Nurse 2 - General Ulcer CM Notes Start: 03/16/20 11:04 Freq: Status: Active Protocol: Activity Type Activity Date Activity User E-Sign Co-Sign Detail Recorded Client Recorded Date Recorded By Document 04/06/20 12:01 [id number] 04/06/20 12:02 04/06/20 12:01 Wound Center Nurse 2 [Procedure/Treatment] -Time 12:02 -Correct Patient Yes -Correct Side, Site, Position Yes -Correct Procedure Yes -Procedure Performed Yes -Type of Procedure Debridement -Clinical Debridement Subcutaneous -Tissue Removed Subcutaneous -Post Debridement (cm) - Length 0.9 -Post Debridement (cm) - Width 0.7 -Post Debridement (cm) - Depth 0.2 -Total Square (Post) (cm) 0.63 -Area of Debridement (cm) - Length 0.9 -Area of Debridement (cm) - Width 0.7 -Total Square (Area) (cm) 0.63 -Tunneling No -Undermining/Tunneling No -Circular Undermining No -Wound/Ulcer Outcome Not Healed -Ulcer Cleansing Rinsed/ Irrigated with Saline -Foul Odor after Cleansing No -Bioengineered Tissue No -Bleeding Controlled with Pressure -Offloading No -Treatment Response Procedure Tolerated Well -Debridement - Subq, 1st 20sq cm Yes [See Physician Procedure note for Specifics] Pain Scale: 0-10 Numeric [Pain] -Is Patient Pain Free? Yes - Nurse 3 - General Ulcer D/C NN Start: 03/16/20 11:04 Freq: Status: Active Protocol: Activity Type Activity Date Activity User E-Sign Co-Sign Detail Recorded Client Recorded Date Recorded By Document 04/06/20 12:16 MW [id number] 04/06/20 12:16 MW 04/06/20 12:16 Wound Care Nurse 3 [Wound Dressing] #1 Sacrum -Ulcer Cleansing Rinsed/ Irrigated with Saline -Foul Odor after Cleansing No -Negative Pressure Wound Therapy N/A -Primary Dressing Applied C Hydrogel ($) -Primary Dressing Covered/Secured Dry Gauze, with Secured with Tape [Post Procedure Tolerated] -Treatment Response Procedure Tolerated Well Pain Scale: 0-10 Numeric [Pain] -Is Patient Pain Free? Yes Teaching: Wound Center [Wound Center Education] (Items with an * have Printed Materials Available- Please identify what is given to patient under the Teaching materials given to patient and caregiver Section. Dressing Your Wound -Person Taught Patient,Family -Teaching Method Discussion, Demonstration -Response to teaching Verbalize understanding - Visit Discharge [Visit Discharge Information] -Discharge Condition Stable -Ambulatory Status Ambulatory -Transportation Private Auto -Accompanied by -Medication Reconcilliation completed No & provided to patient/care provider -Clinical Summary of Care Provided Yes Musculoskeletal: No Tenderness to Palpation of Joints or Extremities Neurological: Cranial nerves II-XII grossly intact Psych/Mental Status: Normal Affect, Appropriate Debridement Note Post-Debridement Measurements/Treatment - Nurse 2 - General Ulcer CM Notes Start: 03/16/20 11:04 Freq: Status: Active Protocol: Activity Type Activity Date Activity User E-Sign Co-Sign Detail Recorded Client Recorded Date Recorded By Document 03/16/20 11:44 [id number] 03/16/20 11:49 Document 03/23/20 11:28 [id number] 03/23/20 11:30 Document 03/30/20 10:49 [id number] 03/30/20 10:56 Document 04/06/20 12:01 [id number] 04/06/20 12:02 JF 03/16/20 03/23/20 03/30/20 11:44 11:28 10:49 Wound Center Nurse 2 #1 Sacrum -Time 11:44 11:28 10:49 -Correct Patient Yes Yes Yes -Correct Side, Site, Position Yes Yes Yes -Correct Procedure Yes Yes Yes -Procedure Performed Yes Yes Yes -Type of Procedure Debridement Debridement Debridement -Clinical Debridement Subcutaneous Subcutaneous Subcutaneous -Tissue Removed Subcutaneous Subcutaneous Subcutaneous -Post Debridement (cm) - Length 1.5 1.4 1.0 -Post Debridement (cm) - Width 1.3 1.2 0.8 -Post Debridement (cm) - Depth 0.2 0.2 0.1 -Total Square (Post) (cm) 1.95 1.68 0.80 -Area of Debridement (cm) - Length 1.5 1.4 1.0 -Area of Debridement (cm) - Width 1.3 1.2 0.8 -Total Square (Area) (cm) 1.95 1.68 0.80 -Tunneling No No No -Undermining/Tunneling No No No -Circular Undermining No No No -Wound/Ulcer Outcome Not Healed Not Healed Not Healed -Ulcer Cleansing Rinsed/ Rinsed/ Rinsed/ Irrigated with Irrigated with Irrigated with Saline Saline Saline -Foul Odor after Cleansing No No No -Bioengineered Tissue Yes Yes Yes -Type of Bioengineered Tissue Epifix 18mm Epifix 18mm Epifix 18mm Disc Disc Disc -Expiration Date 11/12/24 10/13/24 10/13/24 -Product Lot Number [id number] -Percent Used 100 100 100 -Saline Lot Number [id number] -Bleeding Controlled with Pressure Pressure Pressure -Other saline [id number] -Offloading No No No -Treatment Response Procedure Procedure Procedure Tolerated Well Tolerated Well Tolerated Well -Debridement - Subq, 1st 20sq cm No No No -Apply Skin Sub - 1st 25 sq cm - Legs 1 1 1 -Epifix 18mm Disc 3 3 3 Pain Scale: 0-10 Numeric Is Patient Pain Free? Yes Yes Yes 04/06/20 12:01 Wound Center Nurse 2 #1 Sacrum -Time 12:02 -Correct Patient Yes -Correct Side, Site, Position Yes -Correct Procedure Yes -Procedure Performed Yes -Type of Procedure Debridement -Clinical Debridement Subcutaneous -Tissue Removed Subcutaneous -Post Debridement (cm) - Length 0.9 -Post Debridement (cm) - Width 0.7 -Post Debridement (cm) - Depth 0.2 -Total Square (Post) (cm) 0.63 -Area of Debridement (cm) - Length 0.9 -Area of Debridement (cm) - Width 0.7 -Total Square (Area) (cm) 0.63 -Tunneling No -Undermining/Tunneling No -Circular Undermining No -Wound/Ulcer Outcome Not Healed -Ulcer Cleansing Rinsed/ Irrigated with Saline -Foul Odor after Cleansing No -Bioengineered Tissue No -Type of Bioengineered Tissue -Expiration Date -Product Lot Number -Percent Used -Saline Lot Number -Bleeding Controlled with Pressure -Other -Offloading No -Treatment Response Procedure Tolerated Well -Debridement - Subq, 1st 20sq cm Yes -Apply Skin Sub - 1st 25 sq cm - Legs -Epifix 18mm Disc Pain Scale: 0-10 Numeric Is Patient Pain Free? Yes - Nurse 3 - General Ulcer D/C NN Start: 03/16/20 11:04 Freq: Status: Active Protocol: Activity Type Activity Date Activity User E-Sign Co-Sign Detail Recorded Client Recorded Date Recorded By Document 03/16/20 11:50 [id number] 03/16/20 11:50 Document 03/23/20 11:36 [facility] [id number] 03/23/20 11:37 [facility] Document 03/30/20 10:56 JF [id number] 03/30/20 10:57 Document 04/06/20 12:16 MW [id number] 04/06/20 12:16 MW 03/16/20 03/23/20 03/30/20 11:50 11:36 10:56 Wound Care Nurse 3 #1 Sacrum -Ulcer Cleansing Rinsed/ Rinsed/ Rinsed/ Irrigated with Irrigated with Irrigated with Saline Saline Saline -Foul Odor after Cleansing No No No -Negative Pressure Wound Therapy -Primary Dressing Applied Mepilex Border Mepilex Border, Mepilex Border Other -Other Dressing epifix per md -Primary Dressing Covered/Secured with -Mepilex Border 1 1 1 Treatment Response Procedure Tolerated Well Pain Scale: 0-10 Numeric Is Patient Pain Free? Yes Yes Yes Teaching: Wound Center Dressing Your Wound -Person Taught -Teaching Method -Response to teaching - Visit Discharge Discharge Condition Stable Stable Stable Ambulatory Status Ambulatory Ambulatory Ambulatory Transportation Private Auto Private Auto Private Auto Accompanied by Medication Reconcilliation completed & Yes Yes provided to patient/care provider Clinical Summary of Care Provided Yes Yes 04/06/20 12:16 Wound Care Nurse 3 #1 Sacrum -Ulcer Cleansing Rinsed/ Irrigated with Saline -Foul Odor after Cleansing No -Negative Pressure Wound Therapy N/A -Primary Dressing Applied C Hydrogel ($) -Other Dressing -Primary Dressing Covered/Secured with Dry Gauze, Secured with Tape -Mepilex Border Treatment Response Procedure Tolerated Well Pain Scale: 0-10 Numeric Is Patient Pain Free? Yes Teaching: Wound Center Dressing Your Wound -Person Taught Patient,Family -Teaching Method Discussion, Demonstration -Response to teaching Verbalize understanding WC - Visit Discharge Discharge Condition Stable Ambulatory Status Ambulatory Transportation Private Auto Accompanied by Medication Reconcilliation completed & No provided to patient/care provider Clinical Summary of Care Provided Yes Wound debrided: Sacral ulcer Type of Debridement: Excisional debridement Anesthesia Used: 5% Lidocaine Gel Depth: Down to and including healthy tissue, in the subcutaneous layer Percentage of wound debrided: 100 Instrument Used: 5mm curette Tissue Removed: Subcutaneous tissue and slough Severity: Fat Layer Exposed Amount of bleeding with debridement: Mild Bleeding Controlled with: Pressure Patient tolerated procedure well Assessment/Plan Active Problems Former smoker (Chronic) Osteomyelitis of pelvis (Chronic) Sacral decubitus ulcer, stage IV (Chronic) Assessment: 1. Sacral pressure sore, Stage IV. 2. Clinical osteomyelitis. 3. Recent intubation for pneumonia. 4. Former smoker. Plan: Epifix #7 applied last week. 100% of the product was used. Covered with Adaptic touch and Steri-Strips. Expiration - 10/13/24. Lot Number - [id number]. Percent used - 100%. Saline Lot Number - [id number]. Will take a week off from the Epifix and do collagen hydrogel daily covered by gauze. This will allow the patient to wash daily with soap and water. We can place Epifix #8 next week. Wound culture from 12/30/19 was postive for Enterococcus fecalis, Corynebacterium striatum and Fusobacterium nucleatum. He was placed on Augmentin and has finished them. Prealbumin from 09/29/19 was 18.9. Encourage nutritional supplementation with protein to help the healing process. Followup one week. 111xxx-113xx: [id number] Eugenia subq tissue 20 sq cm/<
[2020-04-13 13:36] VITALS: BP 173/99; PULSE 65; RESP 20; TEMP 36.4; BMI 25.7
--- NOTE | 2020-04-13 15:11 | PCM.WC.PN ---
(1) Sacral decubitus ulcer, stage IV Status: Chronic Code(s): L89.154 - Pressure ulcer of sacral region, stage 4 (2) Osteomyelitis of pelvis Status: Chronic Code(s): M86.9 - Osteomyelitis, unspecified (3) Former smoker Status: Chronic Code(s): Z87.891 - Personal history of nicotine dependence Type of Wound Date of Service: 04/13/20 Chief Complaint: Sacral pressure sore, Stage IV. History of Wound: Surgery 09/30/19 - Excision infected necrotic sacral pressure sore, Stage IV, with partial ostectomy for osteomyelitis. Wound care - Epifix #8 with wound veil placed today. Operative culture - Anaerobic cocci and Bacteroides thetaiotamicron in the soft tissue and Anaerobic cocci in the bone. He was treated with IV Ertapenem and has finished them. Another wound culture was obtained on 12/30/19. It showed Enterococcus fecalis, Corynebacterium striatum and Fusobacterium nucleatum. He was placed on Augmentin and has finished them. Pathology - negative for osteomyelitis. Prealbumin from 09/29/19 was 18.9. Encourage nutritional supplementation with protein to help the healing process. CT Abdomen from 09/27/19 showed Soft tissue ulceration with extension into the right and left gluteus maximum muscle as with air. I suspect involvement of the distal coccygeal bony element.. Today he denies fever. His appetite is good. Progress of Wound: Improved. - Physical Exam Vital Signs Temp Pulse Resp BP 97.5 F L 65 20 H 173/99 H 04/13/20 13:36 04/13/20 13:36 04/13/20 13:36 04/13/20 13:36 General: Alert, Oriented x3, Cooperative HEENT: Atraumatic Oral: Moist Mucosa Lungs: Normal air movement Cardiovascular: Regular rate Extremities: No edema, Capillary Refill Less than 3 Seconds Skin: Ulcer/ Wound - Sacral ulcer beefy pink. Wound Measurements and Assessment WC - Nurse 1 - General Ulcer Measurement Start: 03/16/20 11:04 Freq: Status: Active Protocol: Activity Type Activity Date Activity User E-Sign Co-Sign Detail Recorded Client Recorded Date Recorded By Document 04/13/20 13:36 DL [id number] 04/13/20 13:40 DL 04/13/20 13:36 Wound Center Nurse 1 [Ulcer Assessment] #1 Sacrum -Current Size (cm) - Length 0.2 -Current Size (cm) - Width 0.2 -Current Size (cm) - Depth 0.1 -Total Square Cm 0.04 -Photo Taken No -Exudate Amt None Present -Wound Margin Thickened -Granulation Amt Small (1-33%) -Granulation Quality Pale -Necrosis Amt Small (1-33%) -Necrotic Tissue Type Adherent Slough -Structure Exposed N/A -Texture (Kori-wound Skin Appearance) Scarring -Moisture (Kori-wound Skin Appearance No Abnormality ) -Color (Kori-wound Skin Appearance) No Abnormality -Temperature (Kori-wound Skin No Abnormality Appearance) (Pt Warm) -Tenderness on Palpation (Kori-wound No Skin Appearance) -Ulcer Cleansing Rinsed/ Irrigated with Saline -Foul Odor after Cleansing No -Anesthetic Used 4% Lidocaine Solution WC - Nurse 2 - General Ulcer CM Notes Start: 03/16/20 11:04 Freq: Status: Active Protocol: Activity Type Activity Date Activity User E-Sign Co-Sign Detail Recorded Client Recorded Date Recorded By Document 04/13/20 14:07 CINDY [id number] 04/13/20 14:11 CINDY 04/13/20 14:07 Wound Center Nurse 2 [Procedure/Treatment] -Time 14:09 -Correct Patient Yes -Correct Side, Site, Position Yes -Correct Procedure Yes -Procedure Performed Yes -Type of Procedure Debridement -Clinical Debridement Subcutaneous -Tissue Removed Subcutaneous -Post Debridement (cm) - Length 1.0 -Post Debridement (cm) - Width 0.7 -Post Debridement (cm) - Depth 0.2 -Total Square (Post) (cm) 0.70 -Area of Debridement (cm) - Length 1 -Area of Debridement (cm) - Width 0.7 -Total Square (Area) (cm) 0.7 -Tunneling No -Undermining/Tunneling No -Circular Undermining No -Wound/Ulcer Outcome Not Healed -Ulcer Cleansing Rinsed/ Irrigated with Saline -Foul Odor after Cleansing No -Bioengineered Tissue Yes -Type of Bioengineered Tissue Epifix 18mm Disc -Expiration Date 01/13/25 -Product Lot Number [id number] -Percent Used 100 -Bleeding Controlled with Pressure -Other saline [id number] -Offloading No -Treatment Response Procedure Tolerated Well -Debridement - Subq, 1st 20sq cm No -Apply Skin Sub - 1st 25 sq cm - Legs 1 -Epifix 18mm Disc 3 Query Text:18mm = 3 [See Physician Procedure note for Specifics] Pain Scale: 0-10 Numeric [Pain] -Is Patient Pain Free? Yes - Nurse 3 - General Ulcer D/C NN Start: 03/16/20 11:04 Freq: Status: Active Protocol: Activity Type Activity Date Activity User E-Sign Co-Sign Detail Recorded Client Recorded Date Recorded By Document 04/13/20 14:12 [id number] 04/13/20 14:13 04/13/20 14:12 Wound Care Nurse 3 [Wound Dressing] #1 Sacrum -Ulcer Cleansing Rinsed/ Irrigated with Saline -Foul Odor after Cleansing No -Primary Dressing Applied Mepilex Border -Mepilex Border 1 Pain Scale: 0-10 Numeric [Pain] -Is Patient Pain Free? Yes - Visit Discharge [Visit Discharge Information] -Discharge Condition Stable -Ambulatory Status Ambulatory -Transportation Private Auto -Accompanied by -Medication Reconcilliation completed Yes & provided to patient/care provider -Clinical Summary of Care Provided Yes Musculoskeletal: No Tenderness to Palpation of Joints or Extremities Neurological: Cranial nerves II-XII grossly intact Psych/Mental Status: Normal Affect, Appropriate Debridement Note Post-Debridement Measurements/Treatment - Nurse 2 - General Ulcer CM Notes Start: 03/16/20 11:04 Freq: Status: Active Protocol: Activity Type Activity Date Activity User E-Sign Co-Sign Detail Recorded Client Recorded Date Recorded By Document 03/16/20 11:44 [id number] 03/16/20 11:49 Document 03/23/20 11:28 [id number] 03/23/20 11:30 Document 03/30/20 10:49 [id number] 03/30/20 10:56 Document 04/06/20 12:01 [id number] 04/06/20 12:02 Document 04/13/20 14:07 [id number] 04/13/20 14:11 03/16/20 03/23/20 03/30/20 11:44 11:28 10:49 Wound Center Nurse 2 #1 Sacrum -Time 11:44 11:28 10:49 -Correct Patient Yes Yes Yes -Correct Side, Site, Position Yes Yes Yes -Correct Procedure Yes Yes Yes -Procedure Performed Yes Yes Yes -Type of Procedure Debridement Debridement Debridement -Clinical Debridement Subcutaneous Subcutaneous Subcutaneous -Tissue Removed Subcutaneous Subcutaneous Subcutaneous -Post Debridement (cm) - Length 1.5 1.4 1.0 -Post Debridement (cm) - Width 1.3 1.2 0.8 -Post Debridement (cm) - Depth 0.2 0.2 0.1 -Total Square (Post) (cm) 1.95 1.68 0.80 -Area of Debridement (cm) - Length 1.5 1.4 1.0 -Area of Debridement (cm) - Width 1.3 1.2 0.8 -Total Square (Area) (cm) 1.95 1.68 0.80 -Tunneling No No No -Undermining/Tunneling No No No -Circular Undermining No No No -Wound/Ulcer Outcome Not Healed Not Healed Not Healed -Ulcer Cleansing Rinsed/ Rinsed/ Rinsed/ Irrigated with Irrigated with Irrigated with Saline Saline Saline -Foul Odor after Cleansing No No No -Bioengineered Tissue Yes Yes Yes -Type of Bioengineered Tissue Epifix 18mm Epifix 18mm Epifix 18mm Disc Disc Disc -Expiration Date 11/12/24 10/13/24 10/13/24 -Product Lot Number [id number] -Percent Used 100 100 100 -Saline Lot Number [id number] -Bleeding Controlled with Pressure Pressure Pressure -Other saline [id number] -Offloading No No No -Treatment Response Procedure Procedure Procedure Tolerated Well Tolerated Well Tolerated Well -Debridement - Subq, 1st 20sq cm No No No -Apply Skin Sub - 1st 25 sq cm - Legs 1 1 1 -Epifix 18mm Disc 3 3 3 Query Text:18mm = 3 Pain Scale: 0-10 Numeric Is Patient Pain Free? Yes Yes Yes 04/06/20 04/13/20 12:01 14:07 Wound Center Nurse 2 #1 Sacrum -Time 12:02 14:09 -Correct Patient Yes Yes -Correct Side, Site, Position Yes Yes -Correct Procedure Yes Yes -Procedure Performed Yes Yes -Type of Procedure Debridement Debridement -Clinical Debridement Subcutaneous Subcutaneous -Tissue Removed Subcutaneous Subcutaneous -Post Debridement (cm) - Length 0.9 1.0 -Post Debridement (cm) - Width 0.7 0.7 -Post Debridement (cm) - Depth 0.2 0.2 -Total Square (Post) (cm) 0.63 0.70 -Area of Debridement (cm) - Length 0.9 1 -Area of Debridement (cm) - Width 0.7 0.7 -Total Square (Area) (cm) 0.63 0.7 -Tunneling No No -Undermining/Tunneling No No -Circular Undermining No No -Wound/Ulcer Outcome Not Healed Not Healed -Ulcer Cleansing Rinsed/ Rinsed/ Irrigated with Irrigated with Saline Saline -Foul Odor after Cleansing No No -Bioengineered Tissue No Yes -Type of Bioengineered Tissue Epifix 18mm Disc -Expiration Date 01/13/25 -Product Lot Number [id number] -Percent Used 100 -Saline Lot Number -Bleeding Controlled with Pressure Pressure -Other saline [id number] -Offloading No No -Treatment Response Procedure Procedure Tolerated Well Tolerated Well -Debridement - Subq, 1st 20sq cm Yes No -Apply Skin Sub - 1st 25 sq cm - Legs 1 -Epifix 18mm Disc 3 Query Text:18mm = 3 Pain Scale: 0-10 Numeric Is Patient Pain Free? Yes Yes - Nurse 3 - General Ulcer D/C NN Start: 03/16/20 11:04 Freq: Status: Active Protocol: Activity Type Activity Date Activity User E-Sign Co-Sign Detail Recorded Client Recorded Date Recorded By Document 03/16/20 11:50 [id number] 03/16/20 11:50 Document 03/23/20 11:36 [facility] [id number] 03/23/20 11:37 [facility] Document 03/30/20 10:56 [id number] 03/30/20 10:57 Document 04/06/20 12:16 MW [id number] 04/06/20 12:16 MW Document 04/13/20 14:12 [id number] 04/13/20 14:13 03/16/20 03/23/20 03/30/20 11:50 11:36 10:56 Wound Care Nurse 3 #1 Sacrum -Ulcer Cleansing Rinsed/ Rinsed/ Rinsed/ Irrigated with Irrigated with Irrigated with Saline Saline Saline -Foul Odor after Cleansing No No No -Negative Pressure Wound Therapy -Primary Dressing Applied Mepilex Border Mepilex Border, Mepilex Border Other -Other Dressing epifix per md -Primary Dressing Covered/Secured with -Mepilex Border 1 1 1 Treatment Response Procedure Tolerated Well Pain Scale: 0-10 Numeric Is Patient Pain Free? Yes Yes Yes Teaching: Wound Center Dressing Your Wound -Person Taught -Teaching Method -Response to teaching WC - Visit Discharge Discharge Condition Stable Stable Stable Ambulatory Status Ambulatory Ambulatory Ambulatory Transportation Private Auto [email or web address] Auto Accompanied by Medication Reconcilliation completed & Yes Yes provided to patient/care provider Clinical Summary of Care Provided Yes Yes 04/06/20 04/13/20 12:16 14:12 Wound Care Nurse 3 #1 Sacrum -Ulcer Cleansing Rinsed/ Rinsed/ Irrigated with Irrigated with Saline Saline -Foul Odor after Cleansing No No -Negative Pressure Wound Therapy N/A -Primary Dressing Applied C Hydrogel ($) Mepilex Border -Other Dressing -Primary Dressing Covered/Secured with Dry Gauze, Secured with Tape -Mepilex Border 1 Treatment Response Procedure Tolerated Well Pain Scale: 0-10 Numeric Is Patient Pain Free? Yes Yes Teaching: Wound Center Dressing Your Wound -Person Taught Patient,Family -Teaching Method Discussion, Demonstration -Response to teaching Verbalize understanding WC - Visit Discharge Discharge Condition Stable Stable Ambulatory Status Ambulatory Ambulatory Transportation [email or web address] Accompanied by Medication Reconcilliation completed & No Yes provided to patient/care provider Clinical Summary of Care Provided Yes Yes Wound debrided: Sacral ulcer Type of Debridement: Excisional debridement Anesthesia Used: 5% Lidocaine Gel Depth: Down to and including healthy tissue, in the subcutaneous layer Percentage of wound debrided: 100 Instrument Used: 3mm curette Tissue Removed: Subcutaneous tissue and slough Severity: Fat Layer Exposed Amount of bleeding with debridement: Mild Bleeding Controlled with: Pressure Patient tolerated procedure well Assessment/Plan Active Problems Former smoker (Chronic) Osteomyelitis of pelvis (Chronic) Sacral decubitus ulcer, stage IV (Chronic) Assessment: 1. Sacral pressure sore, Stage IV. 2. Clinical osteomyelitis. 3. Recent intubation for pneumonia. 4. Former smoker. Plan: Epifix #8 applied today. 100% of the product was used. Covered with Adaptic touch and Steri-Strips and topped with optiform. Wound culture from 12/30/19 was postive for Enterococcus fecalis, Corynebacterium striatum and Fusobacterium nucleatum. He was placed on Augmentin and has finished them. Prealbumin from 09/29/19 was 18.9. Encourage nutritional supplementation with protein to help the healing process. Followup one week. 150xxx-152xx: [id number] Skin sub graft trnk/arm/leg
== END 2020-04-13 23:59 ==
LOC: WC 13:45
PROVIDERS: PCP Internal Medicine Infectious Disease; Referring Provider Internal Medicine Infectious Disease; Visit Provider Nurse Practitioner Family
DX: L89.154 Pressure ulcer of sacral region, stage 4 (principal); Z87.891 Personal history of nicotine dependence; Z87.01 Personal history of pneumonia (recurrent); M46.28 Osteomyelitis of vertebra, sacral and sacrococcygeal region
CPT/HCPCS: 11042; 15271; Q4186

== ENCOUNTER 2020-05-04 10:15 | Outpatient (RCR) | payer MEDICARE, BC, SELFPAY ==
[2020-04-14 00:21] VITALS: BP 173/99; PULSE 65; RESP 20; TEMP 36.4
[2020-04-20 11:22] VITALS: BP 169/87; PULSE 62; RESP 16; TEMP 36.5; BMI 25.7
--- NOTE | 2020-04-20 13:08 | PCM.WC.PN ---
(1) Sacral decubitus ulcer, stage IV Status: Chronic Code(s): L89.154 - Pressure ulcer of sacral region, stage 4 (2) Osteomyelitis of pelvis Status: Chronic Code(s): M86.9 - Osteomyelitis, unspecified (3) Former smoker Status: Chronic Code(s): Z87.891 - Personal history of nicotine dependence Type of Wound Date of Service: 04/20/20 Chief Complaint: Sacral pressure sore, Stage IV. History of Wound: Surgery 09/30/19 - Excision infected necrotic sacral pressure sore, Stage IV, with partial ostectomy for osteomyelitis. Wound care - Epifix #9 with wound veil placed today. Operative culture - Anaerobic cocci and Bacteroides thetaiotamicron in the soft tissue and Anaerobic cocci in the bone. He was treated with IV Ertapenem and has finished them. Another wound culture was obtained on 12/30/19. It showed Enterococcus fecalis, Corynebacterium striatum and Fusobacterium nucleatum. He was placed on Augmentin and has finished them. Pathology - negative for osteomyelitis. Prealbumin from 09/29/19 was 18.9. Encourage nutritional supplementation with protein to help the healing process. CT Abdomen from 09/27/19 showed Soft tissue ulceration with extension into the right and left gluteus maximum muscle as with air. I suspect involvement of the distal coccygeal bony element.. Today he denies fever. His appetite is good. Progress of Wound: Improved. - Physical Exam Vital Signs Temp Pulse Resp BP 97.7 F L 62 16 169/87 H 04/20/20 11:22 04/20/20 11:22 04/20/20 11:22 04/20/20 11:22 General: Alert, Oriented x3, Cooperative HEENT: Atraumatic Oral: Moist Mucosa Lungs: Normal air movement Cardiovascular: Regular rate Extremities: Capillary Refill Less than 3 Seconds Skin: Ulcer/ Wound - Sacral ulcer is pink and improving in size, pink with good granulation tissue Wound Measurements and Assessment WC - Nurse 1 - General Ulcer Measurement Start: 04/20/20 11:22 Freq: Status: Active Protocol: Activity Type Activity Date Activity User E-Sign Co-Sign Detail Recorded Client Recorded Date Recorded By Document 04/20/20 11:22 [facility] [id number] 04/20/20 11:32 BM 04/20/20 11:22 Wound Center Nurse 1 [Ulcer Assessment] #1 Sacrum -Combined with other wound No -Current Size (cm) - Length 0.1 -Current Size (cm) - Width 0.1 -Current Size (cm) - Depth 0.1 -Total Square Cm 0.01 -Photo Taken No -Tunneling No -Undermining/Tunneling No -Circular Undermining No -Exudate Amt Small -Exudate Type Serosanguineous -Wound Margin Distinct, Outline Attached -Slough/Fibrin Yes -Necrosis Amt Large (67-100%) -Necrotic Tissue Type Adherent Slough -Texture (Kori-wound Skin Appearance) Assessed, Scarring -Moisture (Kori-wound Skin Appearance Assessed,Dry/ ) Scaly -Color (Kori-wound Skin Appearance) Assessed -Temperature (Kori-wound Skin No Abnormality Appearance) (Pt Warm) -Tenderness on Palpation (Kori-wound No Skin Appearance) -Ulcer Cleansing soapy water -Foul Odor after Cleansing No -Anesthetic Used 5% Lidocaine Gel WC - Nurse 2 - General Ulcer CM Notes Start: 04/20/20 11:22 Freq: Status: Active Protocol: Activity Type Activity Date Activity User E-Sign Co-Sign Detail Recorded Client Recorded Date Recorded By Document 04/20/20 11:51 [id number] 04/20/20 11:59 04/20/20 11:51 Wound Center Nurse 2 [Procedure/Treatment] -Time 11:52 -Correct Patient Yes -Correct Side, Site, Position Yes -Correct Procedure Yes -Procedure Performed Yes -Type of Procedure Debridement -Clinical Debridement Subcutaneous -Tissue Removed Subcutaneous -Post Debridement (cm) - Length 0.5 -Post Debridement (cm) - Width 0.5 -Post Debridement (cm) - Depth 0.2 -Total Square (Post) (cm) 0.25 -Area of Debridement (cm) - Length 0.5 -Area of Debridement (cm) - Width 0.5 -Total Square (Area) (cm) 0.25 -Tunneling No -Undermining/Tunneling No -Circular Undermining No -Wound/Ulcer Outcome Not Healed -Ulcer Cleansing Rinsed/ Irrigated with Saline -Foul Odor after Cleansing No -Bioengineered Tissue Yes -Type of Bioengineered Tissue Epifix 18mm Disc -Expiration Date 01/13/25 -Product Lot Number [id number] -Percent Used 100 -Bleeding Controlled with Pressure -Other saline [id number] -Offloading No -Treatment Response Procedure Tolerated Well -Debridement - Subq, 1st 20sq cm No -Apply Skin Sub - 1st 25 sq cm - Legs 1 -Epifix 18mm Disc 3 Query Text:18mm = 3 [See Physician Procedure note for Specifics] Pain Scale: 0-10 Numeric [Pain] -Is Patient Pain Free? Yes - Nurse 3 - General Ulcer D/C NN Start: 04/20/20 11:22 Freq: Status: Active Protocol: Activity Type Activity Date Activity User E-Sign Co-Sign Detail Recorded Client Recorded Date Recorded By Document 04/20/20 12:00 CINDY [id number] 04/20/20 12:01 04/20/20 12:00 Wound Care Nurse 3 [Wound Dressing] #1 Sacrum -Other Dressing Epifix/wound veil/steri- stripped -Primary Dressing Covered/Secured Other with -Other Covering Mepilex adhesive Pain Scale: 0-10 Numeric [Pain] -Is Patient Pain Free? Yes - Visit Discharge [Visit Discharge Information] -Discharge Condition Stable -Ambulatory Status Ambulatory -Transportation Private Auto -Accompanied by -Medication Reconcilliation completed Yes & provided to patient/care provider -Clinical Summary of Care Provided Yes Musculoskeletal: No Tenderness to Palpation of Joints or Extremities Neurological: Cranial nerves II-XII grossly intact Psych/Mental Status: Normal Affect, Appropriate Debridement Note Post-Debridement Measurements/Treatment - Nurse 2 - General Ulcer CM Notes Start: 04/20/20 11:22 Freq: Status: Active Protocol: Activity Type Activity Date Activity User E-Sign Co-Sign Detail Recorded Client Recorded Date Recorded By Document 04/20/20 11:51 [id number] 04/20/20 11:59 04/20/20 11:51 Wound Center Nurse 2 #1 Sacrum -Time 11:52 -Correct Patient Yes -Correct Side, Site, Position Yes -Correct Procedure Yes -Procedure Performed Yes -Type of Procedure Debridement -Clinical Debridement Subcutaneous -Tissue Removed Subcutaneous -Post Debridement (cm) - Length 0.5 -Post Debridement (cm) - Width 0.5 -Post Debridement (cm) - Depth 0.2 -Total Square (Post) (cm) 0.25 -Area of Debridement (cm) - Length 0.5 -Area of Debridement (cm) - Width 0.5 -Total Square (Area) (cm) 0.25 -Tunneling No -Undermining/Tunneling No -Circular Undermining No -Wound/Ulcer Outcome Not Healed -Ulcer Cleansing Rinsed/ Irrigated with Saline -Foul Odor after Cleansing No -Bioengineered Tissue Yes -Type of Bioengineered Tissue Epifix 18mm Disc -Expiration Date 01/13/25 -Product Lot Number [id number] -Percent Used 100 -Bleeding Controlled with Pressure -Other saline [id number] -Offloading No -Treatment Response Procedure Tolerated Well -Debridement - Subq, 1st 20sq cm No -Apply Skin Sub - 1st 25 sq cm - Legs 1 -Epifix 18mm Disc 3 Query Text:18mm = 3 Pain Scale: 0-10 Numeric Is Patient Pain Free? Yes - Nurse 3 - General Ulcer D/C NN Start: 04/20/20 11:22 Freq: Status: Active Protocol: Activity Type Activity Date Activity User E-Sign Co-Sign Detail Recorded Client Recorded Date Recorded By Document 04/20/20 12:00 [id number] 04/20/20 12:01 04/20/20 12:00 Wound Care Nurse 3 #1 Sacrum -Other Dressing Epifix/wound veil/steri- stripped -Primary Dressing Covered/Secured with Other -Other Covering Mepilex adhesive Pain Scale: 0-10 Numeric Is Patient Pain Free? Yes - Visit Discharge Discharge Condition Stable Ambulatory Status Ambulatory Transportation Private Auto Accompanied by Medication Reconcilliation completed & Yes provided to patient/care provider Clinical Summary of Care Provided Yes Wound debrided: Sacral ulcer Type of Debridement: Excisional debridement Anesthesia Used: 5% Lidocaine Gel Depth: Down to and including healthy tissue, in the subcutaneous layer Percentage of wound debrided: 100 Instrument Used: 3mm curette Tissue Removed: Subcutaneous tissue and slough Severity: Limited To Skin Breakdown Amount of bleeding with debridement: Mild Bleeding Controlled with: Pressure Patient tolerated procedure well Assessment/Plan Active Problems Former smoker (Chronic) Osteomyelitis of pelvis (Chronic) Sacral decubitus ulcer, stage IV (Chronic) Assessment: 1. Sacral pressure sore, Stage IV. 2. Clinical osteomyelitis. 3. Recent intubation for pneumonia. 4. Former smoker. Plan: Epifix #9 applied today. 100% of the product was used. Covered with wound and Steri-Strips and topped with Mepilex dressing. Wound culture from 12/30/19 was postive for Enterococcus fecalis, Corynebacterium striatum and Fusobacterium nucleatum. He was placed on Augmentin and has finished them. Prealbumin from 09/29/19 was 18.9. Encourage nutritional supplementation with protein to help the healing process. Followup one week 150xxx-152xx: [id number] Skin sub graft trnk/arm/leg
[2020-04-27 11:54] VITALS: BP 148/89; PULSE 60; RESP 20; TEMP 36.8; BMI 25.7
--- NOTE | 2020-04-27 12:57 | PCM.WC.PN ---
Type of Wound Date of Service: 04/27/20 Chief Complaint: Sacral pressure sore, Stage IV. History of Wound: Surgery 09/30/19 - Excision infected necrotic sacral pressure sore, Stage IV, with partial ostectomy for osteomyelitis. Wound care - Completed 10 applications of Epifix. Operative culture - Anaerobic cocci and Bacteroides thetaiotamicron in the soft tissue and Anaerobic cocci in the bone. He was treated with IV Ertapenem and has finished them. Another wound culture was obtained on 12/30/19. It showed Enterococcus fecalis, Corynebacterium striatum and Fusobacterium nucleatum. He was placed on Augmentin and has finished them. Pathology - negative for osteomyelitis. Prealbumin from 09/29/19 was 18.9. Encourage nutritional supplementation with protein to help the healing process. CT Abdomen from 09/27/19 showed Soft tissue ulceration with extension into the right and left gluteus maximum muscle as with air. I suspect involvement of the distal coccygeal bony element.. Today he denies fever. His appetite is good. Progress of Wound: Almost healed. - Physical Exam Vital Signs Temp Pulse Resp BP 98.3 F 60 20 H 148/89 H 04/27/20 11:54 04/27/20 11:54 04/27/20 11:54 04/27/20 11:54 General: Alert, Oriented x3 HEENT: PERRLA, EOMI Oral: Moist Mucosa Neck: Supple Lungs: Clear to auscultation Cardiovascular: Regular rate, Regular Rhythm Abdomen: Soft, Non-Distended Wound Measurements and Assessment WC - Nurse 1 - General Ulcer Measurement Start: 04/20/20 11:22 Freq: Status: Active Protocol: Activity Type Activity Date Activity User E-Sign Co-Sign Detail Recorded Client Recorded Date Recorded By Document 04/27/20 11:54 DL [id number] 04/27/20 11:58 DL 04/27/20 11:54 Wound Center Nurse 1 [Ulcer Assessment] #1 Sacrum -Current Size (cm) - Length 0.6 -Current Size (cm) - Width 0.6 -Current Size (cm) - Depth 0.1 -Total Square Cm 0.36 -Photo Taken No -Exudate Amt None Present -Wound Margin Thickened -Granulation Amt Small (1-33%) -Necrosis Amt Small (1-33%) -Necrotic Tissue Type Adherent Slough -Structure Exposed N/A -Texture (Kori-wound Skin Appearance) Scarring -Moisture (Kori-wound Skin Appearance Dry/Scaly ) -Color (Kori-wound Skin Appearance) No Abnormality -Temperature (Kori-wound Skin No Abnormality Appearance) (Pt Warm) -Tenderness on Palpation (Kori-wound No Skin Appearance) -Ulcer Cleansing Wound Cleanser -Foul Odor after Cleansing No -Anesthetic Used 5% Lidocaine Gel BAM - Nurse 2 - General Ulcer CM Notes Start: 04/20/20 11:22 Freq: Status: Active Protocol: Activity Type Activity Date Activity User E-Sign Co-Sign Detail Recorded Client Recorded Date Recorded By Document 04/27/20 12:25 [id number] 04/27/20 12:31 04/27/20 12:25 Wound Center Nurse 2 [Procedure/Treatment] -Time 12:27 -Correct Patient Yes -Correct Side, Site, Position Yes -Correct Procedure Yes -Procedure Performed Yes -Type of Procedure Debridement -Clinical Debridement Epidermis / Dermis -Tissue Removed Epidermis, Dermis -Post Debridement (cm) - Length 0.1 -Post Debridement (cm) - Width 0.1 -Post Debridement (cm) - Depth 0.1 -Total Square (Post) (cm) 0.01 -Area of Debridement (cm) - Length 0.1 -Area of Debridement (cm) - Width 0.1 -Total Square (Area) (cm) 0.01 -Tunneling No -Undermining/Tunneling No -Circular Undermining No -Wound/Ulcer Outcome Healed- Epithelialized -Ulcer Cleansing Rinsed/ Irrigated with Saline -Foul Odor after Cleansing No -Bioengineered Tissue No -Bleeding Controlled with Pressure -Offloading No -Treatment Response Procedure Tolerated Well -Debridement - Subq, 1st 20sq cm No [See Physician Procedure note for Specifics] Pain Scale: 0-10 Numeric [Pain] -Is Patient Pain Free? Yes - Nurse 3 - General Ulcer D/C NN Start: 04/20/20 11:22 Freq: Status: Active Protocol: Activity Type Activity Date Activity User E-Sign Co-Sign Detail Recorded Client Recorded Date Recorded By Document 04/27/20 12:34 [id number] 04/27/20 12:35 04/27/20 12:34 Wound Care Nurse 3 [Wound Dressing] #1 Sacrum -Ulcer Cleansing Rinsed/ Irrigated with Saline -Foul Odor after Cleansing No -Primary Dressing Applied C Hydrogel ($) -Primary Dressing Covered/Secured Dry Gauze, with Secured with Tape Pain Scale: 0-10 Numeric [Pain] -Is Patient Pain Free? Yes WC - Visit Discharge [Visit Discharge Information] -Discharge Condition Stable -Ambulatory Status Ambulatory -Transportation Private Auto -Medication Reconcilliation completed Yes & provided to patient/care provider -Clinical Summary of Care Provided Yes Neurological: Cranial nerves II-XII grossly intact Psych/Mental Status: Normal Affect, Appropriate Debridement Note Post-Debridement Measurements/Treatment - Nurse 2 - General Ulcer CM Notes Start: 04/20/20 11:22 Freq: Status: Active Protocol: Activity Type Activity Date Activity User E-Sign Co-Sign Detail Recorded Client Recorded Date Recorded By Document 04/20/20 11:51 [id number] 04/20/20 11:59 Document 04/27/20 12:25 [id number] 04/27/20 12:31 04/20/20 04/27/20 11:51 12:25 Wound Center Nurse 2 #1 Sacrum -Time 11:52 12:27 -Correct Patient Yes Yes -Correct Side, Site, Position Yes Yes -Correct Procedure Yes Yes -Procedure Performed Yes Yes -Type of Procedure Debridement Debridement -Clinical Debridement Subcutaneous Epidermis / Dermis -Tissue Removed Subcutaneous Epidermis, Dermis -Post Debridement (cm) - Length 0.5 0.1 -Post Debridement (cm) - Width 0.5 0.1 -Post Debridement (cm) - Depth 0.2 0.1 -Total Square (Post) (cm) 0.25 0.01 -Area of Debridement (cm) - Length 0.5 0.1 -Area of Debridement (cm) - Width 0.5 0.1 -Total Square (Area) (cm) 0.25 0.01 -Tunneling No No -Undermining/Tunneling No No -Circular Undermining No No -Wound/Ulcer Outcome Not Healed Healed- Epithelialized -Ulcer Cleansing Rinsed/ Rinsed/ Irrigated with Irrigated with Saline Saline -Foul Odor after Cleansing No No -Bioengineered Tissue Yes No -Type of Bioengineered Tissue Epifix 18mm Disc -Expiration Date 01/13/25 -Product Lot Number [id number] -Percent Used 100 -Bleeding Controlled with Pressure Pressure -Other saline [id number] -Offloading No No -Treatment Response Procedure Procedure Tolerated Well Tolerated Well -Debridement - Subq, 1st 20sq cm No No -Apply Skin Sub - 1st 25 sq cm - Legs 1 -Epifix 18mm Disc 3 Pain Scale: 0-10 Numeric Is Patient Pain Free? Yes Yes - Nurse 3 - General Ulcer D/C NN Start: 04/20/20 11:22 Freq: Status: Active Protocol: Activity Type Activity Date Activity User E-Sign Co-Sign Detail Recorded Client Recorded Date Recorded By Document 04/20/20 12:00 [id number] 04/20/20 12:01 Document 04/27/20 12:34 [id number] 04/27/20 12:35 04/20/20 04/27/20 12:00 12:34 Wound Care Nurse 3 #1 Sacrum -Ulcer Cleansing Rinsed/ Irrigated with Saline -Foul Odor after Cleansing No -Primary Dressing Applied C Hydrogel ($) -Other Dressing Epifix/wound veil/steri- stripped -Primary Dressing Covered/Secured with Other Dry Gauze, Secured with Tape -Other Covering Mepilex adhesive Pain Scale: 0-10 Numeric Is Patient Pain Free? Yes Yes - Visit Discharge Discharge Condition Stable Stable Ambulatory Status Ambulatory Ambulatory Transportation Private Auto Private Auto Accompanied by Medication Reconcilliation completed & Yes Yes provided to patient/care provider Clinical Summary of Care Provided Yes Yes Wound debrided: #1 Sacral area. Laterality: Not Applicable Wound Grade/Stage: IV. Type of Debridement: Selective debridement Anesthesia Used: 4% Lidocaine Solution Depth: - - Superficial scabbing was debrided. Thin layer of epithelialization noted. Percentage of wound debrided: 100 Instrument Used: 3mm curette Tissue Removed: superficial scabbing debrided. Severity: Limited To Skin Breakdown - thin layer of epithelialization noted. Amount of bleeding with debridement: Mild Bleeding Controlled with: Pressure Patient tolerated procedure well Assessment/Plan Active Problems Former smoker (Chronic) Osteomyelitis of pelvis (Chronic) Sacral decubitus ulcer, stage IV (Chronic) Assessment: 1. Sacral pressure sore, Stage IV. 2. Clinical osteomyelitis. 3. Recent intubation for pneumonia. 4. Former smoker. Plan: He has completed 10 applications of Epifix. After selective debridement, there is a thin layer of epithelialization noted. Applied Collagen Hydrogel. Wound culture from 12/30/19 was postive for Enterococcus fecalis, Corynebacterium striatum and Fusobacterium nucleatum. He was placed on Augmentin and has finished them. Prealbumin from 09/29/19 was 18.9. Encourage nutritional supplementation with protein to help the healing process. Discussed with the patient that we need to allow the thin layer of epithelialization to strengthen and remodel. Followup one week. Office Visits / Consults: [id number] OV L4 Est - ICD-10 - L89.154, M86.9, Z87.01, Z87.891
[2020-05-04 10:02] VITALS: BP 167/85; PULSE 63; RESP 16; TEMP 36.1; BMI 25.7
--- NOTE | 2020-05-04 13:23 | PCM.WC.PN ---
(1) Sacral decubitus ulcer, stage IV Status: Chronic Code(s): L89.154 - Pressure ulcer of sacral region, stage 4 (2) Osteomyelitis of pelvis Status: Chronic Code(s): M86.9 - Osteomyelitis, unspecified (3) Former smoker Status: Chronic Code(s): Z87.891 - Personal history of nicotine dependence Type of Wound Date of Service: 05/04/20 Chief Complaint: Sacral pressure sore, Stage IV. History of Wound: Surgery 09/30/19 - Excision infected necrotic sacral pressure sore, Stage IV, with partial ostectomy for osteomyelitis. Wound care - Completed 10 applications of Epifix. He is healed today. Operative culture - Anaerobic cocci and Bacteroides thetaiotamicron in the soft tissue and Anaerobic cocci in the bone. He was treated with IV Ertapenem and has finished them. Another wound culture was obtained on 12/30/19. It showed Enterococcus fecalis, Corynebacterium striatum and Fusobacterium nucleatum. He was placed on Augmentin and has finished them. Pathology - negative for osteomyelitis. Prealbumin from 09/29/19 was 18.9. Encourage nutritional supplementation with protein to help the healing process. CT Abdomen from 09/27/19 showed Soft tissue ulceration with extension into the right and left gluteus maximum muscle as with air. I suspect involvement of the distal coccygeal bony element.. Today he denies fever. His appetite is good. Progress of Wound: He is healed today. - Physical Exam Vital Signs Temp Pulse Resp BP 96.9 F L 63 16 167/85 H 05/04/20 10:02 05/04/20 10:02 05/04/20 10:02 05/04/20 10:02 General: Alert, Oriented x3, Cooperative HEENT: Atraumatic Oral: Moist Mucosa Lungs: Normal air movement Cardiovascular: Regular rate Extremities: Capillary Refill Less than 3 Seconds Skin: Ulcer/ Wound - Sacral ulcer is healed today. Wound Measurements and Assessment WC - Nurse 1 - General Ulcer Measurement Start: 04/20/20 11:22 Freq: Status: Discharge Protocol: Activity Type Activity Date Activity User E-Sign Co-Sign Detail Recorded Client Recorded Date Recorded By Document 05/04/20 10:02 [facility] [id number] 05/04/20 10:07 [facility] Edit Status 05/04/20 10:46 MARIETTA DAEMON [facility]=>[facility] 05/04/20 10:46 BKG DAEMON 05/04/20 10:02 Wound Center Nurse 1 [Ulcer Assessment] #1 Sacrum -Combined with other wound No -Current Size (cm) - Length 0.1 -Current Size (cm) - Width 0.1 -Current Size (cm) - Depth 0.1 -Total Square Cm 0.01 -Photo Taken No -Epithelialization Large 67-100% -Tunneling No -Undermining/Tunneling No -Circular Undermining No -Granulation Amt None Present (0 %) -Slough/Fibrin Yes -Necrosis Amt Small (1-33%) -Necrotic Tissue Type Adherent Slough -Texture (Kori-wound Skin Appearance) Assessed, Scarring,Rash -Moisture (Kori-wound Skin Appearance Assessed,Dry/ ) Scaly -Color (Kori-wound Skin Appearance) Assessed -Temperature (Kori-wound Skin No Abnormality Appearance) (Pt Warm) -Tenderness on Palpation (Kori-wound No Skin Appearance) -Ulcer Cleansing Rinsed/ Irrigated with Saline -Foul Odor after Cleansing No -Anesthetic Used 5% Lidocaine Gel WC - Nurse 2 - General Ulcer CM Notes Start: 04/20/20 11:22 Freq: Status: Discharge Protocol: Activity Type Activity Date Activity User E-Sign Co-Sign Detail Recorded Client Recorded Date Recorded By Document 05/04/20 10:25 CINDY [id number] 05/04/20 10:31 Edit Status 05/04/20 10:46 TRICIA BHATIA Active=>Discharge [place] [id number] 05/04/20 10:46 MARIETTAChristine DAEMON 05/04/20 10:25 Wound Center Nurse 2 [Procedure/Treatment] -Correct Patient No -Correct Side, Site, Position No -Correct Procedure No -Procedure Performed No -Post Debridement (cm) - Length 0 -Post Debridement (cm) - Width 0 -Post Debridement (cm) - Depth 0 -Total Square (Post) (cm) 0 -Area of Debridement (cm) - Length 0 -Area of Debridement (cm) - Width 0 -Total Square (Area) (cm) 0 -Wound/Ulcer Outcome Healed- Epithelialized [See Physician Procedure note for Specifics] Pain Scale: 0-10 Numeric [Pain] -Is Patient Pain Free? Yes WC - Nurse 3 - General Ulcer D/C NN Start: 04/20/20 11:22 Freq: Status: Discharge Protocol: Activity Type Activity Date Activity User E-Sign Co-Sign Detail Recorded Client Recorded Date Recorded By Document 05/04/20 10:31 [id number] 05/04/20 10:31 Edit Status 05/04/20 10:46 TRICIA DAPRATIMA Active=>Discharge [id number] 05/04/20 10:46 BKG DAEMON 05/04/20 10:31 -Is Patient Pain Free? Yes WC - Visit Discharge [Visit Discharge Information] -Discharge Condition Stable -Ambulatory Status Ambulatory -Transportation Private Auto -Medication Reconcilliation completed Yes & provided to patient/care provider -Clinical Summary of Care Provided Yes Musculoskeletal: No Tenderness to Palpation of Joints or Extremities Neurological: Cranial nerves II-XII grossly intact Psych/Mental Status: Normal Affect, Appropriate Debridement Note Post-Debridement Measurements/Treatment WC - Nurse 2 - General Ulcer CM Notes Start: 04/20/20 11:22 Freq: Status: Discharge Protocol: Activity Type Activity Date Activity User E-Sign Co-Sign Detail Recorded Client Recorded Date Recorded By Document 04/20/20 11:51 [id number] 04/20/20 11:59 Document 04/27/20 12:25 [id number] 04/27/20 12:31 Document 05/04/20 10:25 [id number] 05/04/20 10:31 04/20/20 04/27/20 05/04/20 11:51 12:25 10:25 Wound Center Nurse 2 #1 Sacrum -Time 11:52 12:27 -Correct Patient Yes Yes No -Correct Side, Site, Position Yes Yes No -Correct Procedure Yes Yes No -Procedure Performed Yes Yes No -Type of Procedure Debridement Debridement -Clinical Debridement Subcutaneous Epidermis / Dermis -Tissue Removed Subcutaneous Epidermis, Dermis -Post Debridement (cm) - Length 0.5 0.1 0 -Post Debridement (cm) - Width 0.5 0.1 0 -Post Debridement (cm) - Depth 0.2 0.1 0 -Total Square (Post) (cm) 0.25 0.01 0 -Area of Debridement (cm) - Length 0.5 0.1 0 -Area of Debridement (cm) - Width 0.5 0.1 0 -Total Square (Area) (cm) 0.25 0.01 0 -Tunneling No No -Undermining/Tunneling No No -Circular Undermining No No -Wound/Ulcer Outcome Not Healed Healed- Healed- Epithelialized Epithelialized -Ulcer Cleansing Rinsed/ Rinsed/ Irrigated with Irrigated with Saline Saline -Foul Odor after Cleansing No No -Bioengineered Tissue Yes No -Type of Bioengineered Tissue Epifix 18mm Disc -Expiration Date 01/13/25 -Product Lot Number [id number] -Percent Used 100 -Bleeding Controlled with Pressure Pressure -Other saline [id number] -Offloading No No -Treatment Response Procedure Procedure Tolerated Well Tolerated Well -Debridement - Subq, 1st 20sq cm No Yes -Apply Skin Sub - 1st 25 sq cm - Legs 1 -Epifix 18mm Disc 3 Pain Scale: 0-10 Numeric Is Patient Pain Free? Yes Yes Yes - Nurse 3 - General Ulcer D/C NN Start: 04/20/20 11:22 Freq: Status: Discharge Protocol: Activity Type Activity Date Activity User E-Sign Co-Sign Detail Recorded Client Recorded Date Recorded By Document 04/20/20 12:00 [id number] 04/20/20 12:01 Document 04/27/20 12:34 [id number] 04/27/20 12:35 Document 05/04/20 10:31 [id number] 05/04/20 10:31 04/20/20 04/27/20 05/04/20 12:00 12:34 10:31 Wound Care Nurse 3 #1 Sacrum -Ulcer Cleansing Rinsed/ Irrigated with Saline -Foul Odor after Cleansing No -Primary Dressing Applied C Hydrogel ($) -Other Dressing Epifix/wound veil/steri- stripped -Primary Dressing Covered/Secured with Other Dry Gauze, Secured with Tape -Other Covering Mepilex adhesive Pain Scale: 0-10 Numeric Is Patient Pain Free? Yes Yes Yes - Visit Discharge Discharge Condition Stable Stable Stable Ambulatory Status Ambulatory Ambulatory Ambulatory Transportation Private Auto Private Auto Private Auto Accompanied by Medication Reconcilliation completed & Yes Yes Yes provided to patient/care provider Clinical Summary of Care Provided Yes Yes Yes No debridement was completed today Assessment/Plan Active Problems Former smoker (Chronic) Osteomyelitis of pelvis (Chronic) Sacral decubitus ulcer, stage IV (Chronic) Assessment: 1. Sacral pressure sore, Stage IV. 2. Clinical osteomyelitis. 3. Recent intubation for pneumonia. 4. Former smoker. Plan: He has completed 10 applications of Epifix. He is healed today. Encouraged him to massage the area to help soften the scarring. He is having pain when he is reclining. Encouraged stretching and massge and if the pain worsens over time, he is to notify us and we can order pelvic floor PT. Follow up as needed. Wound culture from 12/30/19 was postive for Enterococcus fecalis, Corynebacterium striatum and Fusobacterium nucleatum. He was placed on Augmentin and has finished them. Prealbumin from 09/29/19 was 18.9. Encourage nutritional supplementation with protein to help the healing process. Discussed with the patient that we need to allow the thin layer of epithelialization to strengthen and remodel. Office Visits / Consults: [id number] L3 Est
== END 2020-05-04 10:46 | disposition home or self-care (01) ==
LOC: WC 10:15
PROVIDERS: PCP Internal Medicine Infectious Disease; Referring Provider Internal Medicine Infectious Disease; Visit Provider Nurse Practitioner Family
DX: L89.154 Pressure ulcer of sacral region, stage 4 (principal); Z87.891 Personal history of nicotine dependence; M46.28 Osteomyelitis of vertebra, sacral and sacrococcygeal region; Z87.01 Personal history of pneumonia (recurrent)
CPT/HCPCS: 11042; 15271; 99212; Q4186; G0463

== ENCOUNTER 2021-01-26 05:17 | Day surgery (SDC) | payer MEDICARE, BC, SELFPAY ==
[2021-01-26] VITALS (10 sets, daily range): BP systolic 102–148; BP diastolic 72–107; PULSE 61–80; RESP 16–18; TEMP 36.1–36.3; O2SAT 94–100; BMI 28.2
[2021-01-26] MEDS: Lactated Ringers 1,000 ML 100 ML IV (06:02)
--- NOTE | 2021-01-26 06:10 | PCM.HP.STD ---
HPI - General HPI Narrative BESS EDMOND, is a 70 M who presents via open access today. 5 years ago I assisted him with a colonoscopy and detected some polyps. He also has a family history with a father had colon cancer. A year and a half ago the patient was when the first patients with a COVID-19. He developed a bedsore which required months of healing. He currently denies any abdominal pain. No bright red blood per rectum or melena. He does believe that he has residual COVID fog no history of DVT PFSH Medical History (Updated 01/26/21 @ 06:[address] Lydnon Mcdaniels MD) Back pain Former smoker Gastric reflux High cholesterol History of stress test Hypertension Sacral decubitus ulcer Wears glasses Home Medications metoprolol succinate 50 mg PO DAILY 12/12/13 [History Last Taken 01/25/21] multivitamin with folic acid [Thera] 1 tab PO DAILY 12/12/13 [History Last Taken 01/25/21] aspirin 81 mg PO DAILY@0800 09/27/19 [History Last Taken 01/23/21] simvastatin 40 mg PO QHS 09/27/19 [History Last Taken 01/25/21] lisinopril-hydrochlorothiazide 1 tab PO DAILY 01/25/21 [History Last Taken 01/25/21] omeprazole 20 mg PO DAILY 01/25/21 [History Last Taken 01/25/21] Allergy/AdvReac Type Severity Reaction Status Date / Time meloxicam Allergy Swelling Verified 01/26/21 05:42 Surgical History (Updated 01/25/21 @ 08:40 by Bonnie Clement) History of back surgery History of total left knee replacement Hx of appendectomy Hx of colonoscopy Hx of hernia repair Hx of shoulder surgery Social History Smoking Status: Former smoker ROS Constitutional Constitutional: Reports systems reviewed and no addt'l complaints, except as documented Cardiovascular Cardiovascular: Denies chest pain Respiratory/Chest Respiratory/Chest: Denies shortness of breath at rest Gastrointestinal Gastrointestinal: Denies abdominal pain, change in bowel habits, hematochezia or melena Vital Signs Vital Signs Vital Signs: 01/26/21 05:44 Temperature 97.3 F L Temperature Source Temporal Pulse Rate 80 Respiratory Rate 18 Respiratory Pattern Normal Blood Pressure 130/96 H Blood Pressure Mean 107 Blood Pressure Source Monitor Blood Pressure Position Sitting Blood Pressure Location Right Arm Pulse Ox 96 Oxygen Delivery Method Room Air Weight Weight: 225 lb 12.8 oz Body Mass Index (BMI) 28.2 Physical Exam Const alert, oriented x3 and no apparent distress General Appearance: cooperative and comfortable Eyes General Eye: normal appearance of both eyes Neck General: normal visual inspection Chest inspection of chest normal Resp Effort and Inspection: able to speak in complete sentences and symmetric chest movement Auscultation: clear to auscultation bilaterally Cardio regular rate and regular rhythm GI soft to palpation, non-tender and non-distended Extremity no calf tenderness Neuro oriented x3 Psych thought process normal Assessment & Plan Assessment/Plan (1) Personal history of colonic polyps: PLAN: 70-year-old gentleman with a personal history of colon polyps. I recommend him a colonoscopy with possible biopsy or polypectomy as indicated. He is aware of the technique, benefit, risk, alternatives. He has had an opportunity to ask and have questions answered. He presents via open access. Previous colonoscopy was 5 years prior. Lyndon Mcdaniels M.D., F.A.C.S.
--- NOTE | 2021-01-26 06:48 | OP.COLON_ITS ---
Patient Name: Jacob Wise Procedure Date: 01/26/2021 6:16 AM Date of : 1950 Age: 70 Procedure: Colonoscopy Indications: High risk colon cancer surveillance: Personal history of colonic polyps, Family history of colon cancer in a first-degree relative Providers: Lyndon Mcdaniels MD Medicines: Midazolam 3.5 mg IV, Meperidine 100 mg IV Patient Profile: Last Colonoscopy: 5 years ago. Complications: No immediate complications. Procedure: Pre-Anesthesia Assessment: - Prior to the procedure, a History and Physical was performed, and patient medications and allergies were reviewed. The patient's tolerance of previous anesthesia was also reviewed. The risks and benefits of the procedure and the sedation options and risks were discussed with the patient. All questions were answered, and informed consent was obtained. Prior Anticoagulants: The patient has taken no previous anticoagulant or antiplatelet agents. ASA Grade Assessment: II - A patient with mild systemic disease. After reviewing the risks and benefits, the patient was deemed in satisfactory condition to undergo the procedure. After I obtained informed consent, the scope was passed under direct vision. Throughout the procedure, the patient's blood pressure, pulse, and oxygen saturations were monitored continuously. The adult colonoscope was introduced through the anus and advanced to the cecum, identified by appendiceal orifice and ileocecal valve. The colonoscopy was performed without difficulty. The patient tolerated the procedure well. The quality of the bowel preparation was good. The ileocecal valve and the appendiceal orifice were photographed. Moderate Sedation: Moderate (conscious) sedation was administered by the endoscopy nurse and supervised by the endoscopist. The following parameters were monitored: oxygen saturation, heart rate, blood pressure, and response to care. Total physician intraservice time was 15 minutes. Scope In: 6:32:04 AM Scope Withdrawal Time 0 hours 6 minutes 39 seconds Scope Out: 6:42:57 AM Total Procedure Duration Time 0 hours 10 minutes 53 seconds Findings: The digital rectal exam findings include thrombosed external hemorrhoids, non-thrombosed internal hemorrhoids, internal hemorrhoids that prolapse with straining, but spontaneously regress to the resting position (Grade II) and enlarged prostate. Multiple diverticula were found in the entire colon. The exam was otherwise without abnormality. Impression: - Thrombosed external hemorrhoids, non-thrombosed internal hemorrhoids, internal hemorrhoids that prolapse with straining, but spontaneously regress to the resting position (Grade II) and enlarged prostate found on digital rectal exam. - Diverticulosis in the entire examined colon. - The examination was otherwise normal. - No specimens collected. Recommendation: - Discharge patient to home. - Resume previous diet. - Continue present medications. - Repeat colonoscopy in 5 years for surveillance. Procedure Code(s): --- Professional --- 05814, Colonoscopy, flexible; diagnostic, including collection of specimen(s) by brushing or washing, when performed (separate procedure) 50209, 59, Moderate sedation services provided by the same physician or other qualified health intensive care medicine specialist performing the diagnostic or therapeutic service that the sedation supports, requiring the presence of an independent trained observer to assist in the monitoring of the patient's level of consciousness and physiological status; initial 15 minutes of intraservice time, patient age 5 years or older Diagnosis Code(s): --- Professional --- Z86.010, Personal history of colonic polyps K64.1, Second degree hemorrhoids K64.5, Perianal venous thrombosis Z80.0, Family history of malignant neoplasm of digestive organs N40.0, Benign prostatic hyperplasia without lower urinary tract symptoms K57.30, Diverticulosis of large intestine without perforation or abscess without bleeding CPT copyright 2017 [employer]. All rights reserved. The codes documented in this report are preliminary and upon campus rep review may be revised to meet current compliance requirements. Lyndon Mcdaniels MD 01/26/2021 6:47:49 AM This report has been signed electronically. Number of Addenda: 0 Note Initiated On: 01/26/2021 6:16 AM
--- NOTE | 2021-01-26 06:49 | OP.CCLET_ITS ---
01/26/2021 Lucy Alvarado [address] [place] [address] Re : Colonoscopy procedure for Jacob Wise Dear Dr. Alvarado This procedure was performed on Tuesday, January 26, 2021. My impressions and recommendations are as follows: Impressions : - Thrombosed external hemorrhoids, non-thrombosed internal hemorrhoids, internal hemorrhoids that prolapse with straining, but spontaneously regress to the resting position (Grade II) and enlarged prostate found on digital rectal exam. - Diverticulosis in the entire examined colon. - The examination was otherwise normal. - No specimens collected. Recommendations : - Discharge patient to home. - Resume previous diet. - Continue present medications. - Repeat colonoscopy in 5 years for surveillance. My findings are described in the full procedure note, which is enclosed. If I can be of further assistance, please feel free to contact me at Doctor phone number(s): Work: . Sincerely, Lyndon Mcdaniels MD 01/26/2021 6:47:49 AM This report has been signed electronically.
== END 2021-01-26 07:47 | disposition home or self-care (01) ==
LOC: EN 05:21 → AC 05:22
PROVIDERS: PCP Internal Medicine Infectious Disease; Referring Provider Internal Medicine Infectious Disease; Visit Provider Surgery
PROC: 0DJD8ZZ Inspection of Lower Intestinal Tract, Via Natural or Artificial Opening Endoscopic (ICD-10-PCS; CPT 45378; principal; 2021-01-26 06:25)
DX: Z12.11 Encounter for screening for malignant neoplasm of colon (principal); K64.1 Second degree hemorrhoids; K57.30 Diverticulosis of large intestine without perforation or abscess without bleeding; K64.5 Perianal venous thrombosis; K21.9 Gastro-esophageal reflux disease without esophagitis; N40.0 Benign prostatic hyperplasia without lower urinary tract symptoms; I10 Essential (primary) hypertension; E78.00 Pure hypercholesterolemia, unspecified; Z79.82 Long term (current) use of aspirin; Z79.899 Other long term (current) drug therapy; Z86.010 Personal history of colon polyps; Z86.16 Personal history of COVID-19; Z87.891 Personal history of nicotine dependence; Z80.0 Family history of malignant neoplasm of digestive organs
CPT/HCPCS: G0105; 99152; 99153; J7120